=== PATIENT | female | born 1965 | race Caucasian/White ===

== ENCOUNTER → 2017-06-16 07:47 | Outpatient (CLI) | payer OTHER, SELFPAY ==
--- NOTE | 2017-06-16 07:55 | CT_ITS ---
STUDY: CT CHEST WITHOUT CONTRAST REASON FOR EXAM: Female, 52 years old. Follow-up for bilateral lung nodules. RADIATION DOSAGE (If Supplied By Facility): CTDIvol = ( 19.83 ) mGy, DLP = ( 698.68 ) mGycm TECHNIQUE: Transaxial imaging was performed without the administration of intravenous contrast material. Multiplanar coronal and sagittal images were reformatted. Individualized dose optimization techniques were used for this CT. COMPARISON: Comparison is made with prior study dated December 19, 2016. FINDINGS: Stable appearance of the tiny nodules seen in both lungs. There is no demonstrated pleural abnormality. Normal heart and pericardium. There are multiple small lymph nodes within the mediastinum, which are normal in size and morphology most compatible with reactive lymph hyperplasia. Normal hilar regions. Normal unenhanced pulmonary arteries. Normal aorta arch and descending thoracic aorta. Normal osseous structures. There is no demonstrated abnormality of the visualized upper abdomen. CT/Chest without Contrast IMPRESSION: Stable examination. Twelve-month follow-up is recommended. Electronically Signed: Jesus Chu MD at 8:48 EDT Tel [phone], Service support ,
== END ==
PROVIDERS: Family Provider Family Medicine; PCP Family Medicine; Visit Provider Family Medicine
DX: R91.8 Other nonspecific abnormal finding of lung field (principal)
CPT/HCPCS: 71250

== ENCOUNTER → 2017-09-14 16:12 | Outpatient (CLI) | payer OTHER, SELFPAY ==
--- NOTE | 2017-09-14 16:19 | BI_ITS ---
MAMMOGRAPHY - BILATERAL SCREENING REASON FOR EXAM: Female, 52 years old. Routine annual screening examination. PERTINENT HISTORY: Non-contributory. TECHNIQUE: Digital bilateral breast mychal (3D mammographic acquisition) in the CC and MLO projections. 2-D mediolateral oblique (MLO) and craniocaudad (CC) views of both breasts were obtained. CAD: Full Field Digital Mammography with Computer Added Detection was performed. COMPARISON: Comparison is made with prior study dated September 08, 2016 and September 08, 2015. FINDINGS: Breast Composition: There are scattered areas of fibroglandular density. There are no dominant masses or suspicious calcifications. Stable 8.9 mm well-defined nodular density in the upper aspect of the right breast. This most likely represents a small lymph node. No other significant abnormalities are identified. There has been no significant change since the prior study. BI/SCREENING MAMM (CAD), BILAT IMPRESSION: Stable bilateral screening mammogram. Yearly follow-up mammogram recommended. (A) ASSESSMENT CATEGORY: BIRADS Category 2: Benign. A letter regarding these results will be sent to the patient by the facility within 30 days. Approximately 10% of breast cancers are not detected by mammography. A normal mammogram should not delay biopsy of a clinically suspicious abnormality. [id number] Electronically Signed: Jesus Chu MD at 10:19 EDT Tel [phone], Service support ,
== END ==
PROVIDERS: Family Provider Family Medicine; PCP Family Medicine
DX: Z12.31 Encounter for screening mammogram for malignant neoplasm of breast (principal)
CPT/HCPCS: 77063; 77067

== ENCOUNTER → 2017-11-08 14:46 | Outpatient (CLI) | payer OTHER, SELFPAY ==
--- NOTE | 2017-11-08 14:49 | VDLE_ITS ---
Reason For Study: PAIN RIGHT LEFT GSV is normal. GSV is normal. CFV is compressible, spontaneous, phasic, CFV is compressible, spontaneous, phasic, competent and demonstrates normal competent, and demonstrates normal augmentation. augmentation. FV is compressible, spontaneous, phasic, FV is compressible, spontaneous, phasic, competent and demonstrates normal competent and demonstrates normal augmentation. augmentation. POP V is compressible, spontaneous, phasic, POP V is compressible, spontaneous, phasic, competent and demonstrates normal competent and demonstrates normal augmentation. augmentation. T/P Trunk is compressible. T/P Trunk is compressible. PTV is compressible. PTV is compressible. RT PerV is compressible. LT PerV is compressible. Procedure Exam performed in department. Difficult to visualize proximal calf veins bilaterally. Mid-Distal PTV and PeroV are compressible bilaterally. A preliminary report was called and/or faxed to DR CARSON. Interpretation Summary Deep veins of the lower extremities are bilaterally patent and compressible segmentally. There is no evidence of deep vein thrombosis on either side. Valvular competence appears intact within the proximal deep venous systems bilaterally. The greater saphenous veins appear bilaterally patent and compressible segmentally. Ordering Physician: Bhavik Carson Referring Physician: AVNI JI Performed By: Audrey Rico, BRANDON, RVT
== END ==
PROVIDERS: Family Provider Family Medicine; PCP Family Medicine; Visit Provider Podiatrist Foot & Ankle Surgery
DX: I82.409 Acute embolism and thrombosis of unspecified deep veins of unspecified lower extremity (principal); M79.669 Pain in unspecified lower leg; Z86.718 Personal history of other venous thrombosis and embolism
CPT/HCPCS: 93970

== ENCOUNTER → 2018-06-08 07:42 | Outpatient (CLI) | payer OTHER, SELFPAY ==
--- NOTE | 2018-06-08 07:50 | CT_ITS ---
STUDY: CT CHEST WITHOUT CONTRAST REASON FOR EXAM: Female, 53 years old. Lung nodules RADIATION DOSAGE (If Supplied By Facility): CTDIvol = ( 19.67 ) mGy, DLP = ( 717.59 ) mGycm TECHNIQUE: Transaxial imaging was performed without the administration of intravenous contrast material. Individualized dose optimization techniques were used for this CT. COMPARISON: None. FINDINGS: Lungs are clear of acute infiltration. There are multiple tiny bilateral noncalcified subcentimeter nodules the largest measuring approximately 6 mm in size in the right middle lobe.. There is no demonstrated pleural abnormality. Normal heart and pericardium. Normal mediastinum. Normal hilar regions. Normal unenhanced pulmonary arteries. Normal aorta arch and descending thoracic aorta. Dorsal spine demonstrates mild spondylosis There is no demonstrated abnormality of the visualized upper abdomen. No significant change since prior study CT/Chest without Contrast IMPRESSION: Stable appearance to bilateral subcentimeter nodules the largest measuring approximately 6 mm in size. Otherwise no significant abnormality unchanged since previous study Electronically Signed: Feliciano Loving MD at 21:25 EDT , Service support ,
== END ==
PROVIDERS: Family Provider Family Medicine; PCP Family Medicine; Referring Provider Family Medicine; Visit Provider Family Medicine
DX: R91.8 Other nonspecific abnormal finding of lung field (principal); R93.89 Abnormal findings on diagnostic imaging of other specified body structures
CPT/HCPCS: 71250

== ENCOUNTER → 2018-09-25 16:45 | Outpatient (CLI) | payer OTHER, SELFPAY ==
--- NOTE | 2018-09-25 16:47 | BI_ITS ---
MAMMOGRAPHY - BILATERAL SCREENING REASON FOR EXAM: Female, 53 years old. Routine annual screening examination. PERTINENT HISTORY: Non-contributory. TECHNIQUE: Digital bilateral breast jn (3D mammographic acquisition) in the CC and MLO projections. 2-D mediolateral oblique (MLO) and craniocaudad (CC) views of both breasts were obtained. CAD: Full Field Digital Mammography with Computer Added Detection was performed. COMPARISON: Comparison is made with prior examination dated September 14, 2017 and September 08, 2016. FINDINGS: Breast Composition: There are scattered areas of fibroglandular density. There are no dominant masses or suspicious calcifications. There is a stable 1 cm well-defined nodule in the upper lateral aspect of the right breast. This most likely represents a lymph node. This has been stable since multiple prior examinations. No other significant abnormalities are identified. There has been no significant change since the prior study. BI/SCREEN MAMM (CAD) W/JN BILAT IMPRESSION: Stable bilateral screening mammogram. Yearly follow-up mammogram recommended. (A) ASSESSMENT CATEGORY: BIRADS Category 2: Benign. A letter regarding these results will be sent to the patient by the facility within 30 days. Approximately 10% of breast cancers are not detected by mammography. A normal mammogram should not delay biopsy of a clinically suspicious abnormality. [id number] Electronically Signed: Jesus Chu, at 9:23 EDT , Service support ,
== END ==
PROVIDERS: Family Provider Family Medicine; PCP Family Medicine
DX: Z12.31 Encounter for screening mammogram for malignant neoplasm of breast (principal)
CPT/HCPCS: 77063; 77067

== ENCOUNTER → 2019-01-16 13:21 | Outpatient (CLI) | payer OTHER, SELFPAY ==
--- NOTE | 2019-01-16 13:23 | RAD_ITS ---
STUDY: X-RAY CHEST REASON FOR EXAM: Female, 53 years old. Cough TECHNIQUE: PA and lateral views of the chest COMPARISON: None. FINDINGS: The lungs are clear. There are no pleural effusions. There is no pneumothorax. The heart is normal in size. The visualized osseous structures are within normal limits. RAD/Chest PA and Lateral IMPRESSION: No acute thoracic pathology. Electronically Signed: Feliciano Chester, at 17:14 EST Tel , Service support ,
== END ==
PROVIDERS: Family Provider Family Medicine; PCP Family Medicine; Referring Provider Family Medicine; Visit Provider Family Medicine
DX: R05 Cough (principal)
CPT/HCPCS: 71046

== ENCOUNTER → 2019-01-17 15:33 | Outpatient (CLI) | payer OTHER, SELFPAY ==
--- NOTE | 2019-01-17 15:45 | CT_ITS ---
STUDY: CT CHEST WITH CONTRAST REASON FOR EXAM: Female, 53 years old. Shortness of breath RADIATION DOSAGE (If Supplied By Facility): CTDIvol = ( 12.24 ) mGy, DLP = ( 583.73 ) mGycm TECHNIQUE: Transaxial imaging was performed following intravenous administration of IV Isovue 370 100mL. Individualized dose optimization techniques were used for this CT. COMPARISON: CT chest 06/08/2018. FINDINGS: There is hazy infiltrate in the peripheral right upper lobe on series 4 image 37. There is a stable 3 mm right middle lobe nodule on image 63 and 4 mm right middle lobe nodule on image 66. Stable 3 mm posterior right upper lobe nodule on image 31. There is no demonstrated pleural abnormality. Normal heart and pericardium. Normal mediastinum. Normal hilar regions. Normal enhanced pulmonary arteries. Normal aorta arch and descending thoracic aorta. Normal osseous structures. There is no demonstrated abnormality of the visualized upper abdomen. CT/Chest WITH Contrast IMPRESSION: Hazy infiltrate in the peripheral right upper lobe may represent pneumonia in the proper clinical setting. Follow-up to resolution is recommended to exclude underlying nodule. Stable 3 to 4 mm pulmonary nodules. Electronically Signed: Sergo Zuniga, at 16:33 EST Tel , Service support ,
== END ==
PROVIDERS: Family Provider Family Medicine; PCP Family Medicine; Referring Provider Family Medicine; Visit Provider Family Medicine
DX: R06.09 Other forms of dyspnea (principal); R07.9 Chest pain, unspecified; R91.8 Other nonspecific abnormal finding of lung field
CPT/HCPCS: 71260; Q9967

== ENCOUNTER → 2019-09-04 17:15 | Outpatient (CLI) | payer OTHER, SELFPAY | PROVIDERS: PCP Family Medicine; Referring Provider Family Medicine; Visit Provider Family Medicine | DX: Z20.828 Contact with and (suspected) exposure to other viral communicable diseases (principal) | CPT/HCPCS: 87635; G2023; U0003 ==

== ENCOUNTER → 2019-09-09 11:14 | Outpatient (CLI) | payer OTHER, SELFPAY | PROVIDERS: PCP Family Medicine; Referring Provider Family Medicine; Visit Provider Family Medicine | DX: Z20.828 Contact with and (suspected) exposure to other viral communicable diseases (principal); R50.9 Fever, unspecified | CPT/HCPCS: 87635; G2023; U0003 ==

== ENCOUNTER → 2019-10-03 16:21 | Outpatient (CLI) | payer OTHER, SELFPAY ==
[2019-10-04 07:51] LABS: SARS-COV-2 TOTAL ABS Nonreactive (Nonreactive)
[2019-10-05 21:02] LABS: HSV 1 IgG < 0.91 index (0.00-0.90); HSV 2 IgG 0.96 index (0.00-0.90)
[2019-10-10 11:06] LABS: Rapid Plasmin Reagin (RPR) NONREACTIVE (NONREACTIVE)
== END ==
PROVIDERS: PCP Family Medicine; Visit Provider Family Medicine
DX: N39.0 Urinary tract infection, site not specified (principal); R05 Cough; Z20.828 Contact with and (suspected) exposure to other viral communicable diseases; Z20.2 Contact with and (suspected) exposure to infections with a predominantly sexual mode of transmission
CPT/HCPCS: 36415; 86592; 86695; 86696; 86769; 87086; 87088

== ENCOUNTER → 2019-10-07 16:18 | Outpatient (CLI) | payer OTHER, SELFPAY ==
--- NOTE | 2019-10-07 16:21 | BI_ITS ---
MAMMOGRAPHY - BILATERAL SCREENING REASON FOR EXAM: Female, 54 years old. Routine annual screening examination. PERTINENT HISTORY: Non-contributory. TECHNIQUE: Digital bilateral breast jn (3D mammographic acquisition) in the CC and MLO projections. 2-D mediolateral oblique (MLO) and craniocaudad (CC) views of both breasts were obtained. CAD: Full Field Digital Mammography with Computer Added Detection was performed. COMPARISON: Comparison is made with prior study dated 09/25/2018 and 09/14/2017. FINDINGS: Breast Composition: There are scattered areas of fibroglandular density. There are no dominant masses or suspicious calcifications. Stable 1 cm well-defined nodule in the upper lateral aspect of the right breast. This likely represents a small lymph node. No other significant abnormalities are identified. There has been no significant change since the prior study. BI/SCREEN MAMM (CAD) W/JN BILAT IMPRESSION: Stable bilateral screening mammogram. Yearly follow-up mammogram recommended. (A) ASSESSMENT CATEGORY: BIRADS Category 2: Benign. A letter regarding these results will be sent to the patient by the facility within 30 days. Approximately 10% of breast cancers are not detected by mammography. A normal mammogram should not delay biopsy of a clinically suspicious abnormality. [id number] Electronically Signed: Jesus Chu, at 8:41 EDT , Service support ,
== END ==
PROVIDERS: PCP Family Medicine; Referring Provider Family Medicine; Visit Provider Family Medicine
DX: Z12.31 Encounter for screening mammogram for malignant neoplasm of breast (principal)
CPT/HCPCS: 77063; 77067

== ENCOUNTER → 2019-10-09 15:01 | Outpatient (CLI) | payer OTHER, SELFPAY ==
[2019-10-09 17:27] LABS: CRP 6.22 mg/L (0.0-3.0)
[2019-10-09 17:36] LABS: Erythrocyte Sedimentation Rate 11 mm/hr (0-30)
[2019-10-11 20:07] LABS: SJOGREN'S Anti-SS-A test < 0.2 AI (0.0-0.9); SJOGREN'S Anti-SS-B test < 0.2 AI (0.0-0.9)
[2019-10-11 21:44] LABS: Anti-Nuclear Antibody Test Negative (.)
== END ==
PROVIDERS: PCP Family Medicine; Visit Provider Family Medicine
DX: N76.81 Mucositis (ulcerative) of vagina and vulva (principal); M25.50 Pain in unspecified joint; K11.7 Disturbances of salivary secretion
CPT/HCPCS: 36415; 85652; 86038; 86140; 86235

== ENCOUNTER → 2019-10-17 11:51 | Outpatient (CLI) | payer OTHER, SELFPAY ==
[2019-10-19 13:48] LABS: HSV 2 IgG < 0.91 index (0.00-0.90)
== END ==
PROVIDERS: PCP Family Medicine; Visit Provider Family Medicine
DX: N76.6 Ulceration of vulva (principal); N76.5 Ulceration of vagina
CPT/HCPCS: 36415; 86695; 86696; 87255

== ENCOUNTER → 2020-01-21 17:34 | Outpatient (CLI) | payer OTHER, SELFPAY | PROVIDERS: PCP Family Medicine; Referring Provider Family Medicine; Visit Provider Family Medicine | DX: Z20.828 Contact with and (suspected) exposure to other viral communicable diseases (principal) | CPT/HCPCS: 87635; C9803; U0003 ==

== ENCOUNTER → 2020-10-13 15:37 | Outpatient (CLI) | payer OTHER, SELFPAY ==
--- NOTE | 2020-10-13 15:41 | BI_ITS ---
MAMMOGRAPHY - BILATERAL SCREENING REASON FOR EXAM: Female, 55 years old. Routine annual screening examination. PERTINENT HISTORY: Non-contributory. TECHNIQUE: Digital bilateral breast jn (3D mammographic acquisition) in the CC and MLO projections. 2-D mediolateral oblique (MLO) and craniocaudad (CC) views of both breasts were obtained. CAD: Full Field Digital Mammography with Computer Added Detection was performed. COMPARISON: Comparison is made with prior examination dated 10/07/2019 and 09/25/2018. FINDINGS: Breast Composition: There are scattered areas of fibroglandular density. There are no dominant masses or suspicious calcifications. Stable 1 cm well-defined nodule in the upper lateral aspect of the right breast. A central fatty hilum is seen suggestive of a small lymph node. Stable benign appearing right axillary lymph nodes. No other significant abnormalities are identified. There has been no significant change since the prior study. BI/SCRN MAMM (CAD)W/JN BILAT IMPRESSION: Stable bilateral screening mammogram. Yearly follow-up mammogram recommended. (A) ASSESSMENT CATEGORY: BIRADS Category 2: Benign. A letter regarding these results will be sent to the patient by the facility within 30 days. Approximately 10% of breast cancers are not detected by mammography. A normal mammogram should not delay biopsy of a clinically suspicious abnormality. [id number] Electronically Signed: Jesus Chu MD at 8:12 EDT , Service support ,
== END ==
PROVIDERS: PCP Family Medicine; Referring Provider Obstetrics & Gynecology; Visit Provider Obstetrics & Gynecology
DX: Z12.31 Encounter for screening mammogram for malignant neoplasm of breast (principal)
CPT/HCPCS: 77063; 77067

== ENCOUNTER → 2021-01-01 16:15 | Outpatient (CLI) | payer OTHER, SELFPAY | PROVIDERS: PCP Family Medicine; Visit Provider Family Medicine | DX: Z20.828 Contact with and (suspected) exposure to other viral communicable diseases (principal) | CPT/HCPCS: 87635; U0005; U0003 ==

== ENCOUNTER 2021-03-04 09:10 | Outpatient (CLI) | payer OTHER, SELFPAY | END 2021-03-04 23:59 | disposition short-term general hospital (02) | LOC: LABSPEC 03-05 09:11 | PROVIDERS: PCP Family Medicine; Visit Provider Family Medicine | DX: Z11.52 Encounter for screening for COVID-19 (principal) | CPT/HCPCS: 87635; U0003; U0005 ==

== ENCOUNTER → 2021-08-18 | Outpatient (CLI) | payer OTHER, SELFPAY | END | disposition home or self-care (01) | PROVIDERS: PCP Family Medicine | DX: M79.89 Other specified soft tissue disorders (principal); I87.2 Venous insufficiency (chronic) (peripheral); I89.0 Lymphedema, not elsewhere classified; R60.9 Edema, unspecified | CPT/HCPCS: 36415; 83520 ==

== ENCOUNTER → 2021-08-26 | Outpatient (CLI) | payer OTHER, SELFPAY | END | disposition home or self-care (01) | PROVIDERS: PCP Family Medicine | DX: M79.89 Other specified soft tissue disorders (principal); I87.2 Venous insufficiency (chronic) (peripheral); I89.0 Lymphedema, not elsewhere classified; R60.9 Edema, unspecified; L29.9 Pruritus, unspecified | CPT/HCPCS: 36415 ==

== ENCOUNTER → 2021-09-15 | Outpatient (CLI) | payer OTHER, SELFPAY ==
--- NOTE | 2021-09-15 07:48 | VDLE_ITS ---
Reason For Study: swelling RIGHT LEFT CFV is compressible, spontaneous, phasic, CFV is compressible, spontaneous, phasic, competent and demonstrates normal competent, and demonstrates normal augmentation. augmentation. FV is compressible, spontaneous, phasic, FV is compressible, spontaneous, phasic, competent and demonstrates normal competent and demonstrates normal augmentation. augmentation. POP V is compressible, spontaneous, phasic, POP V is compressible, spontaneous, phasic, competent and demonstrates normal competent and demonstrates normal augmentation. augmentation. T/P Trunk is compressible. T/P Trunk is compressible. PTV is compressible. PTV is compressible. RT PerV is compressible. LT PerV is compressible. SFJ is INCOMPETENT and measures .73 cm. SFJ is INCOMPETENT and measures .92 cm. GSV proximal thigh measures .47 x .53 cm. GSV proximal thigh measures .66 x .69 cm. GSV at knee measures .33 x .34 cm. GSV at knee measures .58 x .53 cm. GSV INCOMPETENT throughout for greater than GSV INCOMPETENT throughout for greater than 0.5 seconds. 0.5 seconds. SSV proximal calf is INCOMPETENT for greater SSV proximal calf is INCOMPETENT for greater than 0.5 seconds and measures .21 x .23 cm. than 0.5 seconds and measures .23 x .26 cm. Guide Travel V 10 cm proximal to the medial ASV mid calf is INCOMPETENT for greater than malleolus isincompetent for greater than .5 0.5 seconds and measures .47 x .53 cm. seconds. ASV at knee is INCOMPETENT for greater than Procedure 0.5 seconds and measures .39 x .42 cm. This is a venous duplex using B-mode, color flow and spectral Doppler. Exam performed in department. The exam was diagnostic. VL/Venous Duplex US - Prosper Extrem Interpretation Summary Deep veins of the lower extremities are bilaterally patent and compressible seg mentally. There is no evidence of deep vein thrombosis on either side. Valvular competence appears in tact within the proximal deep venous systems bilaterally. The great saphenous veins appear bila terally patent and compressible segmentally. Sapheno-femoral junctions are bilaterally incompetent . Segmental valvular incompetence is noted within the great saphenous veins bilaterally. Small saphe nous veins are patent and incompetent bilaterally. The accessory saphenous vein at the level of the l eft knee is incompetent. The accessory saphenous vein in the left mid-calf is incompetent. An incompetent salon professional vein is noted in the right calf, located 10 centimeters proximal to the right medial malleolus. Ordering Physician: SALENA PHAM Referring Physician: SALENA PHAM Performed By: Marshall Grubbs RVT
== END | disposition home or self-care (01) ==
PROVIDERS: PCP Family Medicine
DX: M79.89 Other specified soft tissue disorders (principal); I87.2 Venous insufficiency (chronic) (peripheral); I89.0 Lymphedema, not elsewhere classified; R60.9 Edema, unspecified
CPT/HCPCS: 93970

== ENCOUNTER → 2021-10-14 | Outpatient (CLI) | payer OTHER, SELFPAY ==
--- NOTE | 2021-10-14 16:16 | BI_ITS ---
MAMMOGRAPHY - BILATERAL SCREENING REASON FOR EXAM: Female, 56 years old. Routine annual screening examination. PERTINENT HISTORY: Non-contributory. TECHNIQUE: Digital bilateral breast jn (3D mammographic acquisition) in the CC and MLO projections. 2-D mediolateral oblique (MLO) and craniocaudad (CC) views of both breasts were obtained. CAD: Full Field Digital Mammography with Computer Added Detection was performed. COMPARISON: Comparison is made with prior study dated 10/13/2020 and 10/07/2019. FINDINGS: Breast Composition: There are scattered areas of fibroglandular density. There are no dominant masses or suspicious calcifications. The previously seen well-defined nodule in the upper outer aspect of the right breast has decreased in size. It presently measures 4.8 mm. No other significant abnormalities are identified. There has been no significant change since the prior study. BI/SCRN MAMM (CAD)W/JN BILAT IMPRESSION: Stable bilateral screening mammogram. Yearly follow-up mammogram recommended. (A) ASSESSMENT CATEGORY: BIRADS Category 2: Benign. A letter regarding these results will be sent to the patient by the facility within 30 days. Approximately 10% of breast cancers are not detected by mammography. A normal mammogram should not delay biopsy of a clinically suspicious abnormality. [id number] Electronically Signed: Jesus Chu MD at 8:14 EDT ,
== END | disposition home or self-care (01) ==
LOC: OPBI 10-15 07:26
PROVIDERS: PCP Family Medicine; Visit Provider Obstetrics & Gynecology
DX: Z12.31 Encounter for screening mammogram for malignant neoplasm of breast (principal)
CPT/HCPCS: 77063; 77067

== ENCOUNTER → 2022-03-14 | Outpatient (CLI) | payer OTHER, SELFPAY | END | disposition home or self-care (01) | PROVIDERS: PCP Family Medicine | DX: M79.89 Other specified soft tissue disorders (principal); L29.9 Pruritus, unspecified; I87.2 Venous insufficiency (chronic) (peripheral) | CPT/HCPCS: 36415; 83520 ==

== ENCOUNTER 2022-07-08 07:43 | Outpatient (RCR) | payer OTHER, SELFPAY ==
[2022-07-08 08:02] VITALS: BP 144/77; PULSE 85; RESP 20; TEMP 36; BMI 41.8
--- NOTE | 2022-07-08 13:28 | PCM.WC.HP ---
History of Present Illness Date of Service: 07/08/22 Chief Complaint: Edema to lower legs bilaterally, dermatitis History of Wound: Marli is a 57 yo woman who presents to the wound center today for evaluation and treatment of lymphedema. She has been seen and evaluated by vascular surgery multiple times and dermatology as well. She recently underwent venous ablation but did not notice much improvement afterward. She has seen Dr. Troy, Dr. Talley and Dr. Ho. She has significant episodes of pruritus and excoriates her skin of her lower legs. She has never been treated with UNNA boots. She does wear compression stockings daily and tries to elevate her legs when possible and she is working on weight loss. She denies any fever, chills, increased pain. [facility] Medical History (Updated 07/08/22 @ 13:[address] Marli Weiss DO) History of fibula fracture Home Medications atorvastatin 10 mg tablet 5 mg PO QHS 10/03/14 [History Last Taken Unknown] fluoxetine 10 mg capsule 10 mg PO DAILY 10/03/14 [History Last Taken Unknown] rivaroxaban 20 mg tablet (Xarelto) 20 mg PO DAILY 10/03/14 [History Last Taken Unknown] estradiol 2 mg tablet 2 mg PO DAILY 12/19/16 [History Last Taken Unknown] lansoprazole 30 mg capsule,delayed release 30 mg PO DAILY 12/19/16 [History Last Taken Unknown] cyanocobalamin (B12)-cobamamide 5,000 mcg-100 mcg sublingual lozenge (B12) suze sublingual 07/08/22 [History Last Taken Unknown] dextroamphetamine-amphetamine 5 mg tablet (Adderall) 5 mg PO DAILY 07/08/22 [History Last Taken Unknown] levothyroxine 88 mcg capsule 88 mcg PO DAILY 07/08/22 [History Last Taken Unknown] metformin 500 mg tablet 500 mg PO DAILY 07/08/22 [History Last Taken Unknown] omeprazole 40 mg capsule,delayed release 20 mg PO BID 07/08/22 [History Last Taken Unknown] vit D3-folic acid-vit B2-B6-B12 2,000 unit-800 mcg-0.32 mg tablet tab PO 07/08/22 [History Last Taken Unknown] Allergy/AdvReac Type Severity Reaction Status Date / Time No Known Allergies Allergy Verified 07/08/22 08:22 Surgical History History of hysterectomy Social History Smoking Status: Former smoker ROS Constitutional Constitutional: Denies chills, fatigue or fever(s) Eyes Eyes: Denies blurry vision, change in vision or loss of vision ENT HEENT: Denies dysphagia, hearing loss or sore throat Cardiovascular Cardiovascular: Denies chest pain, edema or palpitations Respiratory/Chest Respiratory/Chest: Denies dry cough, dyspnea, dyspnea on exertion, productive cough or wheezing Gastrointestinal Gastrointestinal: Denies diarrhea, nausea or vomiting Genitourinary Genitourinary: Denies dysuria or polyuria Musculoskeletal Musculoskeletal: Denies arthralgias, joint stiffness or muscle weakness Integumentary Integumentary: Reports erythema and wounds Neurologic Neurologic: Denies dizziness, memory loss or weakness Psychiatric Psychiatric: Denies homicidal ideation or suicidal ideation Endocrine Endocrinology: Denies polydipsia, polyphagia or polyuria Hematologic/Lymphatic Hematologic/Lymphatic: Denies easy bleeding or easy bruising Allergic/Immunologic Allergic/Immunologic: Denies throat swelling, tongue swelling or urticaria Vital Signs Vital Signs Vital Signs: 07/08/22 08:02 Temperature 96.8 F L Temperature Source Temporal Pulse Rate 85 Respiratory Rate 20 H Blood Pressure 144/77 H Blood Pressure Mean 99 Blood Pressure Source Monitor Weight Weight: 117.386 kg Body Mass Index (BMI) 41.8 Physical Exam Const alert, oriented x3 and no apparent distress General Appearance: cooperative and comfortable HEENT normocephalic and head/scalp atraumatic Lymph Lymphatic: lymphedema moderate and non-pitting Resp normal respiratory effort Effort and Inspection: able to speak in complete sentences Cardio regular rate and regular rhythm Skin Wounds: wounds noted Wound Narrative: as in clinical panel Psych mental status grossly normal, thought process normal, cooperative and affect normal Debridement Note Debridement Note Post-Debridement Measurements and Additional Note: Post-Debridement Measurements/Treatment - Nurse 1 - General Ulcer Assessment Start: 07/08/22 07:52 Freq: Status: Active Protocol: AARON Activity Type Activity Date Activity User E-sign Co-sign Detail Recorded Client Recorded Date Recorded By Document 07/08/22 08:02 AMY [id number] 07/08/22 08:19 DL 07/08/22 08:02 - Today's Visit Information Type of service Initial Visit Arrival Mode Ambulatory Transfer Assistance None Patient Identification Verified (Name & Yes ) Patient Requires Transmission-Based No Precautions Height and Weight Height 5 ft 6 in Weight 117.386 kg Weight in Pounds 258.8 lbs Body Mass Index (BMI) 41.8 BMI Classification Obese BSA - Lennie 2.23 Vital Signs Temperature (97.8 F-99.1 F) 96.8 F L Temperature Source Temporal Pulse Rate (60-100) 85 Pulse Location Monitor Respiratory Rate (12-18) 20 H Respiratory rate source Observation Blood Pressure (90/60-120/80) 144/77 H Blood Pressure Mean 99 Source Monitor Pain Scale: 0-10 Numeric Is Patient Pain Free? Yes Lower Extremity Assessment/ Foot Assessment/ Toe Nail Assessment Right -Posterior Tibial Palpable Yes -Dorsalis Pedis Palpable Yes -Extremity Color Normal -Hair Growth on Legs No -Hair Growth on Toes No -Temperature of Extremity Warm -Capillary Refill Greater than 3 Seconds -Dependent Rubor No -Blanched when Elevated No -Lipodermatosclerosis No -Other Deformity No -Prior Foot Ulcer No -Charcot Joint No -Prior Amputation No -Thick No -Discolored No -Deformed No -Improper Length & Hygeine No Left -Posterior Tibial Palpable Yes -Dorsalis Pedis Palpable Yes -Extremity Color Normal -Hair Growth on Legs No -Hair Growth on Toes No -Temperature of Extremity Warm -Capillary Refill Greater than 3 Seconds -Dependent Rubor No -Blanched when Elevated No -Lipodermatosclerosis No -Other Deformity No -Prior Foot Ulcer No -Charcot Joint No -Prior Amputation No -Thick No -Discolored No -Deformed No -Improper Length & Hygeine No Neuropathy Assessment Feet - Top Side and Bottom <Entered> (a) Communication Assessment Preferred language Portuguese Able to Read Yes Able to Write Yes Right Hearing Abillity Normal Left Hearing Abillity Normal Visual Assistive Devices Glasses Teaching Assessment Preferences Verbal,Written Readiness To Learn Good Willingness to Engage in Self Management High Activies Readiness to Engage in Self Management High Activities Anxiety Level Calm Cooperation Cooperative Perception Coherent Interest in Health Problem Asks Questions Education Importance Acknowledges Need Does Patient Smoke tobacco or other No substances Smoking Status Former smoker Is Patient Diabetic No Functional Assessment Recent Decline in Ability to Perform Denies Any Declines Culture/Protestant/Investigation Specialist Cultural/Protestant Needs that may affect No Treatment Plan Would you allow our hospital microbial specialist to No meet you for the purpose of spiritual/ emotional support? Investigation Specialist to contact place of denominational No (a) 1 - + 2 - + 3 - _ 4 - _ - Nurse 1 - General Ulcer Measurement Start: 07/08/22 07:52 Freq: Status: Active Protocol: Activity Type Activity Date Activity User E-sign Co-sign Detail Recorded Client Recorded Date Recorded By Document 07/08/22 08:02 DL [id number] 07/08/22 08:19 DL 07/08/22 08:02 Wound Center Nurse 1 Right Calf (cm) 46.5 Right Ankle (cm) 24.8 Left Calf (cm) 47.5 Left Ankle (cm) 26 WC - Nurse 2 - General Ulcer CM Notes Start: 07/08/22 07:52 Freq: Status: Active Protocol: Activity Type Activity Date Activity User E-sign Co-sign Detail Recorded Client Recorded Date Recorded By Document 07/08/22 08:36 MW [id number] 07/08/22 08:47 MW 07/08/22 08:36 Pain Scale: 0-10 Numeric Is Patient Pain Free? Yes - Nurse 3 - General Ulcer D/C NN Start: 07/08/22 07:52 Freq: Status: Active Protocol: Activity Type Activity Date Activity User E-sign Co-sign Detail Recorded Client Recorded Date Recorded By Document 07/08/22 08:54 DL [id number] 07/08/22 08:56 DL 07/08/22 08:54 Wound Care Center Nurse 3 laura -Multi-Layered Wrap Application Multi-Layer Comp - Bilat ($ ) -Other Unna under Treatment Response Procedure Tolerated Well Pain Scale: 0-10 Numeric Is Patient Pain Free? Yes WC - Visit Discharge Discharge Condition Stable Ambulatory Status Ambulatory Transportation Private Auto Assessment/Plan Assessment/Plan (1) Obesity: CODE(S): E66.9 - Obesity, unspecified (2) Lymphedema due to venous disease: CODE(S): I89.0 - Lymphedema, not elsewhere classified; I99.9 - Unspecified disorder of circulatory system (3) Venous stasis dermatitis of both lower extremities: CODE(S): I87.2 - Venous insufficiency (chronic) (peripheral) PLAN: Plan Evaluation performed today in clinic as annotated above. No debridement necessary. At home wound-care instructions: Will apply 3M dressings bilaterally for compression and Zinc gauze underneath to treat dermatitis and try to decrease edema. Keep dressing clean and dry. Change on Monday or Monday. Referred to PCP for kenalog injection for pruritis as well. Off-loading: The patient was instructed to avoid pressure and friction on the affected areas. Reposition every 2 hours at minimum. Avoid prolonged standing and/or dangling of legs. When seated, feet should be elevated at chest level. Frequent ambulation is encouraged. Diet: Patient encouraged to increase protein intake while taking caution to avoid high carbohydrate and/or sugar intake. Labs/cultures/imaging: Follow-up: Return in 1 week for wound care follow up. Return sooner or report to the emergency room should symptoms worsen, or new symptoms arise. Note: [employer] speech recognition anatomic pathology manager software was used to create portions of this document. Sound-alike and misspelled words, as well as other anatomic pathology manager errors may be contained in the documentation.
== END 2022-07-27 23:59 | disposition home or self-care (01) ==
LOC: WC 07:43
PROVIDERS: PCP Family Medicine; Referring Provider Family Medicine; Visit Provider Family Medicine
DX: I87.2 Venous insufficiency (chronic) (peripheral) (principal); E66.9 Obesity, unspecified; L30.9 Dermatitis, unspecified; Z87.891 Personal history of nicotine dependence; I89.0 Lymphedema, not elsewhere classified; G62.9 Polyneuropathy, unspecified
CPT/HCPCS: 29581; 99213; G0463

== ENCOUNTER → 2022-09-09 | Outpatient (CLI) | payer OTHER, SELFPAY ==
[2022-09-09 16:18] LABS: Absolute Lymphocyte Count 1.62 X10^3/uL (0.83-4.51); Absolute Neutrophil Count 4.6 X10^3/uL (2.0-7.7); Basophil# 0.03 X10^3/uL; Basophil% 0.4 % (0-1); Eosinophil# 0.07 X10^3/uL; Hematocrit 43.4 % (37-47); Hemoglobin 13.8 g/dL (12.0-15.0); Lymphocyte # 1.62 X10^3/ul (0.83-4.51); Lymphocyte % 23.2 % (19-41); Mean Corp Hgb Conc 31.8 g/dL (32-36); Mean Corpuscular Hgb 32.2 pg (27.0-32.0); Mean Corpuscular Volume 101.4 fL (81-99); Mean Platelet Vol. 9.9 fl (6.2-12.0); Monocyte# 0.65 X10^3/uL; Monocyte% 9.3 % (0-10); NRBC Flagged by Analyzer 0 % (0-5); Neutrophil % 65.8 % (47-70); Platelet Count 272 K/mm3 (150-450); RBC Distribution Width CV 14.1 % (11.6-14.6); RBC Distribution Width SD 52.8 fl (35.1-43.9); Red Blood Count 4.28 M/mm3 (4.2-5.4)
[2022-09-09 17:54] LABS: ALB/GLOB Ratio 0.7 RATIO (0.9-2.4); AST(SGOT) 14 U/L (15-37); Alanine Aminotransfer ALT/SGPT 23 U/L (13-56); Albumin, Serum 3.1 g/dL (3.2-5.0); Alkaline Phosphatase 100 U/L (45-117); Anion Gap 4 (5-15); BUN 16 mg/dL (7-18); BUN/Creat Ratio 17.6 RATIO (10-20); Calcium,Total 9.4 mg/dL (8.5-10.1); Chloride 111 mmol/L (98-107); Creatinine, Serum 0.91 mg/dL (0.55-1.02); EST Glomerular Filtration Rate 68 mL/min (>60); Est Glom Filt Rate - Afr Amer 82 mL/min (>60); Free T3 1.9 pg/mL (2.18-3.98); Globulin 4.2 g/dL (2.2-4.2); Glucose 92 mg/dL (74-106); Potassium 6.1 mmol/L (3.5-5.1); Protein, Total 7.3 g/dL (6.4-8.2); Sodium Level 143 mmol/L (136-145); T4 Free Direct 1.17 ng/dL (0.76-1.46); Thyroid Stim Hormone (TSH) 0.41 uIU/mL (0.358-3.74)
== END | disposition home or self-care (01) ==
LOC: MTLAB 13:47
PROVIDERS: PCP Family Medicine; Referring Provider Family Medicine; Visit Provider Family Medicine
DX: E03.9 Hypothyroidism, unspecified (principal); E55.9 Vitamin D deficiency, unspecified; E78.5 Hyperlipidemia, unspecified; Z51.81 Encounter for therapeutic drug level monitoring
CPT/HCPCS: 36415; 80053; 84439; 84443; 84481; 85025

== ENCOUNTER → 2022-09-12 | Outpatient (CLI) | payer OTHER, SELFPAY ==
[2022-09-12 15:18] LABS: Anion Gap 4 (5-15); BUN 16 mg/dL (7-18); BUN/Creat Ratio 17.5 RATIO (10-20); Calcium,Total 9.5 mg/dL (8.5-10.1); Chloride 111 mmol/L (98-107); Creatinine, Serum 0.91 mg/dL (0.55-1.02); EST Glomerular Filtration Rate 67 mL/min (>60); Est Glom Filt Rate - Afr Amer 81 mL/min (>60); Glucose 92 mg/dL (74-106); Magnesium 2.2 mg/dL (1.6-2.6); Potassium 4.7 mmol/L (3.5-5.1); Sodium Level 144 mmol/L (136-145)
== END | disposition home or self-care (01) ==
LOC: MTLAB 13:22
PROVIDERS: PCP Family Medicine; Referring Provider Family Medicine; Visit Provider Family Medicine
DX: R11.0 Nausea (principal); E87.5 Hyperkalemia
CPT/HCPCS: 36415; 80048; 83735

== ENCOUNTER → 2022-09-23 | Outpatient (CLI) | payer OTHER, SELFPAY ==
--- NOTE | 2022-09-23 11:50 | NM_ITS ---
CLINICAL: 57-year-old female with history of chronic nausea. SEMI-SOLID PHASE 99m Tc SULFUR COLLOID GASTRIC EMPTYING STUDY COMPARISON: None available FINDINGS: The patient was administered 1.0 mCi of 99m Tc sulfur colloid mixed with oatmeal and consumed per os. Image acquisitions in the anterior and posterior projections were obtained for 60 minutes. There is prompt visualization of the stomach. There is no gastroesophageal reflux identified. Zero kinetics are maintained throughout the duration of the acquisitions. The T ? raw data emptying was calculated to be 12.88 minutes, (Normal: 12-56 minutes). NM/Gastric Emptying Study IMPRESSION: 1. NORMAL 99m Tc sulfur colloid semi-solid phase (oatmeal) gastric emptying imaging examination. A. There is normal and preserved semi-solid phase gastric emptying compared to normal controls. (Rachael et al, J Nucl Med Tech 38: 186, 2010). Electronically Signed: Ramirez Jackson, at 10:19 EDT ,
== END | disposition home or self-care (01) ==
LOC: NM 11:49
PROVIDERS: PCP Family Medicine; Referring Provider Family Medicine; Visit Provider Family Medicine
DX: R11.0 Nausea (principal)
CPT/HCPCS: 78264; A9541

== ENCOUNTER → 2022-09-30 | Outpatient (CLI) | payer OTHER, SELFPAY ==
[2022-10-01 05:07] LABS: Immunoglobulin G 789 mg/dL (586-1602)
== END | disposition home or self-care (01) ==
LOC: MTLAB 09:54
PROVIDERS: PCP Family Medicine; Referring Provider Family Medicine; Visit Provider Family Medicine
DX: K20.90 Esophagitis, unspecified without bleeding (principal); R11.0 Nausea
CPT/HCPCS: 36415; 82784

== ENCOUNTER 2022-10-01 16:25 | Emergency (ER) | payer OTHER, SELFPAY ==
[2022-10-01 16:25] VITALS: BP 153/99; PULSE 90; RESP 16; TEMP 36.8; O2SAT 98; BMI 41.5
--- NOTE | 2022-10-01 16:35 | CT_ITS ---
EXAM: CT HEAD WITHOUT INTRAVENOUS CONTRAST CLINICAL INDICATION: head injury on thinner TECHNIQUE: Multiple axial images were obtained of the head without intravenous contrast. This CT exam was performed using one or more of the following dose reduction techniques: automated exposure control, adjustment of the mA and/or kV according to patient size, and/or use of iterative reconstruction technique. RADIATION DOSE: CTDIvol = 44.99 mGy, DLP = 812.98 mGy-cm COMPARISON: No relevant prior studies available. FINDINGS: BRAIN AND EXTRA-AXIAL SPACES: Unremarkable. No intra- or extra-axial hemorrhage. No evidence of acute infarct. No intracranial mass or mass effect. There is preservation of the nichols/white matter interface. Posterior fossa structures are unremarkable. Ventricles are appropriate for age. No hydrocephalus. Basal cisterns are patent. BONES/JOINTS: Unremarkable. No discrete lytic or blastic abnormalities. SINUSES: Unremarkable as visualized. Clear. MASTOID AIR CELLS: Unremarkable. Clear. ORBITS: Visualized globes, extraocular muscles, optic nerves and retrobulbar fat appear unremarkable. CT/Brain/Head without Contrast IMPRESSION: Negative head/brain CT without intravenous contrast. Electronically Signed: Barry Kyle MD at 17:27 EDT ,
--- NOTE | 2022-10-01 16:35 | CT_ITS ---
EXAM: CT MAXILLOFACIAL WITHOUT INTRAVENOUS CONTRAST CLINICAL INDICATION: nasal contusion TECHNIQUE: Helically acquired images were obtained of the face without intravenous contrast. This CT exam was performed using one or more of the following dose reduction techniques: automated exposure control, adjustment of the mA and/or kV according to patient size, and/or use of iterative reconstruction technique. RADIATION DOSE: CTDIvol = 29.38 mGy, DLP = 576.84 mGy-cm COMPARISON: No relevant prior studies available. FINDINGS: BONES/JOINTS: Slightly displaced nasal bone fracture. No discrete lytic or blastic abnormalities. SOFT TISSUES: Unremarkable. No focal subcutaneous swelling. No discrete fluid collections. ORBITS: Unremarkable. Both globes are unremarkable. Extraocular muscles are normal. Retrobulbar fat appears unremarkable. SINUSES: Unremarkable as visualized. Clear. MASTOID AIR CELLS: Unremarkable as visualized. Clear. DENTAL: No acute findings. No periodontal osseous erosion. CT/Sinus/Facial Bone IMPRESSION: Slightly displaced nasal bone fracture. Electronically Signed: Barry Kyle MD at 17:29 EDT ,
--- NOTE | 2022-10-01 16:36 | ED.VIS.FALL ---
HPI <TINA Jeter - Last Filed: 10/01/22 17:36> HPI - Fall History of Present Illness Chief Complaint: Fall Narrative Narrative: Patient tripped and fell on her way out of the bathroom last night and struck her face and nose on the ground. No LOC. She is on Eliquis for history of clots. She had minor nosebleeds off and on. Today when she told her daughter what happened she recommended she come to the ED since she is on a thinner. Patient denies headache, visual changes, nausea or vomiting. No other injuries. PFSH <TINA Jeter - Last Filed: 10/01/22 17:36> [facility] Medical History Depression History of fibula fracture Hypothyroid Home Medications atorvastatin 10 mg tablet 5 mg PO QHS 10/03/14 [History Last Taken Unknown] fluoxetine 10 mg capsule 10 mg PO DAILY 10/03/14 [History Last Taken Unknown] cyanocobalamin (B12)-cobamamide 5,000 mcg-100 mcg sublingual lozenge (B12) suze sublingual 07/08/22 [History Last Taken Unknown] dextroamphetamine-amphetamine 5 mg tablet (Adderall) 5 mg PO DAILY 07/08/22 [History Last Taken Unknown] levothyroxine 88 mcg capsule 88 mcg PO DAILY 07/08/22 [History Last Taken Unknown] metformin 500 mg tablet 500 mg PO DAILY 07/08/22 [History Last Taken Unknown] omeprazole 40 mg capsule,delayed release 20 mg PO BID 07/08/22 [History Last Taken Unknown] estradiol 2 mg tablet 2 mg PO DAILY #30 tabs 09/23/22 [Rx Last Taken Unknown] azithromycin 250 mg tablet See Rx Instructions PO .COMPLEX #6 tabs 11/16/22 [Rx Last Taken Unknown] Allergy/AdvReac Type Severity Reaction Status Date / Time eliquis Allergy Mild Rash Uncoded 11/16/22 14:59 xarelto Allergy Mild Rash Uncoded 11/16/22 14:59 Surgical History History of elbow surgery History of hysterectomy Social History Smoking Status: Former smoker ROS <TINA Jeter - Last Filed: 10/01/22 17:36> ROS ED ROS Narrative Eyes: Negative for visual change. GI: Negative for nausea, vomiting. Neuro: Negative for headache, motor/sensory dysfunction. Skin: Negative for laceration. Musc: Negative for joint pain, swelling, trauma. EXAM <TINA Jeter - Last Filed: 10/01/22 17:36> Physical Exam Narrative Exam Narrative: CONST: Patient sitting in no acute distress. EYES: Normal inspection. PERRLA, EOMI. ENT: Nasal bridge slightly swollen and tender with no deformity or crepitus, no epistaxis or nasal septal hematoma. Slight bruising under left eye, no altamirano sign, no hemotympanum, no CSF otorrhea or rhinorrhea. NECK: Normal inspection. No midline spinal tenderness or step-offs. RESP: No respiratory distress, CTAB. CVS: Regular rate and rhythm, no murmur, no gallop. SKIN: Color normal, no rash, warm, dry, intact. EXTREMITIES: Normal appearance, no pedal edema. NEURO: Oriented x4. PSYCH: Normal affect. Const Vital Signs: 10/01/22 16:25 10/01/22 16:31 Temperature 98.2 F Temperature Source Temporal Pulse Rate 90 Respiratory Rate 16 Respiratory Effort Normal Non-Labored Respiratory Pattern Normal Blood Pressure 153/99 H Blood Pressure Mean 117 Pulse Ox 98 Oxygen Delivery Method Room Air <Dr. Tete Raines DO - Last Filed: 11/27/22 08:26> Physical Exam Const Vital Signs: 10/01/22 16:25 10/01/22 16:31 Temperature 98.2 F Temperature Source Temporal Pulse Rate 90 Respiratory Rate 16 Respiratory Effort Normal Non-Labored Respiratory Pattern Normal Blood Pressure 153/99 H Blood Pressure Mean 117 Pulse Ox 98 Oxygen Delivery Method Room Air MDM <TINA Jeter - Last Filed: 10/01/22 17:36> MDM MDM Narrative Medical decision making narrative: Patient had a mechanical fall with closed head injury last night. There was no loss of consciousness. She is on Eliquis. She appears well and nontoxic with GCS 15. Vital signs stable. She has swelling and tenderness of the bridge of the nose with no deformity. No nasal septal hematoma. There is slight bruising under the left eye. No other signs of basilar skull fracture and she is neurologically intact. CT the brain and facial bones were ordered. She has no midline spinal tenderness so no need for cervical imaging. CT brain shows no acute findings. CT of the facial bones shows slightly displaced nasal fracture. Patient is comfortable taking Tylenol for pain and was given an ENT referral. All questions were answered and she was discharged in stable condition. Differential: Closed head injury, facial bone fracture, intracranial hemorrhage I have personally performed a face to face assessment of the patient and have reviewed the DESTINEE Note. I performed a substantive portion of the visit including all aspects of the following. My adorno findings include: History is [patient presents with a fall that occurred last evening. Patient states that she got up to use the restroom and she is not sure if she tripped or what happened but fell on her face. Denies loss of consciousness. She had bleeding from her nose. She is up-to-date on tetanus. She denies any neck pain or paresthesias. Denies any other significant injuries although she did bump her right knee but she has been up and walking. Patient is on Eliquis for history of factor V Leiden and history of DVTs.] Exam is [HEENT-PERRLA, EOMI. Cranial nerves II through XII grossly intact. TMs clear. Mucous membranes moist. No adenopathy. Patient has superficial well approximated and healing laceration over the bridge of the nose. She has tenderness over the bridge of the nose. No septal hematoma noted. Patient has small area of ecchymosis left inferior orbit with some mild tenderness over the inferior orbital wall. No entrapment of extraocular muscles noted. Cardiovascular-regular rate and rhythm without murmur or ectopy Lungs-clear to auscultation, chest wall stable without crepitus or subcu emphysema Abdomen-normoactive bowel sounds, soft, nontender, no rebound or rigidity, no peritoneal signs. Extremities-intact ?4, normal range of motion, normal pulses, atraumatic] Medical Decison Making [patient had a head CT that was unremarkable. Patient had CT facial bones that showed a mildly displaced nasal bone fracture. Patient will be referred to ENT for follow-up. She is up-to-date on tetanus. Discharged home stable condition.] Other additions or changes: [None] Radiography Diagnostic Testing: Clinical Impression(s) from Imaging Studies Brain CT 10/01/22 16:35 IMPRESSION: Negative head/brain CT without intravenous contrast. Electronically Signed: Barry Kyle MD at 17:27 EDT , ADDENDUM: 10/01/22 1736 IMPRESSION: undefined Facial/Sinus 10/01/22 16:35 IMPRESSION: Slightly displaced nasal bone fracture. Electronically Signed: Barry Kyle MD at 17:29 EDT , <Dr. Tete Raines, DO - Last Filed: 11/27/22 08:26> [facility] MDM Narrative Medical decision making narrative: Patient had a mechanical fall with closed head injury last night. There was no loss of consciousness. She is on Eliquis. She appears well and nontoxic with GCS 15. Vital signs stable. She has swelling and tenderness of the bridge of the nose with no deformity. No nasal septal hematoma. There is slight bruising under the left eye. No other signs of basilar skull fracture and she is neurologically intact. CT the brain and facial bones were ordered. She has no midline spinal tenderness so no need for cervical imaging. I have personally performed a face to face assessment of the patient and have reviewed the DESTINEE Note. I performed a substantive portion of the visit including all aspects of the following. My adorno findings include: History is [patient presents with a fall that occurred last evening. Patient states that she got up to use the restroom and she is not sure if she tripped or what happened but fell on her face. Denies loss of consciousness. She had bleeding from her nose. She is up-to-date on tetanus. She denies any neck pain or paresthesias. Denies any other significant injuries although she did bump her right knee but she has been up and walking. Patient is on Eliquis for history of factor V Leiden and history of DVTs.] Exam is [HEENT-PERRLA, EOMI. Cranial nerves II through XII grossly intact. TMs clear. Mucous membranes moist. No adenopathy. Patient has superficial well approximated and healing laceration over the bridge of the nose. She has tenderness over the bridge of the nose. No septal hematoma noted. Patient has small area of ecchymosis left inferior orbit with some mild tenderness over the inferior orbital wall. No entrapment of extraocular muscles noted. Cardiovascular-regular rate and rhythm without murmur or ectopy Lungs-clear to auscultation, chest wall stable without crepitus or subcu emphysema Abdomen-normoactive bowel sounds, soft, nontender, no rebound or rigidity, no peritoneal signs. Extremities-intact ?4, normal range of motion, normal pulses, atraumatic] Medical Decison Making [patient had a head CT that was unremarkable. Patient had CT facial bones that showed a mildly displaced nasal bone fracture. Patient will be referred to ENT for follow-up. She is up-to-date on tetanus. Discharged home stable condition.] Other additions or changes: [None] Radiography Diagnostic Testing: Clinical Impression(s) from Imaging Studies Brain CT 10/01/22 16:35 IMPRESSION: Negative head/brain CT without intravenous contrast. Electronically Signed: Barry Kyle MD at 17:27 EDT , ADDENDUM: 10/01/22 1736 IMPRESSION: undefined Facial/Sinus 10/01/22 16:35 IMPRESSION: Slightly displaced nasal bone fracture. Electronically Signed: Barry Kyle MD at 17:29 EDT , Discharge Plan Triage Chief Complaint: Fall ED Midlevel Provider: Marli Simpson ED Provider: Tete Raines Dx/Rx/DC Orders Clinical Impression: Closed displaced fracture of nasal bone, Head injury Instructions: ED Facial Fracture Prescriptions: No Action estradiol 2 mg tablet 2 mg PO DAILY Qty: 30 12RF azithromycin 250 mg tablet See Rx Instructions PO .COMPLEX Qty: 6 0RF Rx Instructions: take 500 mg today (day 1), then 250 mg for 4 days (days 2-5) PO atorvastatin 10 MG tablet 5 mg PO QHS fluoxetine 10 MG capsule 10 mg PO DAILY metformin 500 mg Tablet 500 mg PO DAILY omeprazole 40 mg Capsule,Delayed Release(Dr/Ec) 20 mg PO BID dextroamphetamine-amphetamine [Adderall] 5 mg Tablet 5 mg PO DAILY levothyroxine 88 mcg Capsule 88 mcg PO DAILY Rx Instructions: 75mg, Sat and Sun B12 5,000-100 mcg Lozenge SUBLINGUAL Primary Care Provider: Marli Weiss Referrals: Ricky Ray MD [Med Staff - Courtesy Staff] - Marli Weiss DO [Primary Care Provider] - Activity Restrictions/Additional Instructions: There is a slightly displaced nasal bone fracture so I recommend you follow up with ENT. Take tylenol as needed for pain. Disposition Disposition: Home, Self Care Discharge Date/Time: 10/01/22 17:44
== END 2022-10-01 17:44 | disposition home or self-care (01) ==
PROVIDERS: Emergency Provider Emergency Medicine; PCP Family Medicine; Visit Provider Emergency Medicine
DX: S02.2XXA Fracture of nasal bones, initial encounter for closed fracture (principal); D68.51 Activated protein C resistance; S05.12XA Contusion of eyeball and orbital tissues, left eye, initial encounter; W01.198A Fall on same level from slipping, tripping and stumbling with subsequent striking against other object, initial encounter; Y93.89 Activity, other specified; E03.9 Hypothyroidism, unspecified; Z79.01 Long term (current) use of anticoagulants; Z79.899 Other long term (current) drug therapy; Z87.891 Personal history of nicotine dependence; Z86.718 Personal history of other venous thrombosis and embolism
CPT/HCPCS: 70450; 70486; 99282

== ENCOUNTER → 2022-10-12 | Outpatient (CLI) | payer OTHER, SELFPAY ==
--- NOTE | 2022-10-12 14:35 | CT_ITS ---
EXAM: CT ABDOMEN AND PELVIS WITH INTRAVENOUS CONTRAST CLINICAL INDICATION: NAUSEA/BLOATING/PAIN TECHNIQUE: Helically acquired images were obtained of the abdomen and pelvis with intravenous contrast. This CT exam was performed using one or more of the following dose reduction techniques: automated exposure control, adjustment of the mA and/or kV according to patient size, and/or use of iterative reconstruction technique. CONTRAST: Oral and amp;amp; IV Readi-CAT and amp;amp; 100mL Isovue-300 COMPARISON: No relevant prior studies available. FINDINGS: LOWER THORAX: Unremarkable. Lung bases are clear. No cardiomegaly. No significant pericardial effusion. ABDOMEN: LIVER: Unremarkable. Homogeneous. No focal mass. GALLBLADDER AND BILE DUCTS: Unremarkable. No calcified gallstones. No gallbladder distention or wall edema. No intra- or extrahepatic biliary ductal dilation. PANCREAS: Unremarkable. No focal cystic or solid mass. SPLEEN: Unremarkable. Normal size without focal cystic or solid mass. ADRENALS: Unremarkable. No nodules. KIDNEYS AND URETERS: Unremarkable. Normal renal size and position. No hydronephrosis. STOMACH AND BOWEL: Unremarkable. No stomach or bowel distention. No focal inflammatory change. PELVIS: APPENDIX: No evidence of acute appendicitis. BLADDER: Unremarkable. REPRODUCTIVE: Patient is status post hysterectomy. ABDOMEN and PELVIS: INTRAPERITONEAL SPACE: Unremarkable. No ascites or other fluid collection. No free air. BONES/JOINTS: Unremarkable. No suspicious lytic or blastic abnormality. SOFT TISSUES: Unremarkable. No discrete abdominal or pelvic wall hernia. VASCULATURE: Unremarkable. Abdominal aorta is non-dilated. LYMPH NODES: Unremarkable. No enlarged lymph nodes. CT/Abdomen/Pelvis WITH Contrast IMPRESSION: No acute findings in the abdomen or pelvis. Electronically Signed: Emir Benjamin MD at 23:08 EDT ,
== END | disposition home or self-care (01) ==
LOC: CT 14:35
PROVIDERS: PCP Family Medicine; Referring Provider Family Medicine; Visit Provider Family Medicine
DX: R11.0 Nausea (principal); R10.9 Unspecified abdominal pain; R14.0 Abdominal distension (gaseous)
CPT/HCPCS: 74177; Q9967

== ENCOUNTER → 2022-10-25 | Outpatient (CLI) | payer OTHER, SELFPAY ==
--- NOTE | 2022-10-25 16:26 | BI_ITS ---
MAMMOGRAPHY - BILATERAL SCREENING REASON FOR EXAM: Female, 57 years old. Routine annual screening examination. PERTINENT HISTORY: Non-contributory. TECHNIQUE: Digital bilateral breast jn (3D mammographic acquisition) in the CC and MLO projections. 2-D mediolateral oblique (MLO) and craniocaudad (CC) views of both breasts were obtained. CAD: Full Field Digital Mammography with Computer Added Detection was performed. COMPARISON: Comparison is made with prior study October 14, 2021 and October 13, 2020. FINDINGS: Breast Composition: There are scattered areas of fibroglandular density. Slight increase in size of the well-defined nodule in the upper lateral aspect of the right breast. It presently measures 7.1 mm x 10 mm. Correlation with ultrasound is recommended. No other significant abnormalities are identified. BI/SCRN MAMM (CAD)W/JN BILAT IMPRESSION: Slight increase in size of the well-defined nodule in the upper lateral aspect of the right breast as described. Correlation with ultrasound is recommended. ASSESSMENT CATEGORY: BIRADS Category 0: Incomplete. Need additional imaging evaluation. A letter regarding these results will be sent to the patient by the facility within 30 days. Approximately 10% of breast cancers are not detected by mammography. A normal mammogram should not delay biopsy of a clinically suspicious abnormality. [id number] Electronically Signed: Jesus Chu MD at 10:56 EDT ,
== END | disposition home or self-care (01) ==
LOC: OPBI 16:25
PROVIDERS: PCP Family Medicine; Referring Provider Advanced Practice Midwife; Visit Provider Advanced Practice Midwife
DX: Z12.31 Encounter for screening mammogram for malignant neoplasm of breast (principal)
CPT/HCPCS: 77063; 77067

== ENCOUNTER → 2022-10-27 | Outpatient (CLI) | payer OTHER, SELFPAY ==
--- NOTE | 2022-10-27 14:04 | US_ITS ---
STUDY: ULTRASOUND BREAST - RIGHT REASON FOR EXAM: Female, 57 years old. Abnormal screening mammogram. TECHNIQUE: Axial and longitudinal images of the RIGHT breast were performed with a high resolution ultrasound transducer. # OF IMAGES: 47 COMPARISON: Comparison is made with prior mammogram dated October 25, 2022. FINDINGS: RIGHT Breast: The mammographic abnormality corresponds to a 6 mm x 7 mm x 7 mm hypoechoic nodule at the 10:00 position of the breast at 9 cm from nipple. This is not a typical cyst. Biopsy is recommended. US/Breast Limited Unilateral IMPRESSION: 6 mm x 7 mm x 7 mm hypoechoic nodule 10:00 position breast at 9 cm from the nipple. Tissue diagnosis is recommended. ASSESSMENT CATEGORY: BIRADS Category 4: Suspicious - Biopsy Should Be Considered. A letter regarding these results will be sent to the patient by the facility within 30 days. Electronically Signed: Jesus Chu MD at 15:36 EDT ,
== END | disposition home or self-care (01) ==
LOC: OPUS 14:03
PROVIDERS: PCP Family Medicine; Referring Provider Advanced Practice Midwife; Visit Provider Advanced Practice Midwife
DX: R92.8 Other abnormal and inconclusive findings on diagnostic imaging of breast (principal)
CPT/HCPCS: 76642

== ENCOUNTER → 2022-11-04 | Outpatient (CLI) | payer OTHER, SELFPAY ==
--- NOTE | 2022-11-04 | BRBX_PTH ---
PATIENT: MARLI LYNN LOC: [facility] U#:[id number] AGE/SX: 57/F ROOM: RE11/04/[address]: Dr. Roseanna Gonsales MD : 1965 BED: DIS: 11/04/2022 SPEC #: [id number] RECD: 11/04/22 13:49 STATUS: JACQUI SRAVANI #: [id number] MIKE: 11/04/22 00:[address]: Roseanna Gonsales DEPT: SURGICAL PATHOLOGY RECD BY: Jessica Taylor ENTERED: 11/08/22 07:04 SP TYPE: BREAST BX OTHR DR: Dr. Marli Weiss DO Tissues: Right breast, NOS Procedures: Surgery Specimen Level IV HEADER OPERATION: Biopsy of right breast nodule PRE-OP DIAGNOSIS: Right breast nodule TISSUE SUBMITTED: Right breast nodule tissue 10 o'clock, 9 cm from nipple MICROSCOPIC DIAGNOSIS Right breast nodule at 10 o'clock, biopsy: Benign lymph node tissue with reactive change. See comment. AM:luis 11/08/2022 COMMENT Immunohistochemistry ([id number]) supports the above diagnosis. MICROSCOPIC DESCRIPTION Slides are reviewed. GROSS DESCRIPTION Received in fixative is one container labeled with the patient's name and designated right breast tissue. The specimen consists of multiple elongated fragments of rodriguez-yellow fibroadipose tissue that in aggregate measure 2.0 x 1.5 x 0.1 cm. The entire specimen is submitted in one cassette. / SJ:luis 11/07/2022 TC:5 CPT: 97487
--- NOTE | 2022-11-04 | IMM_PTH ---
PATIENT: MARLI LYNN LOC: [facility] U#:[id number] AGE/SX: 57/F ROOM: RE11/04/[address]: Dr. Roseanna Gonsales MD : 1965 BED: DIS: 11/04/2022 SPEC #: [id number] RECD: 11/08/22 13:27 STATUS: JACQUI REQ #: [id number] MIKE: 11/04/22 00:[address]: Roseanna Gonsales DEPT: IMMUNOHISTOCHEMISTRY RECD BY: Ruthann Nichole ENTERED: 11/08/22 13:28 SP TYPE: IMMUNO OTHR DR: Dr. Marli Weiss DO Tissues: Right breast, NOS Procedures: BCL-2 (add) CD138 (add) CD15 (add) CD20 (add) CD3 (add) CD30 (add) CD45 (add) CD5 (add) CD79A (add) KI-67 (add) Pankeratin (initial) PHYSICIAN & [address] [id number] SPECIMEN INFORMATION: Tissue Source: Right breast nodule at 10 o'clock Clinical Info: Right breast nodule Specimen Number: [id number] CPT code: 49016, 95689 x10 METHODOLOGY: Deparaffinized sections of prefer/formalin-fixed tissue or PAP/DQ stained slides are incubated with monoclonal/polyclonal antibodies/oligonucleotide probes. Localization is made via biotin free immunoperoxidase method. Appropriate controls are performed and reacted as expected. Results on target cell population are indicated in the following table: RESULTS: ANTIBODY / CLONE RESULT AE1-3 (AE1/AE3/PCK26) negative CD3 (PS1) positive CD5 (SP10) positive CD20 (L26) positive CD45 (RP2/18) positive CD79a (11E3) positive CD138 (B-A38) negative CD15 (MMA) negative CD30 (Ko-H2) negative BCL-2 (bcl-2/100/D5) negative Ki-67 (30-9) positive, 10% These tests were developed and their performance characteristics determined by [facility]. They may not have been cleared or approved by the U.S. Food and Drug Administration. The FDA has determined that such clearance or approval is not necessary. The above immunohistochemical/dualISH markers are ordered and reviewed by the Pathologist. INTERPRETATION: Right breast nodule at 10 o'clock, biopsy: Benign lymph node tissue. AM:luis 11/09/2022
== END | disposition home or self-care (01) ==
LOC: LABSPEC 11-07 13:40
PROVIDERS: PCP Family Medicine; Visit Provider Surgery
DX: N63.10 Unspecified lump in the right breast, unspecified quadrant (principal)
CPT/HCPCS: 88305; 88341; 88342

== ENCOUNTER → 2023-02-10 | Outpatient (CLI) | payer OTHER, SELFPAY | END | disposition home or self-care (01) | LOC: MTLAB 07:37 | PROVIDERS: PCP Family Medicine; Referring Provider Family Medicine; Visit Provider Family Medicine | DX: I82.409 Acute embolism and thrombosis of unspecified deep veins of unspecified lower extremity (principal) | CPT/HCPCS: 36415; 81241 ==

== ENCOUNTER 2023-02-21 12:27 | Emergency (ER) | payer OTHER, SELFPAY ==
[2023-02-21 12:29] VITALS: BP 149/101; PULSE 86; RESP 18; TEMP 35.8; O2SAT 95; BMI 42.8
--- NOTE | 2023-02-21 12:34 | VDLE_ITS ---
Reason For Study: Right leg pain RIGHT LEFT GSV is normal. CFV is compressible, spontaneous, phasic, CFV is compressible, spontaneous, phasic, competent, and demonstrates normal competent and demonstrates normal augmentation. augmentation. FV is compressible, spontaneous, phasic, competent and demonstrates normal augmentation. POP V is compressible, spontaneous, phasic, competent and demonstrates normal augmentation. T/P Trunk is compressible. PTV is compressible. Acute deep vein thrombosis is noted in the Per V. It is dilated and NONCOMPRESSIBLE. Procedure This is a venous duplex using B-mode, color flow and spectral Doppler. Exam performed in department. A preliminary report was called and/or faxed to ED. VL/Venous Duplex US, Unilateral Interpretation Summary Acute deep vein thrombosis is noted in the right peroneal vein. The right great saphenous vein appears patent and compressible segmentally. Ordering Physician: Frank Tamayo Referring Physician: Marli Weiss Performed By: Luz Santamaria RVT
--- NOTE | 2023-02-21 14:40 | EX.ED.DYSGE1 ---
HPI <IVA Gaona - Last Filed: 02/21/23 14:52> History of Present Illness Chief Complaint: Lower Extremity Injury Narrative Narrative: Patient is a 57-year-old female with history of DVTs, pulmonary embolus who is currently not on any anticoagulation medicine. Patient has history of hyperlipidemia, GERD as well as anxiety depression. Patient does still take estradiol. Presenting to the emerged department with 2 to 3 days of right lower leg pain. She has had history of this. She is concerned for a blood clot. She denies any chest pain, she denies any difficulty breathing. She states she does have difficult time with anticoagulation medicine secondary to rash and itching. [facility] <IVA Gaona - Last Filed: 02/21/23 14:52> [facility] Medical History Depression History of fibula fracture Hypothyroid Home Medications atorvastatin 10 mg tablet 5 mg PO QHS 10/03/14 [History Last Taken Unknown] fluoxetine 10 mg capsule 10 mg PO DAILY 10/03/14 [History Last Taken Unknown] cyanocobalamin (B12)-cobamamide 5,000 mcg-100 mcg sublingual lozenge (B12) suze sublingual 07/08/22 [History Last Taken Unknown] dextroamphetamine-amphetamine 5 mg tablet (Adderall) 5 mg PO DAILY 07/08/22 [History Last Taken Unknown] levothyroxine 88 mcg capsule 88 mcg PO DAILY 07/08/22 [History Last Taken Unknown] metformin 500 mg tablet 500 mg PO DAILY 07/08/22 [History Last Taken Unknown] omeprazole 40 mg capsule,delayed release 20 mg PO BID 07/08/22 [History Last Taken Unknown] estradiol 2 mg tablet 2 mg PO DAILY #30 tabs 09/23/22 [Rx Last Taken Unknown] azithromycin 250 mg tablet See Rx Instructions PO .COMPLEX #6 tabs 11/16/22 [Rx Last Taken Unknown] apixaban 5 mg (74 tabs) tablets in a dose pack (Eliquis DVT-PE Treat 30D Start) 5 mg PO BID #74 tabs 02/21/23 [Rx Last Taken Unknown] Allergy/AdvReac Type Severity Reaction Status Date / Time apixaban [From Eliquis] Allergy Rash Verified 02/21/23 12:28 rivaroxaban [From Xarelto] Allergy Rash Verified 02/21/23 12:28 Surgical History History of elbow surgery History of hysterectomy Social History Smoking Status: Former smoker ROS <IVA Gaona - Last Filed: 02/21/23 14:52> ROS ED ROS Narrative Constitutional: Negative for fever, chills, weight loss, weakness Eyes: Negative for vision loss, vision change, double vision ENT: Negative for any sore throat, ear pain, congestion Cardiovascular: Negative for any chest pain, tightness, palpitations Respiratory: Negative for any cough, sputum production, hemoptysis, dyspnea, dyspnea on exertion, orthopnea Gastrointestinal: Negative for any abdominal pain, nausea, vomiting, diarrhea, constipation, blood in stool, blood in vomit : Negative for any urinary frequency, dysuria, retention, blood in urine Muscle skeletal: Negative for any myalgias, arthralgias, neck pain, back pain. Positive for right leg pain Neurological: Negative for any headache, syncope, paresthesias, dizziness Skin: Negative for any rashes, lumps, itching, abrasions, lacerations Psychiatric: Negative for any depression, anxiety, stress, suicidal ideation, homicidal ideation Hematologic: Negative for any easy bruising, excessive bruising, easy bleeding Allergies: Negative for any eczema, hives, rash EXAM <IVA Gaona - Last Filed: 02/21/23 14:52> Physical Exam Narrative Exam Narrative: Vital signs reviewed. H Extremities: No peripheral edema, no signs of gross trauma or deformity. Active full range of motion of all extremities. Patient does have some area of erythema to the posterior right lower extremity. Patient has +2 pedal pulse. Neuro: Cranial nerves II through XII intact, no focal neurological deficits. Skin: Clean dry and intact with no rash, purpura, petechiae, vesicles or pustules. Backs/flank: No CVA tenderness, no midline spinal tenderness, no deformity. Psych: Normal mood and affect. No SI, HI or acute psychosis. Const Vital Signs: 02/21/23 12:29 Temperature 96.5 F L Temperature Source Temporal Pulse Rate 86 Respiratory Rate 18 Blood Pressure 149/101 H Blood Pressure Mean 117 Pulse Ox 95 Oxygen Delivery Method Room Air <Dr. Armando Woods MD - Last Filed: 02/21/23 15:02> Physical Exam Const Vital Signs: 02/21/23 12:29 Temperature 96.5 F L Temperature Source Temporal Pulse Rate 86 Respiratory Rate 18 Blood Pressure 149/101 H Blood Pressure Mean 117 Pulse Ox 95 Oxygen Delivery Method Room Air [facility] <Malik DonahueIVA - Last Filed: 02/21/23 14:52> [facility] Treatment and Re-Evaluation :: Patient appears generally well, patient appears nontoxic, vital signs are stable. Presenting to the emergency department with complaints of right lower leg pain concern for DVT. Patient did receive a venous duplex which was positive for a DVT to the right popliteal vein. Patient has been on multiple agents for DVT, PE such as Eliquis, Xarelto, Coumadin, states that after she is on these for some time she have a rash. She does see a harness fitter. At this time, patient be started on Eliquis starter pack. She will need to follow-up with her PCP as well as her harness fitter. She instructed return for any worsening chest pain, shortness of breath. All questions were answered, she instructed return for any worsening symptoms. <Dr. Armando Woods MD - Last Filed: 02/21/23 15:02> [facility] Narrative Medical decision making narrative: I have personally performed a face to face assessment of the patient and have reviewed the DESTINEE Note. I performed a substantive portion of the visit including all aspects of the following. My adorno findings include: History is 57-year-old female history of DVT and PEs due to factor V Leiden. Has a reaction to most of the blood thinners where she develops a rash. She has seen dermatology for this. They recently took her off her blood thinner to give a trial. She has now developed another DVT behind her right knee. She has had pain over the last day or so. No chest pain or shortness of breath. Exam is [well appearing middle-aged female. Vital signs stable afebrile. No distress. H EENT exam unremarkable. Lungs clear. Heart regular rhythm no murmur. Abdomen soft nontender. Moving all 4 extremities. She does have trace edema both lower extremities. No calf tenderness. Normal range of motion. She is awake and alert. Medical Decision Making [noninvasive study right leg shows a DVT in the right peroneal vein. She will be restarted on Eliquis or she may choose because she has Pradaxa at home. And to follow-up with her primary care physician.] Other additions or changes: [None] Discharge Plan Triage Chief Complaint: Lower Extremity Injury ED Midlevel Provider: Malik Donahue ED Provider: Armando Woods Dx/Rx/DC Orders Clinical Impression: DVT (deep venous thrombosis) Instructions: DVT Complications, DVT Post Op Prevention, ED Deep Vein Thrombosis (DVT) Prescriptions: New Eliquis DVT-PE Treat 30D Start 5 mg (74 tabs) tablets,dose pack 5 mg PO BID Qty: 74 0RF Rx Instructions: We will take 2 tablets twice a day for 7 days, then 1 tab twice a day thereafter No Action estradiol 2 mg tablet 2 mg PO DAILY Qty: 30 12RF azithromycin 250 mg tablet See Rx Instructions PO .COMPLEX Qty: 6 0RF Rx Instructions: take 500 mg today (day 1), then 250 mg for 4 days (days 2-5) PO atorvastatin 10 MG tablet 5 mg PO QHS fluoxetine 10 MG capsule 10 mg PO DAILY metformin 500 mg Tablet 500 mg PO DAILY omeprazole 40 mg Capsule,Delayed Release(Dr/Ec) 20 mg PO BID dextroamphetamine-amphetamine [Adderall] 5 mg Tablet 5 mg PO DAILY levothyroxine 88 mcg Capsule 88 mcg PO DAILY Rx Instructions: 75mg, Sat and Sun B12 5,000-100 mcg Lozenge SUBLINGUAL Primary Care Provider: Marli Weiss Referrals: Marli Weiss DO [Primary Care Provider] - Activity Restrictions/Additional Instructions: You need to contact your primary care physician as well as your team manager/harness fitter. You need to have serial ultrasounds to ensure that your DVT is shrinking. Please return for any chest pain or shortness of breath. You have a right popliteal DVT. Disposition Disposition: Home, Self Care
== END 2023-02-21 15:09 | disposition home or self-care (01) ==
LOC: ED 15:00
PROVIDERS: Emergency Provider Emergency Medicine; PCP Family Medicine; Visit Provider Emergency Medicine
DX: I82.451 Acute embolism and thrombosis of right peroneal vein (principal); E78.5 Hyperlipidemia, unspecified; Z87.891 Personal history of nicotine dependence; F32.A Depression, unspecified; E03.9 Hypothyroidism, unspecified; Z79.899 Other long term (current) drug therapy; K21.9 Gastro-esophageal reflux disease without esophagitis; Z90.710 Acquired absence of both cervix and uterus
CPT/HCPCS: 93971; 99282

== ENCOUNTER → 2023-04-05 | Outpatient (CLI) | payer OTHER, SELFPAY ==
--- OUTSIDE RECORDS SUMMARY | 2023-04-05 07:48 | XMS RPT_ITS | CCD ---
Author Name Unknown Address [id number] [place] [address] Organization [facility] Care Team Providers Care Dope Mixer Name Role Phone NESTOR CARSON Unavailable Unavailable SUDHAKAR, PETER Unavailable Unavailable REQUEST, NONE LISTED Unavailable Unavailable LAMONTEANDER, PETER Unavailable Unavailable HIGHLANDER, PETER Unavailable Unavailable HIGHLANDER, PETER Unavailable Unavailable REQUEST, NONE LISTED Unavailable Unavailable SHANI GUTIERREZ V Unavailable Unavailable HIGHLANDER, NESTOR Unavailable Unavailable AGNICKOLAS MALIK Unavailable Unavailable HIGHLANDER, PETER Unavailable Unavailable HIGHLANDER, PETER Unavailable Unavailable HIGHLANDER, PETER Unavailable Unavailable Malys DO, Marli Primary Care Provider [phone] No, Physician Primary Care Provider Unavailabl e Henrique Pham DO Unavailable Malys DO, Marli A Primary Care Provider [phone] Malys DO, Marli A Primary Care Provider Ruth Ortega MD Unavailable Henrique Pham DO Unavailable Malys DO, Marli A Primary Care Provider KOLLURI, JOSE Admitting Unavailable KOLLURI, JOSE Attending Unavailable MALYS, MARLI A Primary Care Unavailable MALYS, MARLI A Primary Care Unavailable TATY, JOSE Attending Unavailable HENRIQUE PHAM Admitting Unavailable HENRIQUE PHAM Referring Unavailable JOHN MASSEY Attending Unavailabl e HENRIQUE PHAM Referring Unavailable MALYS, MARLI Primary Care Unavailable JOSE GARCIA Referring Unavailable HENRIQUE PHAM Attending Unavailable MALYS, MARLI Primary Care Unavailable MALYS, MARLI Primary Care Unavailable MALYS, MARLI Primary Care Unavailable MALYS, MARLI Primary Care Unavailable CRAMERTERRA Admitting Unavailable CRAMER, TERRA JAIN Attending Unavailable MALYS, MARLI A Primary Care Unavailable KOLLURI, JOSE Attending Unavailable MALYS, MARLI A Primary Care Unavailable KOLLURI, JOSE Attending Unavailable KOLLURI, JOSE Referring Unavailable MALYS, MARLI A Primary Care Unavailable KOLLURI, JOSE Admitting Unavailable KOLLURI, JOSE Attending Unavailable MALYS, MARLI A Primary Care Unavailable KOLLURI, JOSE Attending Unavailable KOLLURI, JOSE Referring Unavailable MALYS, MARLI A Primary Care Unavailable Malys DO, Marli A Primary Care Provider [phone] Ruth Ortega MD Unavailable MALYS, MARLI A Primary Care Unavailable MALYS, MARLI A Primary Care Unavailable ATHY, DERRICK R Referring Unavailable MALYS, MARLI A Primary Care Unavailable MALYS, MARLI A Primary Care Unavailable Allergies Allergy Classification Reported Allergen(s) Allergy Type Date of Onset Reaction(s) Facility (8 sources) Other; Translations: [OTHER] Propensity to adverse reactions 2 Other (See Comments) [facility] Medications Current Medications Medication Drug Class(es) Dates Sig (Normalized) Sig (Original) atorvastatin 10 mg oral tablet (17 sources) HMG-CoA Reductase Inhibitor Start: 12-04-2018 take 1 tablet by mouth once daily atorvastatin (LIPITOR) 10 MG tablet Take 1 (one) tablet (10 mg total) by mouth daily . 0 12/04/2018 Active Completed/Discontinued Medications Medication Drug Class(es) Dates Sig (Normalized) Sig (Original) acetaminophen 500 mg oral tablet (10 sources) Start: 10-01-2012 take 2 tablets by mouth every six hours as needed acetaminophen 500 mg tablet Take 2 tablets by mouth every 6 hours as needed. 0 10/01/2012 Active Problems Active Problems Problem Classification Problem Date Documented Date Episodic/Chronic Disorders of lipid metabolism (4 sources) Hypercholesterolemia ; Translations: [Pure hypercholesterolemia , unspecified] 10-26-2012 Chronic Esophageal disorders (12 sources) Gastro-esophageal reflux disease without esophagitis; Translations: [Gastroesophageal reflux disease] Onset: 02-12-2014 Resolved: 08-13-2021 08-13-2021 Chronic Mood disorders (11 sources) Depressive disorder; Translations: [Depressive disorder] Onset: 08-13-2021 Resolved: 08-13-2021 08-13-2021 Chronic Other aftercare (1 source) intermediate (current) use of anticoagulants; Translations: [OFFICE MACHINES 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 USE ANTICOAGULANTS] Onset: 10-20-2017 Episodic Other aftercare (1 source) Long-term current use of anticoagulant; Translations: [intermediate manager (current) use of anticoagulants] 10-01-2022 Episodic Other connective tissue disease (5 sources) Plantar fascial fibromatosis; Translations: [PLANTAR FASCIAL FIBROMATOSIS] Onset: 10-05-2017 Episodic Other connective tissue disease (10 sources) Swelling of lower limb; Translations: [Other specified soft tissue disorders] Onset: 08-16-2021 Episodic Other diseases of veins and lymphatics (16 sources) Lymphedema; Translations: [Lymphedema, not elsewhere classified] Onset: 08-16-2021 Chronic Other diseases of veins and lymphatics (4 sources) Lymphedema, not elsewhere classified; Translations: [Lymphedema, not elsewhere classified] Onset: 08-16-2021 Chronic Other diseases of veins and lymphatics (14 sources) Peripheral venous insufficiency; Translations: [Venous insufficiency (chronic) (peripheral)] Onset: 10-19-2021 Episodic Other diseases of veins and lymphatics (11 sources) Stasis dermatitis; Translations: [Venous insufficiency (chronic) (peripheral)] Onset: 08-16-2021 Episodic Other diseases of veins and lymphatics (6 sources) Venous insufficiency (chronic) (peripheral); Translations: [Venous insufficiency (chronic) (peripheral)] Onset: 08-17-2021 Episodic Other inflammatory condition of skin (12 sources) Itching of skin; Translations: [Pruritus, unspecified] Onset: 01-14-2022 Episodic Other inflammatory condition of skin (1 source) Pruritus of skin; Translations: [Pruritus, unspecified] Episodic Other injuries and conditions due to external causes (1 source) Closed injury of head; Translations: [Unspecified injury of head, initial encounter] 10-01-2022 Episodic Other nutritional; endocrine; and metabolic disorders (4 sources) Body mass index 40+ - severely obese; Translations: [Morbid (severe) obesity due to excess calories] Onset: 10-19-2021 10-19-2021 Chronic Other nutritional; endocrine; and metabolic disorders (4 sources) Morbid obesity; Translations: [Morbid (severe) obesity due to excess calories] 05-01-2017 Chronic Other upper respiratory infections (2 sources) Chronic sinusitis; Translations: [Chronic sinusitis, unspecified] Onset: 05-16-2022 Chronic Residual codes; unclassified (4 sources) Obstructive sleep apnea syndrome; Translations: [Obstructive sleep apnea (adult) (pediatric)] 11-20-2013 Chronic Residual codes; unclassified (1 source) Lipedema; Translations: [Edema, unspecified] Episodic Screening or history of mental health and substance abuse (1 source) Personal history of nicotine dependence; Translations: [PERSONAL HISTORY OF NICOTINE DEPEND] Onset: 10-20-2017 Episodic Unclassified (1 source) Sleep apnea, unspecified; Translations: [SLEEP APNEA UNSPECIFIED] Onset: 10-20-2017 Varicose veins of lower extremity (16 sources) Varicose veins of lower extremity; Translations: [Varicose veins of bilateral lower extremities with other complications] Onset: 10-19-2021 Episodic Viral infection (2 sources) Viral disease; Translations: [Viral infection, unspecified] Episodic Viral infection (1 source) COVID-19; Translations: [COVID-19] Onset: 05-16-2022 Past or Other Problems Problem Classification Problem Date Documented Da te Episodic/Chronic Chronic obstructive pulmonary disease and bronchiectasis (1 source) Bronchitis, not specified as acute or chronic; Translations: [Sinobronchitis] Onset: 05-16-2022 Episodic Complication of device; implant or graft (5 sources) Pain due to internal orthopedic prosthetic devices, implants and grafts, initial encounter; Translations: [Pain] Onset: 03-28-2017 03-28-2017 Episodic Complications of surgical procedures or medical care (3 sources) Drug therapy finding; Translations: [Unspecified adverse effect of drug or medicament, initial encounter] Onset: 10-19-2021 Episodic Conditions associated with dizziness or vertigo (4 sources) Vertigo of central origin; Translations: [Vertigo of central origin] Onset: 12-21-2011 12-21-2011 Episodic E Codes: Adverse effects of medical drugs (3 sources) Proton pump inhibitor adverse reaction; Translations: [Adverse effect of other antacids and bjiy-tjlvisw-vomy etion drugs, initial encounter] Onset: 10-19-2021 Episodic Other connective tissue disease (4 sources) Other specified soft tissue disorders; Translations: [Other specified soft tissue disorders] Onset: 08-16-2021 Episodic Other inflammatory condition of skin (4 sources) Pruritus, unspecified; Translations: [Pruritus, unspecified] Onset: 10-19-2021 Episodic Phlebitis; thrombophlebitis and thromboembolism (5 sources) Personal history of other venous thrombosis and embolism; Translations: [H/O: Deep vein thrombosis] Onset: 10-29-2012 02-22-2021 Episodic Results Test Name Value Interpretation Reference Range Facil ity Vital Signs Date Time Vital Sign Value Performing Clinician Faci lity 05-15-2022 10:43-0400 Body temperature 97.5 [degF] Derrick Athy PA-C Work Phone: [facility] 05-15-2022 10:43-0400 Body weight 118.93 kg Derrick Athy PA-C Work Phone: [facility] 05-15-2022 10:43-0400 Diastolic blood pressure 86 mm[Hg] Derrick Athy PA-C Work Phone: [facility] 05-15-2022 10:43-0400 Heart rate 99 /min Derrick Athy PA-C Work Phone: [facility] 05-15-2022 10:43-0400 Respiratory rate 20 /min Derrick Athy PA-C Work Phone: [facility] 05-15-2022 10:43-0400 SaO2% (BldA) [Mass fraction] 96 % Derrick Athy PA-C Work Phone: [facility] 05-15-2022 10:43-0400 Systolic blood pressure 128 mm[Hg] Derrick Athy PA-C Work Phone: [facility] 04-01-2022 11:43-0500 Body temperature 97.39 [degF] Terra Cramer SENIOR VALIDATION ENGINEER Work Phone: [facility] 04-01-2022 11:43-0500 Diastolic blood pressure 88 mm[Hg] Terra Cramer SENIOR VALIDATION ENGINEER Work Phone: [facility] 04-01-2022 11:43-0500 Heart rate 92 /min Terra Cramer SENIOR VALIDATION ENGINEER Work Phone: [facility] 04-01-2022 11:43-0500 Respiratory rate 18 /min Terra Cramer SENIOR VALIDATION ENGINEER Work Phone: [facility] 04-01-2022 11:43-0500 Systolic blood pressure 138 mm[Hg] Terra Cramer SENIOR VALIDATION ENGINEER Work Phone: [facility] 01-14-2022 09:29-0500 Diastolic blood pressure 86 mm[Hg] Jose Ho MD Work Phone: [facility] 01-14-2022 09:29-0500 Heart rate 85 /min Jose Ho MD Work Phone: [facility] 01-14-2022 09:29-0500 Systolic blood pressure 149 mm[Hg] Jose Ho MD Work Phone: [facility] 01-14-2022 09:28-0500 Body height 167.6 cm Jose Ho MD Work Phone: [facility] 01-14-2022 09:28-0500 Body mass index (BMI) [Ratio] 42.93 kg/m2 Jose Ho MD Work Phone: [facility] 01-14-2022 09:28-0500 Body weight 120.66 kg Jose Ho MD Work Phone: [facility] 12-05-2021 10:45-0400 Body temperature 98.49 [degF] Feliciano Lambert PERSONNEL COUNSELOR.SENIOR VALIDATION ENGINEER Work Phone: [facility] 12-05-2021 10:45-0400 Body weight 122.47 kg Feliciano Lambert PERSONNEL COUNSELOR.SENIOR VALIDATION ENGINEER Work Phone: [facility] 12-05-2021 10:45-0400 Diastolic blood pressure 82 mm[Hg] Feliciano Lambert PERSONNEL COUNSELOR.SENIOR VALIDATION ENGINEER Work Phone: [facility] 12-05-2021 10:45-0400 Heart rate 100 /min Feliciano Lambert PERSONNEL COUNSELOR.SENIOR VALIDATION ENGINEER Work Phone: [facility] 12-05-2021 10:45-0400 Respiratory rate 18 /min Feliciano Lambert PERSONNEL COUNSELOR.SENIOR VALIDATION ENGINEER Work Phone: [facility] 12-05-2021 10:45-0400 SaO2% (BldA) [Mass fraction] 96 % [facility] PERSONNEL COUNSELOR.SENIOR VALIDATION ENGINEER Work Phone: [facility] 12-05-2021 10:45-0400 Systolic blood pressure 132 mm[Hg] Feliciano Lambert PERSONNEL COUNSELOR.SENIOR VALIDATION ENGINEER Work Phone: [facility] 10-19-2021 13:34-0400 Body height 167.6 cm John Massey MD Work Phone: [facility] 10-19-2021 13:34-0400 Body mass index (BMI) [Ratio] 45.52 kg/m2 John Massey MD Work Phone: [facility] 10-19-2021 13:34-0400 Body weight 127.91 kg John Massey MD Work Phone: [facility] 10-19-2021 13:34-0400 Heart rate 102 /min John Massey MD Work Phone: [facility] 10-19-2021 13:34-0400 Respiratory rate 16 /min John Massey MD Work Phone: [facility] 10-19-2021 13:34-0400 SaO2% (BldA) [Mass fraction] 97 % John Massey MD Work Phone: [facility] 10-19-2021 10:15-0400 Diastolic blood pressure 81 mm[Hg] Jose Ho MD Work Phone: [facility] 10-19-2021 10:15-0400 Heart rate 80 /min Jose Ho MD Work Phone: [facility] 10-19-2021 10:15-0400 Systolic blood pressure 143 mm[Hg] Jose Ho MD Work Phone: [facility] 10-19-2021 10:12-0400 Body height 167.6 cm Jose Ho MD Work Phone: [facility] 10-19-2021 10:12-0400 Body mass index (BMI) [Ratio] 43.74 kg/m2 Jose Ho MD Work Phone: [facility] 10-19-2021 10:12-0400 Body weight 122.92 kg Jose Ho MD Work Phone: [facility] 08-17-2021 08:13-0400 Body weight 127.91 kg Henrique Pham DO Work Phone: [facility] 08-17-2021 08:13-0400 Diastolic blood pressure 100 mm[Hg] Henrique Pham DO Work Phone: [facility] 08-17-2021 08:13-0400 Heart rate 73 /min Henrique Pham DO Work Phone: [facility] 08-17-2021 08:13-0400 SaO2% (BldA) [Mass fraction] 96 % Henrique Pham DO Work Phone: [facility] 08-17-2021 08:13-0400 Systolic blood pressure 130 mm[Hg] Henrique Pham DO Work Phone: [facility] Encounters Encounter Date Encounter Type Care Provider Facility Start: 10-01-2022 End: 10-01-2022 ambulatory MARLI A MOJGANYS Facility:[facility] Start: 10-01-2022 End: 10-01-2022 Patient encounter procedure Derrick Pitts PA-C Work Phone: [facility] Procedures Date Procedure Procedure Detail Performing Clinician Start: 01-06-2022 EXTERNAL LAB SCAN Jose Ho MD Work Phone: Start: 08-26-2021 CHROMOGRANIN A (CGA) , MANUAL ENTER Historical Provider Start: 09-04-2014 Mammography Feliciano florence PERSONNEL COUNSELOR.SENIOR VALIDATION ENGINEER Work Phone: Start: 08-01-2014 Colonoscopy Feliciano florence PERSONNEL COUNSELOR.SENIOR VALIDATION ENGINEER Work Phone: Plan of Treatment Date Care Activity Detail Author Start: 08-01-2024 Colonoscopy COLONOSCOPY [facility] Start: 08-01-2024 COLORECTAL CANCER SCREENING COLORECTAL CANCER SCREENING [facility] Start: 04-29-2024 Tetanus vaccination [facility] Start: 04-29-2024 Urine microalbumin profile DTAP,TDAP,TD (2 - Td or Tdap) [facility] Start: 10-28-2022 Influenza vaccination [facility] Start: 05-27-2022 End: 06-29-2022 Ultrasound duplex venous leg left Ultrasound duplex venous leg left Vascular Ultrasound Routine Varicose veins of lower extremities with complications, bilateral Chronic venous insufficiency Expected: 05/27/2022, Expires: 06/29/2022 [facility] Work Phone: Immunizations Immunization Date Immunization Notes Care Provider Fa cility 05-20-2021 zoster vaccine recombinant John Massey MD Work Phone: [facility] 05-20-2021 zoster vaccine, unspecified formulation John Massey MD Work Phone: [facility] 02-12-2021 COVID-19 vaccine, mRNA, Moderna, 50 mcg/0.25 mL booster John Massey MD Work Phone: [facility] 06-11-2020 COVID-19 vaccine, mRNA, Moderna, 100 mcg/0.5 mL John Massey MD Work Phone: [facility] 05-14-2020 COVID-19 vaccine, mRNA, Moderna, 100 mcg/0.5 mL John Massey MD Work Phone: [facility] 04-29-2014 tetanus toxoid, reduced diphtheria toxoid, and acellular pertussis vaccine, adsorbed John Massey MD Work Phone: [facility] 06-26-2013 measles, mumps and rubella virus vaccine John Massey MD Work Phone: [facility] 12-26-2012 influenza virus vaccine, unspecified formulation Andreia Sewell RN [facility] Payers Date Payer Category Payer Private Health Insurance [id number] 2011 Private Health Insurance [id number] 1964 Unknown [id number] 2.16. [id number] 1964 Unknown [id number] 2.16. [id number] 1964 Unknown [id number] 2.16. [id number] 1964 Unknown [id number] 2.16. [id number] 1964 Unknown [id number] 2.16. [id number] 1964 Unknown [id number] 2.16. [id number] 1964 Unknown [id number] 2.16. [id number] 1964 Unknown [id number] 2.16. [id number] 1964 Unknown [id number] 2.16. [id number] 1964 Unknown [id number] 2.16. [id number] 1964 Unknown [id number] 2.16. [id number] 1964 Unknown [id number] 2.16. [id number] 1964 Unknown [id number] 2.16. [id number] 1959 Private Health Insurance [id number] Social History Date Type Detail Facility Start: 08-17-2021 End: 12-05-2021 Tobacco smoking status NHIS Ex-smoker [facility] End: 08-27-2004 History of tobacco use Cigarette Smoker [facility] Start: 1965 Sex Assigned At Not on file [facility] Tobacco smoking status [facility] Tobacco smoking consumption unknown [facility] End: 08-27-2004 History of tobacco use Current smoker [facility] Start: 10-18-2021 End: 12-05-2021 Tobacco use and exposure Smokeless tobacco non-user [facility] Start: 10-19-2021 End: 04-01-2022 Alcohol intake Current drinker of alcohol (finding) [facility] Start: 10-19-2021 End: 05-15-2022 Alcohol intake [facility] Start: 10-09-2021 End: 03-23-2022 Exposure to SARS-CoV-2 (event) Not sure [facility] Start: 12-05-2021 End: 05-15-2022 Alcohol intake Current non-drinker of alcohol (finding) [facility] Start: 04-29-2014 Alcohol Comment cut out daily wine at night 07/2013. Hx of over use. [facility] Start: 05-15-2022 Tobacco use panel [facility] Clinical Notes 09-14-2012 to 10-01-2022 Derrick Pitts PA-C - 10/01/2022 3:07 PM Ilda Pitts PA-C - 05/15/2022 12:04 PM Malou Cramer CNP - 04/01/2022 12:21 PM Jony Buck RN - 04/01/2022 11:38 AM ESTPatient Instructions Note Date & Type Note Facility 10-01-2022 Note HNO ID: [id number] Author: Derrick Pitts PA-C Service: ? Author Type: Physician Alteration Tailor Apprentice Type: Progress Notes Filed: 10/01/2022 3:09 PM Note Text: Presents to express care triage with a chief complaint of head injury. She had fallen landing on her face around 330 this morning. She denies loss of consciousness. She has bruising and swelling of her nose and under her eyes. She is currently on Eliquis. Recommended that she be seen in the emergency department. She will go to [facility] ED. Denies any weakness numbness, severe headache. [facility] 10-01-2022 History of Present illness Narrative Presents to express care triage with a chief complaint of head injury. She had fallen landing on her face around 330 this morning. She denies loss of consciousness. She has bruising and swelling of her nose and under her eyes. She is currently on Eliquis. Recommended that she be seen in the emergency department. She will go to [facility] ED. Denies any weakness numbness, severe headache. documented in this encounter [facility] 05-16-2022 Note HNO ID: [id number] Author: RT Cecilia(Jhon) Service: Nuclear Medicine Author Type: Technologist Type: Progress Notes Filed: 05/16/2022 4:56 PM Note Text: Radiology Service Progress Note PATIENT NAME: Marli Pantoja DATE OF SERVICE: May 16, 2022 TIME: 4:49 PM PATIENT IDENTITY VERIFICATION COMPLETED USING TWO (2) IDENTIFIERS: Name and Date of confirmed by patient verbally. FALL SCREENING: Has the patient had 2 falls in the last year or 1 fall with injury or currently using an Ambulatory Assistive Device (Walker, Cane, Wheelchair, Crutches, etc.)? No PATIENT GENDER DATA: Female. status: : No status: NO. PATIENT RELEVANT IMPLANT DATA REVIEWED: Not Applicable RADIOLOGY DEPARTMENT: General X-ray: Exam(s) Completed: Chest X-Ray PERIPHERAL IV DATA: Not applicable SIGNED BY: RT Cecilia(R) May 16, 2022 4:49 PM [facility] 05-15-2022 Note HNO ID: [id number] Author: Derrick Pitts PA-C Service: ? Author Type: Physician Alteration Tailor Apprentice Type: Progress Notes Filed: 05/15/2022 12:07 PM Note Text: This note was created using [employer]. Subjective Marli Pantoja is a 57 year old female. HPI Patient presents with a chief complaint of cough and wheezing over the past month. She tested positive for COVID on a home test on April 18. She thought she was getting better but then the past 2 or 3 days started wheezing and worsening. No fever. Denies history of asthma. She is not a smoker. She has had chronic sinus congestion with this as well. She has had some mild shortness of breath. No chest pain. Review of Systems Constitutional: Positive for fatigue. Negative for fever. HENT: Positive for congestion, rhinorrhea, sinus pressure and sinus pain. Negative for ear pain and sore throat. Respiratory: Positive for cough, shortness of breath and wheezing. Cardiovascular: Negative. Gastrointestinal: Negative. Genitourinary: Negative. Musculoskeletal: Negative. All other systems reviewed and are negative. PAST MEDICAL HISTORY Diagnosis Date Acid reflux Benign paroxysmal vertigo Depression DVT of lower extremity (deep venous thrombosis) (HCC) 2010 left leg 07/2012 right leg Heart burn High cholesterol Morbid obesity (HCC) Obstructive sleep apnea 2014 Pulmonary embolism (HCC) DVT left leg with PE in 2009 while on OCP Current Outpatient Medications Medication Sig Dispense Refill Omeprazole 20 mg TbEC Take 1 tablet by mouth twice daily. levothyroxine (SYNTHROID) 88 mcg tablet TAKE 1 TABLET BY MOUTH EVERY DAY IN THE MORNING ON EMPTY STOMACH amphetamine-dextroamphetamine XR (ADDERALL XR) 10 mg 24 hr capsule Take 1 capsule by mouth. metFORMIN (GLUCOPHAGE) 500 mg tablet Take 1 tablet by mouth twice daily with meals. estradiol (ESTRACE) 2 mg tablet Take 2 mg by mouth once daily. FLUoxetine (PROZAC) 20 mg capsule TAKE 1 CAPSULE DAILY 90 capsule 3 rivaroxaban (XARELTO) 20 mg tablet Take 1 tablet by mouth daily with dinner. 30 tablet 5 atorvastatin (LIPITOR) 10 mg tablet Take 0.5 tablets by mouth once daily. Indications: 1/2 tab daily 5mg 45 tablet 3 CPAP Initiate CPAP @ 13 cm of water with humidification. Mask (per patient preference) optional chin strap (if indicated) , filters, tubing, humidifier and lifetime supplies. Dx SUKHDEEP 327.23 (Patient taking differently: five times a week. Initiate CPAP @ 13 cm of water with humidification. Mask (per patient preference) optional chin strap (if indicated) , filters, tubing, humidifier and lifetime supplies. Dx SUKHDEEP 327.23) 1 Device 0 predniSONE (DELTASONE) 20 mg tablet Take 2 tablets by mouth once daily for 5 days. 10 tablet 0 benzonatate (TESSALON PERLES) 100 mg capsule Take 2 capsules by mouth three times daily as needed. 30 capsule 0 albuterol HFA (PROAIR HFA) 90 mcg/actuation inhaler Inhale 2 Puffs as instructed every 6 hours as needed. 1 Each 0 doxycycline (VIBRA-TABS) 100 mg tablet Take 1 tablet by mouth twice daily for 7 days. 14 tablet 0 benzonatate (TESSALON PERLES) 100 mg capsule Take 1 capsule by mouth three times daily as needed for cough. 12 capsule 0 famotidine (PEPCID) 20 mg tablet Take 20 mg by mouth twice daily. (Patient not taking: Reported on 12/05/2021) albuterol HFA (PROVENTIL HFA, VENTOLIN HFA) 90 mcg/actuation inhaler Inhale 2 Puffs as instructed. (Patient not taking: Reported on 12/05/2021) acetaminophen 500 mg tablet Take 2 tablets by mouth every 6 hours as needed. No current facility-administered medications for this visit. PAST SURGICAL HISTORY Procedure Laterality Date LAPS SUPRACRV HYSTERECT 250 GM/< RMVL TUBE/OVAR 12/04/2015 Dr. James Rivera PAST SURGICAL HISTORY OF Left 10/03/2014 repair of broken fibula. Dr. Carson UNLISTED ANES PX(S) ~2006 elbow surgery right and right forearm UNLISTED ANES PX(S) June 2009 tubal ligation FAMILY HISTORY Adopted: Yes Problem Relation Age of Onset other (unknown) Other adopted Diabetes Other maternal side other (unknown) Father Heart Mother s/p ablation Cancer Mother ovarian or cervical Asthma Mother COPD Mother Social History Tobacco Use Smoking status: Former Packs/day: 1.50 Years: 22.00 Pack years: 33.00 Types: Cigarettes Quit date: 08/27/2004 Years since quittin.7 Smokeless tobacco: Never Substance Use Topics Alcohol use: No Alcohol/week: 0.0 standard drinks Comment: cut out daily wine at night 07/2013. Hx of over use. Drug use: No Objective BP 128/86 Pulse 99 Temp 36.4 ?C (97.5 ?F) Resp 20 Wt 118.9 kg (262 lb 3.2 oz) LMP 04/29/2013 SpO2 96% BMI 42.32 kg/m? Physical Exam Vitals reviewed. Constitutional: Appearance: Normal appearance. HENT: Head: Normocephalic and atraumatic. Right Ear: Tympanic membrane, ear canal and external ear normal. Left Ear: Tympanic membrane, ear canal and external ear normal. Nose (more content not included)... [facility] 05-15-2022 History of Present illness Narrative This note was created using Apperian. Subjective Marli Pantoja is a 57 year old female. HPI Patient presents with a chief complaint of cough and wheezing over the past month. She tested positive for COVID on a home test on April 18. She thought she was getting better but then the past 2 or 3 days started wheezing and worsening. No fever. Denies history of asthma. She is not a smoker. She has had chronic sinus congestion with this as well. She has had some mild shortness of breath. No chest pain. Review of Systems Constitutional: Positive for fatigue. Negative for fever. HENT: Positive for congestion, rhinorrhea, sinus pressure and sinus pain. Negative for ear pain and sore throat. Respiratory: Positive for cough, shortness of breath and wheezing. Cardiovascular: Negative. Gastrointestinal: Negative. Genitourinary: Negative. Musculoskeletal: Negative. All other systems reviewed and are negative. PAST MEDICAL HISTORY Diagnosis Date Acid reflux Benign paroxysmal vertigo Depression DVT of lower extremity (deep venous thrombosis) ([facility]) 2010 left leg 07/2012 right leg Heart burn High cholesterol Morbid obesity (HCC) Obstructive sleep apnea 2013 Pulmonary embolism ([facility]) DVT left leg with PE in 2009 while on OCP Current Outpatient Medications Medication Sig Dispense Refill Omeprazole 20 mg TbEC Take 1 tablet by mouth twice daily. levothyroxine (SYNTHROID) 88 mcg tablet TAKE 1 TABLET BY MOUTH EVERY DAY IN THE MORNING ON EMPTY STOMACH amphetamine-dextroamphetamine XR (ADDERALL XR) 10 mg 24 hr capsule Take 1 capsule by mouth. metFORMIN (GLUCOPHAGE) 500 mg tablet Take 1 tablet by mouth twice daily with meals. estradiol (ESTRACE) 2 mg tablet Take 2 mg by mouth once daily. FLUoxetine (PROZAC) 20 mg capsule TAKE 1 CAPSULE DAILY 90 capsule 3 rivaroxaban (XARELTO) 20 mg tablet Take 1 tablet by mouth daily with dinner. 30 tablet 5 atorvastatin (LIPITOR) 10 mg tablet Take 0.5 tablets by mouth once daily. Indications: 1/2 tab daily 5mg 45 tablet 3 CPAP Initiate CPAP @ 13 cm of water with humidification. Mask (per patient preference) optional chin strap (if indicated) , filters, tubing, humidifier and lifetime supplies. Dx SUKHDEEP 327.23 (Patient taking differently: five times a week. Initiate CPAP @ 13 cm of water with humidification. Mask (per patient preference) optional chin strap (if indicated) , filters, tubing, humidifier and lifetime supplies. Dx SUKHDEEP 327.23) 1 Device 0 predniSONE (DELTASONE) 20 mg tablet Take 2 tablets by mouth once daily for 5 days. 10 tablet 0 benzonatate (TESSALON PERLES) 100 mg capsule Take 2 capsules by mouth three times daily as needed. 30 capsule 0 albuterol HFA (PROAIR HFA) 90 mcg/actuation inhaler Inhale 2 Puffs as instructed every 6 hours as needed. 1 Each 0 doxycycline (VIBRA-TABS) 100 mg tablet Take 1 tablet by mouth twice daily for 7 days. 14 tablet 0 benzonatate (TESSALON PERLES) 100 mg capsule Take 1 capsule by mouth three times daily as needed for cough. 12 capsule 0 famotidine (PEPCID) 20 mg tablet Take 20 mg by mouth twice daily. (Patient not taking: Reported on 12/05/2021) albuterol HFA (PROVENTIL HFA, VENTOLIN HFA) 90 mcg/actuation inhaler Inhale 2 Puffs as instructed. (Patient not taking: Reported on 12/05/2021) acetaminophen 500 mg tablet Take 2 tablets by mouth every 6 hours as needed. No current facility-administered medications for this visit. PAST SURGICAL HISTORY Procedure Laterality Date LAPS SUPRACRV HYSTERECT 250 GM/< RMVL TUBE/OVAR 12/04/2015 Dr. James Rivera PAST SURGICAL HISTORY OF Left 10/03/[address] repair of broken fibula. Dr. Carson UNLISTED ANES PX(S) ~2006 elbow surgery right and right forearm UNLISTED ANES PX(S) June 2009 tubal ligation FAMILY HISTORY Adopted: Yes Problem Relation Age of Onset other (unknown) Other adopted Diabetes Other maternal side other (unknown) Father Heart Mother s/p ablation Cancer Mother ovarian or cervical Asthma Mother COPD Mother Social History Tobacco Use Smoking status: Former Packs/day: 1.50 Years: 22.00 Pack years: 33.00 Types: Cigarettes Quit date: 08/27/2004 Years since quittin.7 Smokeless tobacco: Never Substance Use Topics Alcohol use: No Alcohol/week: 0.0 standard drinks Comment: cut out daily wine at night 07/2013. Hx of over use. Drug use: No Objective BP 128/86 Pulse 99 Temp 36.4 C (97.5 F) Resp 20 Wt 118.9 kg (262 lb 3.2 oz) LMP 04/29/2013 SpO2 96% BMI 42.32 kg/m Physical Exam Vitals reviewed. Constitutional: Appearance: Normal appearance. HENT: Head: Normocephalic and atraumatic. Right Ear: Tympanic membrane, ear canal and external ear normal. Left Ear: Tympanic membrane, ear canal and external ear normal. Nose: Congestion present. Right Sinus: Maxillary sinus tenderness present. Left Sinus: Maxillary sinus tenderness present. Mouth/Throat: Mouth: Mucous membranes are moist. Pharynx: Oropharynx is clear. Cardiovascular: Rate and Rhythm: Normal rate and regular rhythm. Heart sounds: Normal heart sounds. Pulmonary: Effort: Pulmonary effort is normal. No respiratory distress. Breath sounds: Wheezing present. No rhonchi. Musculoskeletal: Cervical back: Neck supple. Lymphadenopathy: Cervical: No cervical adenopathy. Skin: General: Skin is warm and dry. Findings: No rash. Neurological: General: No focal deficit present. Mental Status: She is alert. Assessment and Plan ASSESSMENT/PLAN: 1. Sinobronchitis - ICD9: 473.9, 490, ICD10: J32.9, J40 (primary diagnosis) - Will begin treatment with Doxycycline, tessalon, albuterol and prednisone. Will check xray tomorrow, call on results. Continue doxycycline either way. - Supportive care with plenty of fluids, rest, and analgesia prn. - Follow up in 3-5 days if symptoms persist or worsen. - XR CHEST 2V FRONTAL/LAT 2. COVID-19 - ICD9: 079.89, ICD10: U07.1 - XR CHEST 2V FRONTAL/LAT Derrick Pitts PA-C documented in this encounter [facility] 04-01-2022 History of Present illness Narrative Images from the original note were not included. VASCULAR MEDICINE CLINIC NOTE Patient Name: Marli Pantoja MR #: [id number] : 1965 Physicians: Marli Weiss DO (Family); No ref. provider found (Referring) _ Dear Marli Weiss DO, It was a pleasure seeing Marli Pantoja who is a 56 y.o. female, being seen today on 04/01/2022 in the VASCULAR MEDICINE CLINIC, for follow up after recent procedure. The patient is s/p Left GSV RadioFrequency without adjunctive foam sclerotherapy, done on 03/28/22. Adjunctive sclerotherapy was NOT performed due to history of severe skin reactions. Pain is rated as 0/ 10. VCSS Score today is 4 on the Left COMPRESSION THERAPY USE - Full Compliance Satisfaction with the procedure - Yes Venous duplex today showed successful ablation and sclerosis of the treated veins. I shared these results with Mrs Marli Pantoja today. 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 She took her last dose of prednisone yesterday so doesn't really know if the procedure helped with her intense itching. Will evaluate at her 6-8 week follow up. Post-procedure complications noted today: none The return to clinic visit is 6-8 weeks. It was a pleasure participating in the care of this patient. The note was dictated using [employer] dictation system. The voice recognition software is inherently subject to errors including those of syntax and sound-alike substitutions which may escape proofreading. In such instances, original meaning may be extrapolated by contextual derivation. Terra Cramer, DNP, PERSONNEL COUNSELOR, ACNP- ---- Physical Examination: Vital Signs: BP 138/88 Pulse 92 Temp 97.4 F (36.3 C) Resp 18 Extremities & Vascular Evaluation - - Edema - Right None; Left None - Chronic stasis changes - Right Lower Extremity Present; Left Lower Extremity Present - Lipodermatosclerosis - Right Lower Extremity absent; Left Lower Extremity Absent - Bruising - None in the thigh & Calf - CEAP SCORE - Right - 3; Left - 3 Past History: Past Medical History: Diagnosis Date Clotting disorder ([facility]) Feb 2009 DVT-Double PE Depression DVT (deep venous thrombosis) ([facility]) GERD (gastroesophageal reflux disease) Prior to 2004? Hyperlipidemia Hyperthyroidism Leg swelling Lymphedema Pulmonary embolism ([facility]) Venous insufficiency of both lower extremities Past Surgical History: Procedure Laterality Date ELBOW SURGERY 2006 FIBULA FRACTURE SURGERY 2014 hardware removed PLANTAR FASCIA RELEASE Right heel TOTAL ABDOMINAL HYSTERECTOMY WISDOM TOOTH EXTRACTION 2 removed Family History Adopted: Yes Problem Relation Age of Onset Thyroid disease Mother Hypertension Mother Atrial fibrillation Mother Social History Socioeconomic History Marital status: Tobacco Use Smoking status: Former Types: Cigarettes Quit date: 08/27/2004 Years since quittin.6 Smokeless tobacco: Never Vaping Use Vaping Use: Never used Substance and Sexual Activity Alcohol use: Yes Alcohol/week: 4.0 standard drinks Types: 4 Glasses of wine per week Drug use: Never Allergy Information: I have reviewed the patient's allergies. Other Home Medications: Active Home Medications Medication Sig Take Last Dose On Take Morning of Surgery Comment(s) acetaminophen (TYLENOL) 500 MG tablet Take 2 (two) tablets (1,000 mg total) by mouth every 6 (six) hours as needed . atorvastatin (LIPITOR) 10 MG tablet Take 1 (one) tablet (10 mg total) by mouth daily . augmented betamethasone dipropionate (DIPROLENE-AF) 0.05 % cream as needed . dextroamphetamine-amphetamine (ADDERALL XR) 10 MG 24 hr capsule Take 1 (one) capsule (10 mg total) by mouth every morning . diosmin complex no.1 630 mg Tab Take by mouth . estradioL (ESTRACE) 2 MG tablet Take 1 (one) tablet (2 mg total) by mouth daily . FLUoxetine (PROZAC) 20 MG capsule Take 2 (two) capsules (40 mg total) by mouth daily . halcinonide 0.1 % Crea Apply topically as needed . levothyroxine (SYNTHROID, LEVOTHROID) 75 MCG tablet Take 1 (one) tablet (75 mcg total) by mouth See Admin Instructions 4 days a week . levothyroxine (SYNTHROID, LEVOTHROID) 88 MCG tablet Take 1 (one) tablet (88 mcg total) by mouth once daily . metFORMIN (GLUCOPHAGE) 500 MG tablet Take 1 (one) tablet (500 mg total) by mouth 2 (two) times a day with meals . omeprazole (PRILOSEC) 40 MG capsule Take 1 (one) capsule (40 mg total) by mouth daily . rivaroxaban (XARELTO) 20 mg Tab Take 1 (one) tablet (20 mg total) by mouth daily . Images from the original note were not included. VCSS SCORE LEFT - PAIN - None; Occasional no meds, Daily with occasional meds; Daily with daily meds - 0 VARICOSE VEINS - None; Few scattered; Multiple confined to thigh/ calf; Extensive - 1 EDEMA - None; Evening, Afternoon, morning - 1 SKIN PIGMENTATION - None; focal; malleolus; extensive - 0 INFLAMMATION - None; MIld; Moderate; Severe - 0 INDURATION - None; Focal; Medial ankle; Extensive - 0 NUMBER OF ACTIVE ULCERS - 0; 1; 2; >2 - 0 ACTIVE ULCER DURATION - None; <3 Mo; 3-12 months; >1 YEAR - 0 ACTIVE ULCER DIAMETER None; <2; 2-6; >6 - 0 COMPRESSION THERAPY USE. None; intermittent; most days; Full compliance - 2 Total Score - 4 documented in this encounter [facility] 03-28-2022 Evaluation + Plan note Associated Problem(s): Varicose veins of lower extremities with complications, bilateral [facility] 03-28-2022 Miscellaneous Notes Associated Problem(s): Varicose veins of lower extremities with complications, bilateral documented in this encounter [facility] 03-28-2022 History of Present illness Narrative Images from the original note were not included. LEFT GREAT SAPHENOUS VEIN ENDOVENOUS RADIOFREQUENCY ABLATION (VENEFIT) PROCEDURE NOTE Name: Marli Pantoja : 1965 Date of Procedure: 03/28/2022 PERFORMED BY: Jose Ho MD Alteration Tailor Apprentice: None ANESTHESIA: 0.1% lidocaine in an ultrasound guided subfascial perivenous tumescent technique. Indication: Varicose veins of lower extremities with complications, bilateral Past Medical History: Pleasant 56-year-old female with history of varicose veins with complications and history of diffuse rash left lower extremity greater than the right lower extremity. Mast cell activation syndrome was considered but [facility] allergy immunology experts felt that this was secondary to underlying venous insufficiency. As such the endovenous therapies are being done carefully. Only radiofrequency ablation is being performed. She also has history of DVT and pulmonary embolism and is on long-term rivaroxaban 20 mg. This is being managed by Dr. Pham. The Xarelto therapy was not interrupted for the procedure today. Today she stated that the symptoms are now predominantly in the left lower extremity and that cetirizine 10 mg twice a day is not helping. She started Medrol Dosepak yesterday. I have advised her that if she notes significant improvement with just the radiofrequency ablation, I would recommend polidocanol sclerotherapy since it would suggest that the venous hypertension is resulting in the pruritic response due to stasis eczema or stasis dermatitis. She verbalized understanding. R/B/A discussed and procedures were done after informed consent, successfully as below. VCSS Score: 11 Procedure: The patient was taken to the office operating suite where the saphenous mapping was performed. The left leg was then prepped and draped in the usual sterile fashion. The left GSV was accessed percutaneously under local anesthesia (1% Lidocaine) under ultrasound guidance. Access site was at mid calf. This was achieved by using a micropuncture kit and access was gained with a 21gauge needle and a 0.018 guidewire was passed through the needle. The needle was removed leaving the guidewire in place. A scalpel was used to slightly enlarge the skin opening. A 7 Peruvian x 7 cm sheath was introduced over the wire into the vein. The dilator and the wire were removed and the sheath was left in place. The ClosureFast catheter was inserted into the introducer sheath. A longitudinal view of the saphenofemoral junction with ultrasound was obtained and the catheter was slowly advanced to the saphenofemoral junction. Using 900 cc total of tumescent solution (10% Solution of Ringer Lactate mixed with 1% Lidocaine) was infiltrated all along the vein beginning from the access site up to the saphenofemoral junction using a 20 gauge spinal needle. The final tip position of the catheter was confirmed and the tip was approximately 2.68 cm from the saphenofemoral junction. At this point the saphenofemoral junction was infiltrated with tumescent. The patient was then placed in Trendelenburg's position. At this point the radiofrequency energy delivery was started, the ClosureFast catheter remained stationary, and a 7 cm vein segment was heated at once. Two cycles of 20 second energy delivery were applied for the first 7 cm segment. After completion of the first segment the catheter was positioned to the next segment guided by the shaft markers, and treatment was started again. Accurate pullback was facilitated by positioning the sheath to align with one of the 7 cm markers on the catheter shaft. This was continued until the end of the procedure. Throughout the procedure, manual compression was held over the area of the heating element to allow contact of the catheter. A total length of 56 cm of the GSV was ablated for a total time of 180 seconds. With ultrasound, vein occlusion was confirmed. There was no flow within the lumen and echogenic filling, vein non-compressibility, and thickening of the vein wall was confirmed. The introducer sheath was removed. The patient's leg was then cleaned and homeostasis was achieved with compression. Cotton batting was applied over the entire treated area and Coban wrap was applied. Procedural pain: Post Procedural pain: Insensate Tolerated Well: Yes Complication (Device/ Procedural): None The patient tolerated the procedure well and was ambulating in the office before being discharged home. Jose Ho MD, RVT, FSVM. Images from the original note were not included. VCSS SCORE LEFT - PAIN - None; Occasional no meds, Daily with occasional meds; Daily with daily meds - 0 VARICOSE VEINS - None; Few scattered; Multiple confined to thigh/ calf; Extensive - 2 EDEMA - None; Evening, Afternoon, morning - 1 SKIN PIGMENTATION - None; focal; malleolus; extensive - 3 INFLAMMATION - None; MIld; Moderate; Severe - 1 INDURATION - None; Focal; Medial ankle; Extensive - 2 NUMBER OF ACTIVE ULCERS - 0; 1; 2; >2 - 0 ACTIVE ULCER DURATION - None; <3 Mo; 3-12 months; >1 YEAR - 0 ACTIVE ULCER DIAMETER None; <2; 2-6; >6 - 0 COMPRESSION THERAPY USE. None; intermittent; most days; Full compliance - 2 Total Score - 11 documented in this encounter [facility] 03-28-2022 Instructions Alma Delia Tadeo RN - 03/28/2022 12:23 PM EST Radiofrequency Venous Ablation Post Procedures Instructions Dressing and compression instructions: Cast padding and coban from toes to groin. This is to stay on until Thursday 03/30. If the dressing becomes loose and is no longer providing good compression remove it and put on your compression stockings. You can resume your usual activities. Avoid strenuous exercise (like weightlifting and squatting) for a few days after the procedure. It is encouraged that you walk 1 hour a day, which may be divided up into intervals. Keep your legs elevated whenever possible. Avoid standing still or sitting with your legs down whenever possible. If you have any problems with your bandages, contact your nurse for direction. You may experience some temporary soreness following the procedure, which can be treated by using ppir-nsh-axzpche (non-aspirin) pain relievers like Tylenol, Advil, or Aleve. An ice pack directly over the wound will reduce swelling, bruising, and pain over the first few days. Wear your compression stockings 24-hours a day for the first week after your wraps are removed. You may return to your usual diet immediately. If develop any redness, raised tender area that is tender to touch, swelling, fever or drainage please call the nurse at [phone] Monday - Monday 8:00am to 4:00pm. documented in this encounter [facility] 01-14-2022 Instructions Malik Alvarado RN - 01/14/2022 9:55 AM EST If you have any questions or concerns please call Dr Ho's Social Media Analyst: Malik MAZARIEGOS at [phone]. Sarna for the itching documented in this encounter [facility] 01-14-2022 History of Present illness Narrative Images from the original note were not included. VASCULAR MEDICINE CLINIC NOTE Patient Name: Marli Pantoja MR #: [id number] : 1965 Physicians: Marli Weiss DO (Family); No ref. provider found (Referring) _ Dear Marli Weiss DO, It was a pleasure seeing Marli Pantoja who is a 56 y.o. female, being seen today on 01/14/2022 in the VASCULAR MEDICINE CLINIC. 56-year-old female kindly referred to me by Dr. Pham for bilateral lower extremity venous insufficiency. He also diagnosed her with lipohypertrophy. There is work-up for mast cell activation syndrome and she is going to see deputy bailiff today for further work-up. She states that the itching is unbearable and sometimes the skin is raw. She states that the compression therapy makes this worse. She does not have any history of DVT or pulmonary embolism or family history of the same or varicose veins. She had a venous insufficiency study at [facility] and this demonstrated bilateral great saphenous vein incompetence. As such she is referred to us for possible interventions. As noted due to the intense itching she is unable to wear compression socks despite numerous attempts. She does have varicosities bilaterally. She returns for follow-up. She underwent a venous insufficiency study before her visit today and surprisingly there was no evidence of reflux in the right lower extremity at all. The left lower extremity however demonstrated extensive reflux from the groin to the ankle. She states that she saw the deputy bailiff at the [facility] and she was told that this is not mast cell activation syndrome. I reviewed the note by Dr. John Massey in the allergy and immunology department and he felt that the itching was secondary to lipohypertrophy and venous insufficiency and recommended cetirizine 10 mg twice a day, and treatment of the underlying problems. _ Assessment and Plan: Varicose veins with complications: Bilateral lower extremity edema: Stasis dermatitis: We had a lengthy and honest discussion. With lack of any reflux in the right lower extremities difficult to explain the itching and scratching on the right side. Moreover even on the left side at the scratch abebe on the lateral aspects of the calfs and the reflux is in the great saphenous vein in the medial tributaries where the scratch abebe are noticeably fewer. I told her that not quite sure that venous insufficiency is resulting in the itching and scratching. 1 could theorized that she has venous insufficiency in the left lower extremity and the resultant stasis dermatitis leading to pruritus in the left lower extremity and then auto sensitization to the right lower extremity. However this is just irritation. If she is looking for any treatment option I would recommend thermal ablation of the great saphenous vein. I would not recommend foam sclerotherapy due to the allergic reactions she has had. I am not comfortable doing this. If the symptoms improve markedly after the great saphenous vein ablation on the left lower extremity, then we could consider staged foam sclerotherapy at a later time. She did not know that Dr. Massey recommended cetirizine 10 mg twice daily. I have advised her to start this and also use Sarna cream. This is clearly lifestyle limiting. Since the patient failed conservative management which where recommended at the previous visit including, compression therapy, leg elevation and exercise/weightloss, I recommend the following - Left GSV Radiofrequency (cpt -09754) We discussed the risks, benefits and alternatives at great length. There is no need for Valium or conscious sedation. However I would start a Medrol Dosepak the day before the procedure. She is going to discuss with her and get back to us. The return to clinic visit is 3 months. It was a pleasure participating in the care of this patient. The note was dictated using [employer] dictation system. The voice recognition software is inherently subject to errors including those of syntax and sound-alike substitutions which may escape proofreading. In such instances, original meaning may be extrapolated by contextual derivation. Jose Ho MD, RVT, FS. ---- Physical Examination: Vital Signs: BP (!) 149/86 (BP Location: Left arm, Patient Position: Sitting, BP Cuff Size: X-large Adult) Pulse 85 Ht 5' 6 Wt 120.7 kg (266 lb) BMI 42.93 kg/m Constitutional: Patient is oriented to person, place, and time. Body habitus - obese Head: Normocephalic. Cardiovascular: Normal rate. Exam reveals no gallop and no friction rub. No murmur heard Pulses - Carotid - Right - Bruit Absent 0/6 Left - Bruit Absent 0/6 Femoral - Right - 2/2; Left - 2/2 Popliteal- Right - 2/2; Left - 2/2 DP- Right - 2/2; Left - 2/2 PT- Right - 2/2; Left - 2/2 Extremities & Vascular Evaluation - - Edema - Right Trace; Left Trace - Stemmer's Sign - Right Toe negative; Left Toe negative - Dorsal Hump - Right Foot negative; Left Foot negative - Chronic stasis changes - Right Lower Extremity Present; Left Lower Extremity Present - Lipodermatosclerosis - Right Lower Extremity absent; Left Lower Extremity Absent - Varicose Veins - Right Lower Extremity Noted on the thigh and calf; Left Lower Extremity Noted on the thigh and calf - CEAP SCORE - Right - 3; Left - 3 Pulmonary/Chest: Effort normal. No respiratory distress. He has no wheezes. He has no rales. Abdominal: Soft. Aorta - non-palpable Musculoskeletal: No evidence of join effusions Neurological: Alert and oriented to person, place, and time. Skin: Skin is warm and dry. Psychiatric: He has a normal mood and affect. Past History: Past Medical History: Diagnosis Date Clotting disorder ([facility]) Feb 2009 DVT-Double PE Depression DVT (deep venous thrombosis) ([facility]) GERD (gastroesophageal reflux disease) Prior to 2004? Hyperlipidemia Hyperthyroidism Leg swelling Lymphedema Pulmonary embolism ([facility]) Venous insufficiency of both lower extremities Past Surgical History: Procedure Laterality Date ELBOW SURGERY 2007 FIBULA FRACTURE SURGERY 2015 hardware removed PLANTAR FASCIA RELEASE Right heel TOTAL ABDOMINAL HYSTERECTOMY WISDOM TOOTH EXTRACTION 2 removed Family History Adopted: Yes Problem Relation Age of Onset Thyroid disease Mother Hypertension Mother Atrial fibrillation Mother Social History Socioeconomic History Marital status: Tobacco Use Smoking status: Former Types: Cigarettes Quit date: 08/27/2004 Years since quittin.3 Smokeless tobacco: Never Vaping Use Vaping Use: Never used Substance and Sexual Activity Alcohol use: Yes Alcohol/week: 4.0 standard drinks Types: 4 Glasses of wine per week Drug use: Never Allergy Information: I have reviewed the patient's allergies. Other Home Medications: Current Outpatient Medications Medication Sig Dispense Refill acetaminophen (TYLENOL) 500 MG tablet Take 2 (two) tablets (1,000 mg total) by mouth every 6 (six) hours as needed . atorvastatin (LIPITOR) 10 MG tablet Take 1 (one) tablet (10 mg total) by mouth daily . augmented betamethasone dipropionate (DIPROLENE-AF) 0.05 % cream as needed . dextroamphetamine-amphetamine (ADDERALL XR) 10 MG 24 hr capsule Take 1 (one) capsule (10 mg total) by mouth every morning . diosmin complex no.1 630 mg Tab Take by mouth . estradioL (ESTRACE) 2 MG tablet Take 1 (one) tablet (2 mg total) by mouth daily . FLUoxetine (PROZAC) 20 MG capsule Take 2 (two) capsules (40 mg total) by mouth daily . halcinonide 0.1 % Crea Apply topically as needed . levothyroxine (SYNTHROID, LEVOTHROID) 75 MCG tablet Take 1 (one) tablet (75 mcg total) by mouth See Admin Instructions 4 days a week . levothyroxine (SYNTHROID, LEVOTHROID) 88 MCG tablet Take 1 (one) tablet (88 mcg total) by mouth once daily . metFORMIN (GLUCOPHAGE) 500 MG tablet Take 1 (one) tablet (500 mg total) by mouth 2 (two) times a day with meals . omeprazole (PRILOSEC) 40 MG capsule Take 1 (one) capsule (40 mg total) by mouth daily . rivaroxaban (XARELTO) 20 mg Tab Take 1 (one) tablet (20 mg total) by mouth daily . No current facility-administered medications for this visit. Business Services Officer: No Review of Systems Constitutional: Negative for diaphoresis, malaise/fatigue, weight gain and weight loss. HENT: Negative for hearing loss, nosebleeds and tinnitus. Eyes: Negative for blurred vision and visual disturbance. Cardiovascular: Positive for leg swelling. Negative for chest pain, claudication, cyanosis, dyspnea on exertion, irregular heartbeat, near-syncope, orthopnea, palpitations, paroxysmal nocturnal dyspnea and syncope. Respiratory: Negative for hemoptysis, shortness of breath and snoring. Endocrine: Negative for cold intolerance and heat intolerance. Hematologic/Lymphatic: Does not bruise/bleed easily. Skin: Negative for flushing, poor wound healing and rash. Musculoskeletal: Negative for back pain, muscle weakness and myalgias. Gastrointestinal: Negative for abdominal pain, change in bowel habit, melena, nausea and vomiting. Genitourinary: Negative for decreased libido and hematuria. Neurological: Positive for numbness. Negative for loss of balance. Psychiatric/Behavioral: Negative for memory loss. The patient is not nervous/anxious. documented in this encounter [facility] 01-14-2022 History of Present illness Narrative Images from the original note were not included. VASCULAR MEDICINE CLINIC NOTE Patient Name: Marli Pantoja MR #: [id number] : 1965 Physicians: Marli Weiss DO (Family); No ref. provider found (Referring) _ Dear Marli Weiss DO, It was a pleasure seeing Marli Pantoja who is a 56 y.o. female, being seen today on 01/14/2022 in the VASCULAR MEDICINE CLINIC. 56-year-old female kindly referred to me by Dr. Pham for bilateral lower extremity venous insufficiency. He also diagnosed her with lipohypertrophy. There is work-up for mast cell activation syndrome and she is going to see deputy bailiff today for further work-up. She states that the itching is unbearable and sometimes the skin is raw. She states that the compression therapy makes this worse. She had history of pulmonary embolism in 2009 which initially was attributed to control pills but after the warfarin therapy was stopped after 6 months she ended up having another DVT about 3 years later. She later on found her mother and noted that she had extensive family history of DVTs as well. Family history of varicose veins is not known. She had a venous insufficiency study at [facility] and this demonstrated bilateral great saphenous vein incompetence. As such she is referred to us for possible interventions. As noted due to the intense itching she is unable to wear compression socks despite numerous attempts. She does have varicosities bilaterally. She returns for follow-up. She underwent a venous insufficiency study before her visit today and surprisingly there was no evidence of reflux in the right lower extremity at all. The left lower extremity however demonstrated extensive reflux from the groin to the ankle. She states that she saw the deputy bailiff at the [facility] and she was told that this is not mast cell activation syndrome. I reviewed the note by Dr. John Massey in the allergy and immunology department and he felt that the itching was secondary to lipohypertrophy and venous insufficiency and recommended cetirizine 10 mg twice a day, and treatment of the underlying problems. _ Assessment and Plan: Varicose veins with complications: Bilateral lower extremity edema: Stasis dermatitis: We had a lengthy and honest discussion. With lack of any reflux in the right lower extremities difficult to explain the itching and scratching on the right side. Moreover even on the left side at the scratch abebe on the lateral aspects of the calfs and the reflux is in the great saphenous vein in the medial tributaries where the scratch abebe are noticeably fewer. I told her that not quite sure that venous insufficiency is resulting in the itching and scratching. 1 could theorized that she has venous insufficiency in the left lower extremity and the resultant stasis dermatitis leading to pruritus in the left lower extremity and then auto sensitization to the right lower extremity. However this is just irritation. If she is looking for any treatment option I would recommend thermal ablation of the great saphenous vein. I would not recommend foam sclerotherapy due to the allergic reactions she has had. I am not comfortable doing this. If the symptoms improve markedly after the great saphenous vein ablation on the left lower extremity, then we could consider staged foam sclerotherapy at a later time. She did not know that Dr. Massey recommended cetirizine 10 mg twice daily. I have advised her to start this and also use Sarna cream. This is clearly lifestyle limiting. Since the patient failed conservative management which where recommended at the previous visit including, compression therapy, leg elevation and exercise/weightloss, I recommend the following - Left GSV Radiofrequency (cpt -62022) We discussed the risks, benefits and alternatives at great length. There is no need for Valium or conscious sedation. However I would start a Medrol Dosepak the day before the procedure. She is going to discuss with her and get back to us. The return to clinic visit is 3 months. It was a pleasure participating in the care of this patient. The note was dictated using [employer] dictation system. The voice recognition software is inherently subject to errors including those of syntax and sound-alike substitutions which may escape proofreading. In such instances, original meaning may be extrapolated by contextual derivation. Jose Ho MD, RVT, [facility]. ---- Physical Examination: Vital Signs: BP (!) 149/86 (BP Location: Left arm, Patient Position: Sitting, BP Cuff Size: X-large Adult) Pulse 85 Ht 5' 6 Wt 120.7 kg (266 lb) BMI 42.93 kg/m Constitutional: Patient is oriented to person, place, and time. Body habitus - obese Head: Normocephalic. Cardiovascular: Normal rate. Exam reveals no gallop and no friction rub. No murmur heard Pulses - Carotid - Right - Bruit Absent 0/6 Left - Bruit Absent 0/6 Femoral - Right - 2/2; Left - 2/2 Popliteal- Right - 2/2; Left - 2/2 DP- Right - 2/2; Left - 2/2 PT- Right - 2/2; Left - 2/2 Extremities & Vascular Evaluation - - Edema - Right Trace; Left Trace - Stemmer's Sign - Right Toe negative; Left Toe negative - Dorsal Hump - Right Foot negative; Left Foot negative - Chronic stasis changes - Right Lower Extremity Present; Left Lower Extremity Present - Lipodermatosclerosis - Right Lower Extremity absent; Left Lower Extremity Absent - Varicose Veins - Right Lower Extremity Noted on the thigh and calf; Left Lower Extremity Noted on the thigh and calf - CEAP SCORE - Right - 3; Left - 3 Pulmonary/Chest: Effort normal. No respiratory distress. He has no wheezes. He has no rales. Abdominal: Soft. Aorta - non-palpable Musculoskeletal: No evidence of join effusions Neurological: Alert and oriented to person, place, and time. Skin: Skin is warm and dry. Psychiatric: He has a normal mood and affect. Past History: Past Medical History: Diagnosis Date Clotting disorder ([facility]) Feb 2009 DVT-Double PE Depression DVT (deep venous thrombosis) ([facility]) GERD (gastroesophageal reflux disease) Prior to 2004? Hyperlipidemia Hyperthyroidism Leg swelling Lymphedema Pulmonary embolism ([facility]) Venous insufficiency of both lower extremities Past Surgical History: Procedure Laterality Date ELBOW SURGERY 2006 FIBULA FRACTURE SURGERY 2014 hardware removed PLANTAR FASCIA RELEASE Right heel TOTAL ABDOMINAL HYSTERECTOMY WISDOM TOOTH EXTRACTION 2 removed Family History Adopted: Yes Problem Relation Age of Onset Thyroid disease Mother Hypertension Mother Atrial fibrillation Mother Social History Socioeconomic History Marital status: Tobacco Use Smoking status: Former Types: Cigarettes Quit date: 08/27/2004 Years since quittin.3 Smokeless tobacco: Never Vaping Use Vaping Use: Never used Substance and Sexual Activity Alcohol use: Yes Alcohol/week: 4.0 standard drinks Types: 4 Glasses of wine per week Drug use: Never Allergy Information: I have reviewed the patient's allergies. Other Home Medications: Current Outpatient Medications Medication Sig Dispense Refill acetaminophen (TYLENOL) 500 MG tablet Take 2 (two) tablets (1,000 mg total) by mouth every 6 (six) hours as needed . atorvastatin (LIPITOR) 10 MG tablet Take 1 (one) tablet (10 mg total) by mouth daily . augmented betamethasone dipropionate (DIPROLENE-AF) 0.05 % cream as needed . dextroamphetamine-amphetamine (ADDERALL XR) 10 MG 24 hr capsule Take 1 (one) capsule (10 mg total) by mouth every morning . diosmin complex no.1 630 mg Tab Take by mouth . estradioL (ESTRACE) 2 MG tablet Take 1 (one) tablet (2 mg total) by mouth daily . FLUoxetine (PROZAC) 20 MG capsule Take 2 (two) capsules (40 mg total) by mouth daily . halcinonide 0.1 % Crea Apply topically as needed . levothyroxine (SYNTHROID, LEVOTHROID) 75 MCG tablet Take 1 (one) tablet (75 mcg total) by mouth See Admin Instructions 4 days a week . levothyroxine (SYNTHROID, LEVOTHROID) 88 MCG tablet Take 1 (one) tablet (88 mcg total) by mouth once daily . metFORMIN (GLUCOPHAGE) 500 MG tablet Take 1 (one) tablet (500 mg total) by mouth 2 (two) times a day with meals . omeprazole (PRILOSEC) 40 MG capsule Take 1 (one) capsule (40 mg total) by mouth daily . rivaroxaban (XARELTO) 20 mg Tab Take 1 (one) tablet (20 mg total) by mouth daily . No current facility-administered medications for this visit. Business Services Officer: No Review of Systems Constitutional: Negative for diaphoresis, malaise/fatigue, weight gain and weight loss. HENT: Negative for hearing loss, nosebleeds and tinnitus. Eyes: Negative for blurred vision and visual disturbance. Cardiovascular: Positive for leg swelling. Negative for chest pain, claudication, cyanosis, dyspnea on exertion, irregular heartbeat, near-syncope, orthopnea, palpitations, paroxysmal nocturnal dyspnea and syncope. Respiratory: Negative for hemoptysis, shortness of breath and snoring. Endocrine: Negative for cold intolerance and heat intolerance. Hematologic/Lymphatic: Does not bruise/bleed easily. Skin: Negative for flushing, poor wound healing and rash. Musculoskeletal: Negative for back pain, muscle weakness and myalgias. Gastrointestinal: Negative for abdominal pain, change in bowel habit, melena, nausea and vomiting. Genitourinary: Negative for decreased libido and hematuria. Neurological: Positive for numbness. Negative for loss of balance. Psychiatric/Behavioral: Negative for memory loss. The patient is not nervous/anxious. documented in this encounter [facility] 12-05-2021 Influenza virus A and B RNA and SARS-CoV-2 (COVID-19) N gene panel GIORGI+probe (Resp) COVID 19 RESULT: SARS-CoV-2 (Agent of COVID-19) Not Detected by RT-PCR or equivalent method. kristy [id number] (RACHEL)_EUA This test was developed and its performance characteristics determined by [facility]'s [facility]. This test has been authorized by FDA under an Emergency Use Authorization (EUA). This test has been validated in accordance with the FDA's Guidance Document Policy for Diagnostics Testing in Laboratories Certified to Perform High Complexity Testing under CLIA prior to Emergency use Authorization for Coronavirus Disease 2019 during the Public Health Emergency issued on April 27, 2019. Test performed by [facility], [facility], [address] [place] [address]. INFLUENZA A PCR: Negative for Influenza A by RT-PCR INFLUENZA B PCR: Negative for Influenza B by RT-PCR [facility] documented as of this encounter (statuses as of 12/05/2021) [facility]-2013 History of Past illness Narrative* Problem Noted Date Resolved Date Acute venous embolism and th rombosis of unspecified deep vessels of lower extremity 09/14/2012 10/29/2012 Peripheral vertigo, unspecified 12/21/2011 05/01/2017 documented as of this encounter (statuses as of 05/15/2022) [facility] History of Past illness Narrative* Problem Noted Date Resolved Date Acute venous embolism and th rombosis of unspecified deep vessels of lower extremity 09/14/2012 10/29/2012 Peripheral vertigo, unspecified 12/21/2011 05/01/2017 documented as of this encounter (statuses as of 06/07/2022) [facility] History of Past illness Narrative* Problem Noted Date Diagnosed Date Resolved Date Acute venous embolism and th rombosis of unspecified deep vessels of lower extremity 09/14/2012 10/29/2012 Peripheral vertigo, unspecified 12/21/2011 05/01/2017 documented as of this encounter (statuses as of 10/01/2022) [facility] note* Diagnosis Leg swelling- Primary Swelling of limb Chronic venous insufficiency Unspecified venous (peripheral) insufficiency Lymphedema Other lymphedema Venous stasis dermatitis of both lower extremities Lipoedema Edema Pruritus of skin Unspecified pruritic disorder [facility] Diagnosis Leg swelling- Primary Swelling of limb Chronic venous insufficiency Unspecified venous (peripheral) insufficiency Lymphedema Other noninfectious lymphedema Venous stasis dermatitis of both lower extremities [facility] Diagnosis Pruritus of skin- Primary Unspecified pruritic disorder [facility] Diagnosis Pruritus of skin- Primary Unspecified pruritic disorder [facility] Diagnosis Varicose veins of lower extremities with complications, bilateral- Primary Leg swelling Swelling of limb Chronic venous insufficiency Unspecified venous (peripheral) insufficiency Lymphedema Other noninfectious lymphedema Venous stasis dermatitis of both lower extremities [facility] Diagnosis Adverse effect of proton pump inhibitor- Primary Venous stasis dermatitis of both lower extremities Side effect of medication Pruritic disorder Unspecified pruritic disorder [facility]* Diagnosis Viral illness- Primary Unspecified viral infection, in conditions classified elsewhere and of unspecified site documented in this encounter [facility] note* Diagnosis Chronic venous insufficiency- Primary Unspecified venous (peripheral) insufficiency Varicose veins of lower extremities with complications, bilateral Pruritus Unspecified pruritic disorder [facility] Diagnosis Chronic venous insufficiency- Primary Unspecified venous (peripheral) insufficiency Varicose veins of lower extremities with complications, bilateral Pruritus Unspecified pruritic disorder [facility] Diagnosis Chronic venous insufficiency- Primary Unspecified venous (peripheral) insufficiency Varicose veins of lower extremities with complications, bilateral [facility] Diagnosis Varicose veins of lower extremities with complications, bilateral- Primary Chronic venous insufficiency Unspecified venous (peripheral) insufficiency Pruritus Unspecified pruritic disorder documented in this encounter [facility]* Diagnosis Sinobronchitis- Primary Unspecified sinusitis (chronic) COVID-19 documented in this encounter [facility] note* Diagnosis Closed head injury, initial encounter- Primary Current use of nursing home anticoagulation Long-term (current) use of anticoagulants documented in this encounter [facility] for referral (narrative)* Consultation (Routine) - Authorized Specialty Diagnoses / Procedures Referred By Selena wagner Referred To Contact Diagnoses Leg swelling Chronic venous insufficiency Lymphedema Venous stasis dermatitis of both lower extremities Henrique Pham DO [address] [place] [address] Jose Ho MD [address] [address] Referral ID Status Reason Start Date Expiration Date V isits Requested Visits Authorized [id number] Authorized 08/18/2021 08/18/2022 1 1 [facility] for referral (narrative)* Consultation (Routine) - New Request Specialty Diagnoses / Procedures Referred By Selena wagner Referred To Contact Allergy & Immunology Diagnoses Pruritus of skin Henrique Pham DO [address] [place] [address] Referral ID Status Reason Start Date Expiration Date V isits Requested Visits Authorized [id number] New Request 09/20/2021 10/15/[address] 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 Advance Directives and Living Will 01/14/2022 Reason for Referral Specialty Diagnoses / Procedures Referred By Contac t Referred To Contact Diagnoses Leg swelling Chronic venous insufficiency Lymphedema Venous stasis dermatitis of both lower extremities Lipoedema Procedures VASC DUPLEX VENOUS WITH REFLUX BILATERAL LOWER Henrique Pham, DO [address] [place] [address] Referral ID Status Reason Start Date Expiration Date V isits Requested Visits Authorized [id number] New Request 08/17/2021 09/11/2022 1 1 Specialty Diagnoses / Procedures Referred By Contac t Referred To Contact Diagnoses Leg swelling Chronic venous insufficiency Lymphedema Venous stasis dermatitis of both lower extremities Henrique Pham, DO [address] [place] [address] [place] [address] [place] [address] Referral ID Status Reason Start Date Expiration Date V isits Requested Visits Authorized [id number] New Request 08/17/2021 09/11/2022 1 1 Specialty Diagnoses / Procedures Referred By Contac t Referred To Contact Cardiology Diagnoses Varicose veins of lower extremities with complications, bilateral Procedures Ultrasound venous insufficiency exam Jose Ho MD [address] [place] [address] Referral ID Status Reason Start Date Expiration Date V isits Requested Visits Authorized [id number] Authorized 10/20/2021 10/20/2022 1 1 Specialty Diagnoses / Procedures Referred By Contac t Referred To Contact Cardiology Diagnoses Chronic venous insufficiency Varicose veins of lower extremities with complications, bilateral Procedures [place]trasound [place] [address] [place] [address] Referral ID Status Reason Start Date Expiration Date V isits Requested Visits Authorized [id number] Authorized 03/28/2022 03/28/2023 1 1 Specialty Diagnoses / Procedures Referred By Contac t Referred To Contact Cardiology Diagnoses Varicose veins of lower extremities with complications, bilateral Chronic venous insufficiency Procedures Ultrasound duplex venous leg left Terra Cramer, SENIOR VALIDATION ENGINEER [address] [place] [address] Referral ID Status Reason Start Date Expiration Date V isits Requested Visits Authorized [id number] Pending Review 05/27/2022 05/27/2023 1 1 Health Concerns Infection Onset Date Last Indicated Resolved Time COVID-19 Rule-Out 12/05/2021 12/05/2021 Additional Source Comments INFORMATION SOURCE (unrecogn ized section and content) DATE CREATED AUTHOR AUTHOR'S ORGANIZ ATION [facility] DATE CREATED AUTHOR AUTHOR'S ORGANIZ ATION [facility]/19/2022 [facility] DATE CREATED AUTHOR AUTHOR'S ORGANIZ ATION 03/23/2022 [facility] DATE CREATED AUTHOR AUTHOR'S ORGANIZ ATION 04/27/2022 [facility] [facility] DATE CREATED AUTHOR AUTHOR'S ORGANIZ ATION 10/01/2022 [facility] Reason for Visit (unrecogniz ed section and content) Specialty Diagnoses / Procedures Referred By Contac t Referred To Contact Cardiovascular Medicine Diagnoses Venous stasis dermatitis, unspecified laterality Lymphedema Jose Garcia MD [address] [place] [address] Henrique Pham DO [address] [place] [address] Referral ID Status Reason Start Date Expiration Date V isits Requested Visits Authorized [id number] New Request 06/19/2021 07/14/2022 1 1 Reason Onset Date Comments Results 09/17/2021 Reason Comments Consult Referral/ Leg Swelli ng, Chronic Specialty Diagnoses / Procedures Referred By Contac t Referred To Contact Cardiology Diagnoses Leg swelling Chronic venous insufficiency Lymphedema Venous stasis dermatitis of both lower extremities Henrique Pham DO [address] [place] [address] Jose Ho MD [address] [place] [address] Referral ID Status Reason Start Date Expiration Date V isits Requested Visits Authorized [id number] Pending Review 08/18/2021 08/18/2022 1 1 Reason Comments New Patient New Immunology visit , 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 Specialty Diagnoses / Procedures Referred By Contac t Referred To Contact Allergy & Immunology Diagnoses Pruritus of skin Henrique Pham, DO [address] [place] [address] Referral ID Status Reason Start Date Expiration Date V isits Requested Visits Authorized [id number] New Request 09/20/2021 10/15/2022 1 1 Reason Comments Med Change Request Reason Comments Chest Congestion cough and sore throa t x 5 days Reason Comments Establish Care Reason Comments Procedure Specialty Diagnoses / Procedures Referred By Contac t Referred To Contact Wound Care Diagnoses Varicose veins of bilateral lower extremities with other complications Procedures ENDOVENOUS ABLATION Jose Ho MD [address] [place] [address] [facility] Wound Care [facility] [place] [address] Referral ID Status Reason Start Date Expiration Date Visits Re quested Visits Authorized [id number] Closed 01/23/2022 07/22/2022 1 1 Reason Comments vein follow up Reason Comments Cough Chest congestion, wh eezing x1 month Reason Comments Refill Request Care Teams (unrecognized sec tion and content) Dope Mixer Relationship Specialty Start Date End Date No, Physician [facility] PCP - General 08/17/21 Henrique Pham, DO [address] [place] [address] Consulting Physician Vascular Medicine 08/17/21 Dope Mixer Relationship Specialty Start Date End Date Marli Weiss DO [address] [place] [place] [address] PCP - General Family Medicine 06/21/21 Dope Mixer Relationship Specialty Start Date End Date Marli Weiss DO [address] [place] [place] [address] PCP - General Family Medicine 06/21/21 Dope Mixer Relationship Specialty Start Date End Date Marli Weiss DO [address] [place] [place] [address] [place] [address] PCP - General Family Medicine 10/19/21 Henrique Pham DO [address] [place], [place] [id number] Consulting Physician Vascular Medicine 08/17/21 Dope Mixer Relationship Specialty Start Date End Date Marli Weiss DO [address] [place] [place] [address] PCP - General Family Medicine 06/21/21 Dope Mixer Relationship Specialty Start Date End Date Marli Weiss DO [address] [place] [address] PCP - General Family Medicine 06/21/21 Dope Mixer Relationship Specialty Start Date End Date Marli Weiss DO [address] [place] [address] PCP - General Family Medicine 04/19/16 Ruth Ortega MD [address] [place] [address] Primary Staff Physician Cardiology 05/15/18 Dope Mixer Relationship Specialty Start Date End Date Marli Weiss DO [address] [place] [place] [address] [place] [address] PCP - General Family Medicine 10/19/21 Henrique Pham DO [address] [place] [address] Consulting Physician Vascular Medicine 08/17/21 Dope Mixer Relationship Specialty Start Date End Date Tara Weisstejinder Cabrera DO [address] [place] [address] [place] [address] PCP - General Family Medicine 10/19/21 Henrique Pham DO [address] [place] [address] Consulting Physician Vascular Medicine 08/17/21 Dope Mixer Relationship Specialty Start Date End Date MojganmichealMarli DO [address] [place] [address] [place] [address] PCP - General Family Medicine 10/19/21 Henrique Pham DO [address] [place] [address] Consulting Physician Vascular Medicine 08/17/21 Dope Mixer Relationship Specialty Start Date End Date Marli Weiss DO [address] [address] PCP - General Family Medicine 04/19/16 Ruth Ortega MD [address] [place] [address] Primary Staff Physician Cardiology 05/15/18 Dope Mixer Relationship Specialty Start Date End Date MojganMarli burton DO [address] [place] [address] PCP - General Family Medicine 04/19/16 Ruth Ortega MD [address] [place] [address] Primary Staff Physician Cardiology 05/15/18 Dope Mixer Relationship Specialty Start Date End Date Abhishek Marli Cabrera [address] [facility] [place] [address] PCP - General Family Medicine 04/19/16 Ruth Ortega MD [address] [place] [address] Primary Staff Physician Cardiology 05/15/18 Source Comments (unrecognize d section and content) In the event this informatio n is protected by the Federal Confidentiality of Alcohol and Drug Abuse Patient Records regulations: The Federal rules restrict any use of the information to criminally investigate or prosecute any alcohol or drug abuse patient.[facility] the event this information is protected by the Federal Confidentiality of Alcohol and Drug Abuse Patient Records regulations: The Federal rules restrict any use of the information to criminally investigate or prosecute any alcohol or drug abuse patient.[facility] the event this information is protected by the Federal Confidentiality of Alcohol and Drug Abuse Patient Records regulations: The Federal rules restrict any use of the information to criminally investigate or prosecute any alcohol or drug abuse patient.[facility] the event this information is protected by the Federal Confidentiality of Alcohol and Drug Abuse Patient Records regulations: The Federal rules restrict any use of the information to criminally investigate or prosecute any alcohol or drug abuse patient.[facility] FOR RECORDS PERTAINING TO PATIENTS WHO ARE OR HAVE BEEN ENROLLED IN A CHEMICAL DEPENDENCY/SUBSTANCEABUSE PROGRAM, SOME INFORMATION MAY BE OMITTED. This clinical summary was aggregated from multiple sources. Caution should be exercised in using it in the provision of clinical care. This summary normalizes information from multiple sources, and as a consequence, information in this document may materially change the coding, format and clinical context of patient data. In addition, data may be omitted in some cases. CLINICAL DECISIONS SHOULD BE BASED ON THE PRIMARY CLINICAL RECORDS. [facility] [facility]. provides no warranty or guarantee of the accuracy or completeness of information in this document.
[2023-04-05 10:02] LABS: Absolute Lymphocyte Count 1.81 X10^3/uL (0.83-4.51); Absolute Neutrophil Count 3.2 X10^3/uL (2.0-7.7); Basophil# 0.03 X10^3/uL; Basophil% 0.4 % (0-1); Eosinophil# 1.11 X10^3/uL; Eosinophils% 16.3 % (0-5); Hematocrit 43.6 % (37-47); Hemoglobin 13.9 g/dL (12.0-15.0); Lymphocyte # 1.81 X10^3/ul (0.83-4.51); Lymphocyte % 26.5 % (19-41); Mean Corp Hgb Conc 31.9 g/dL (32-36); Mean Corpuscular Hgb 31.2 pg (27.0-32.0); Mean Platelet Vol. 11.1 fl (6.2-12.0); Monocyte# 0.64 X10^3/uL; Monocyte% 9.4 % (0-10); NRBC Flagged by Analyzer 0 % (0-5); Neutrophil # 3.23 X10^3/uL (2.7-7.7); Neutrophil % 47.3 % (47-70); Platelet Count 286 K/mm3 (150-450); RBC Distribution Width CV 12.7 % (11.6-14.6); RBC Distribution Width SD 45.7 fl (35.1-43.9); Red Blood Count 4.45 M/mm3 (4.2-5.4); White Blood Count 6.8 K/mm3 (4.4-11.0)
[2023-04-05 10:27] LABS: Vitamin B12 1105 pg/mL (211-911); Vitamin D,25 Hydroxy 46.1 ng/mL
[2023-04-05 11:46] LABS: ALB/GLOB Ratio 0.9 RATIO (0.9-2.4); AST(SGOT) 25 U/L (15-37); Alanine Aminotransfer ALT/SGPT 35 U/L (13-56); Albumin, Serum 3.4 g/dL (3.2-5.0); Alkaline Phosphatase 92 U/L (45-117); Anion Gap 4 (5-15); BUN 13 mg/dL (7-18); BUN/Creat Ratio 13.8 RATIO (10-20); Calcium,Total 9.6 mg/dL (8.5-10.1); Chloride 110 mmol/L (98-107); Cholesterol 176 mg/dL (200); Creatinine, Serum 0.94 mg/dL (0.55-1.02); EST Glomerular Filtration Rate 65 mL/min (>60); Est Glom Filt Rate - Afr Amer 79 mL/min (>60); Free T3 2.5 pg/mL (2.18-3.98); Globulin 3.8 g/dL (2.2-4.2); Glucose 104 mg/dL (74-106); High Density Lipoprotein 55 mg/dL; Potassium 4.8 mmol/L (3.5-5.1); Protein, Total 7.2 g/dL (6.4-8.2); Sodium Level 140 mmol/L (136-145); T4 Free Direct 1.26 ng/dL (0.76-1.46); Thyroid Stim Hormone (TSH) 0.55 uIU/mL (0.358-3.74); Triglycerides 110 mg/dL; Very Low Density Lipoprotein 22 mg/dL (5-40)
== END | disposition home or self-care (01) ==
PROVIDERS: PCP Family Medicine; Referring Provider Family Medicine; Visit Provider Family Medicine
DX: E03.9 Hypothyroidism, unspecified (principal); E78.5 Hyperlipidemia, unspecified; E55.9 Vitamin D deficiency, unspecified; E53.8 Deficiency of other specified B group vitamins; Z51.81 Encounter for therapeutic drug level monitoring
CPT/HCPCS: 36415; 80053; 80061; 82306; 82607; 84439; 84443; 84481; 85025

== ENCOUNTER → 2023-05-10 | Outpatient (CLI) | payer OTHER, SELFPAY ==
--- NOTE | 2023-05-10 07:54 | US_ITS ---
STUDY: ULTRASOUND BREAST - RIGHT REASON FOR EXAM: Female, 58 years old. Six-month follow-up following biopsy. TECHNIQUE: Axial and longitudinal images of the RIGHT breast were performed with a high resolution ultrasound transducer. # OF IMAGES: 16 COMPARISON: Comparison is made with prior study October 27, 2022. FINDINGS: RIGHT Breast: Stable 6 mm x 5 mm x 5 mm well-defined hypoechoic nodule with a fatty hilum at the 10:00 position of the breast at 9 cm from nipple. This most likely represents a small lymph node. US/Breast Limited Unilateral IMPRESSION: Stable examination. ASSESSMENT CATEGORY: BIRADS Category 2: Benign. A letter regarding these results will be sent to the patient by the facility within 30 days. Electronically Signed: Jesus Chu MD at 15:44 EDT ,
--- OUTSIDE RECORDS SUMMARY | 2023-05-10 08:10 | XMS RPT_ITS | CCD ---
Author Name Unknown Address [id number] [place] [address] Organization [facility] Care Team Providers Care Laundry Supervisor Name Role Phone NESTOR CARSON Unavailable Unavailable LAMONTEANDER, PETER Unavailable Unavailable REQUEST, NONE LISTED Unavailable Unavailable LAMONTEANDER, PETER Unavailable Unavailable HIGHLANDER, PETER Unavailable Unavailable HIGHLANDER, PETER Unavailable Unavailable REQUEST, NONE LISTED Unavailable Unavailable SHANI GUTIERREZ V Unavailable Unavailable HIGHLANDER, NESTOR Unavailable Unavailable AGNICKOLAS MALIK Unavailable Unavailable HIGHLANDER, PETER Unavailable Unavailable HIGHLANDER, PETER Unavailable Unavailable HIGHLANDER, PETER Unavailable Unavailable Malys DO, Marli Primary Care Provider No, Physician Primary Care Provider Unavailabl e Henrique Pham DO Unavailable Malys DO, Marli A Primary Care Provider Malys DO, Marli A Primary Care Provider Ruth Ortega MD Unavailable [phone] Henrique Pham DO Unavailable Malys DO, Marli A Primary Care Provider [phone] KOLLURI, JOSE Admitting Unavailable KOLLURI, JOSE Attending Unavailable MALYS, MARLI A Primary Care Unavailable MALYS, MARLI A Primary Care Unavailable TATY, JOSE Attending Unavailable HENRIQUE PHAM Admitting Unavailable HENRIQUE PHAM Referring Unavailable JOHN MASSEY Attending Unavailabl e HENRIQUE PHAM Referring Unavailable MALYS, MRALI Primary Care Unavailable JOSE GARCIA Referring Unavailable [...] Primary Care Provider Ruth Ortega MD Unavailable [phone] MALYS, MARLI A Primary Care Unavailable MALYS, MARLI A Primary Care Unavailable ATHY, DERRICK R Referring Unavailable MALYS, MARLI A Primary Care Unavailable MALYS, MARLI A Primary Care Unavailable Allergies Allergy Classification Reported Allergen(s) Allergy Type Date of Onset Reaction(s) Facility (8 sources) Other; Translations: [OTHER] Propensity to adverse reactions 2 Other (See Comments) [facility] Medications Current Medications Medication Drug Class(es) Dates [...] 08-13-2021 08-13-2021 Chronic Other aftercare (1 source) nursing home (current) use of anticoagulants; Translations: [BRANCH OFFICER CURRNT USE ANTICOAGULANTS] Onset: 10-20-2017 Episodic Other aftercare (1 source) Long-term current use of anticoagulant; Translations: [nursing home (current) use of anticoagulants] 10-01-2022 Episodic Other [...] Translations: [Adverse effect of other antacids and cixn-gkezlrd-gfex etion drugs, initial encounter] Onset: 10-19-2021 Episodic [...] 97.5 [degF] Derrick Athy PA-C Work Phone: [facility] 05-15-2022 10:43-0400 Body weight 118.93 kg Derrick Athy PA-C Work Phone: [facility] 05-15-2022 10:43-0400 Diastolic blood pressure 86 mm[Hg] Derrick Athy PA-C Work Phone: [facility] 05-15-2022 10:43-0400 Heart rate 99 /min Derrick Athy PA-C Work Phone: [facility] 05-15-2022 10:43-0400 Respiratory rate 20 /min Derrick Athy PA-C Work Phone: [facility] 05-15-2022 10:43-0400 SaO2% (BldA) [Mass fraction] 96 % Derrick Athy PA-C Work Phone: [facility] 05-15-2022 10:43-0400 Systolic blood pressure 128 mm[Hg] Derrick Athy PA-C Work Phone: [facility] 04-01-2022 11:43-0500 Body temperature 97.39 [degF] Terra Cramer MOBILE PRODUCT MANAGER Work Phone: [facility] 04-01-2022 11:43-0500 Diastolic blood pressure 88 mm[Hg] Terra Cramer MOBILE PRODUCT MANAGER Work Phone: [facility] 04-01-2022 11:43-0500 Heart rate 92 /min Terra Cramer MOBILE PRODUCT MANAGER Work Phone: [facility] 04-01-2022 11:43-0500 Respiratory rate 18 /min Terra Cramer MOBILE PRODUCT MANAGER Work Phone: [facility] 04-01-2022 11:43-0500 Systolic blood pressure 138 mm[Hg] Terra Cramer MOBILE PRODUCT MANAGER Work Phone: [facility] 01-14-2022 09:29-0500 Diastolic blood pressure 86 mm[Hg] Jose Ho MD Work Phone: [facility] 01-14-2022 09:29-0500 Heart rate 85 /min Jose Ho MD Work Phone: [facility] 01-14-2022 09:29-0500 Systolic blood pressure 149 mm[Hg] Jose Ho MD Work Phone: [facility] 01-14-2022 09:28-0500 Body height 167.6 cm Jose Ho MD Work Phone: [facility] 01-14-2022 09:28-0500 Body mass index (BMI) [Ratio] 42.93 kg/m2 Jose Ho MD Work Phone: [facility] 01-14-2022 09:28-0500 Body weight 120.66 kg Jose Ho MD Work Phone: [facility] 12-05-2021 10:45-0400 Body temperature 98.49 [degF] Feliciano Lambert TOOL REPAIRER.MOBILE PRODUCT MANAGER Work Phone: [facility] 12-05-2021 10:45-0400 Body weight 122.47 kg Feliciano Lambert TOOL REPAIRER.MOBILE PRODUCT MANAGER Work Phone: [facility] 12-05-2021 10:45-0400 Diastolic blood pressure 82 mm[Hg] Feliciano Lambert TOOL REPAIRER.MOBILE PRODUCT MANAGER Work Phone: [facility] 12-05-2021 10:45-0400 Heart rate 100 /min Feliciano Lambert TOOL REPAIRER.MOBILE PRODUCT MANAGER Work Phone: [facility] 12-05-2021 10:45-0400 Respiratory rate 18 /min Feliciano Lambert TOOL REPAIRER.MOBILE PRODUCT MANAGER Work Phone: [facility] 12-05-2021 10:45-0400 SaO2% (BldA) [Mass fraction] 96 % [facility]o [facility] TOOL REPAIRER.MOBILE PRODUCT MANAGER Work Phone: [facility] 12-05-2021 10:45-0400 Systolic blood pressure 132 mm[Hg] Feliciano Lambert TOOL REPAIRER.MOBILE PRODUCT MANAGER Work Phone: [facility] 10-19-2021 13:34-0400 Body height 167.6 cm John Massey MD Work Phone: [facility] 10-19-2021 13:34-0400 Body mass index (BMI) [Ratio] 45.52 kg/m2 John Massey MD Work Phone: [facility] 10-19-2021 13:34-0400 Body weight 127.91 kg John Massey MD Work Phone: [facility] 10-19-2021 13:34-0400 Heart rate 102 /min John Massey MD Work Phone: [facility] 10-19-2021 13:34-0400 Respiratory rate 16 /min John Massey MD Work Phone: [facility] 10-19-2021 13:34-0400 SaO2% (BldA) [Mass fraction] 97 % John Massey MD Work Phone: [facility] 10-19-2021 10:15-0400 Diastolic blood pressure 81 mm[Hg] Jose Ho MD Work Phone: [facility] 10-19-2021 10:15-0400 Heart rate 80 /min Jose Ho MD Work Phone: [facility] 10-19-2021 10:15-0400 Systolic blood pressure 143 mm[Hg] Jose Ho MD Work Phone: [facility] 10-19-2021 10:12-0400 Body height 167.6 cm Jose Ho MD Work Phone: [facility] 10-19-2021 10:12-0400 Body mass index (BMI) [Ratio] 43.74 kg/m2 Jose Ho MD Work Phone: [facility] 10-19-2021 10:12-0400 Body weight 122.92 kg Jose Ho MD Work Phone: [facility] 08-17-2021 08:13-0400 Body weight 127.91 kg Henrique Pham DO Work Phone: [facility] 08-17-2021 08:13-0400 Diastolic blood pressure 100 mm[Hg] Henrique Pham DO Work Phone: [facility] 08-17-2021 08:13-0400 Heart rate 73 /min Henrique Pham DO Work Phone: [facility] 08-17-2021 08:13-0400 SaO2% (BldA) [Mass fraction] 96 % Henrique Pham DO Work Phone: [facility] 08-17-2021 08:13-0400 Systolic blood pressure 130 mm[Hg] Henrique Pham DO Work Phone: [facility] Encounters Encounter Date Encounter Type Care Provider Facility Start: 10-01-2022 End: 10-01-2022 ambulatory MARLI A MOJGANYS Facility:[facility] Start: 10-01-2022 End: 10-01-2022 Patient encounter procedure Derrick Pitts PA-C Work Phone: [facility] Procedures Date Procedure Procedure Detail Performing Clinician Start: 01-06-2022 EXTERNAL LAB SCAN Jose Ho MD Work Phone: Start: 08-26-2021 CHROMOGRANIN A (CGA) , MANUAL ENTER Historical Provider Start: 09-04-2014 Mammography Feliciano florence TOOL REPAIRER.MOBILE PRODUCT MANAGER Work Phone: Start: 08-01-2014 Colonoscopy Feliciano florence TOOL REPAIRER.MOBILE PRODUCT MANAGER Work Phone: Plan of Treatment Date Care Activity Detail Author Start: 08-01-2024 Colonoscopy COLONOSCOPY [facility] Start: 08-01-2024 COLORECTAL CANCER SCREENING COLORECTAL CANCER SCREENING [facility] Start: 04-29-2024 Tetanus vaccination [facility] Start: 04-29-2024 Urine microalbumin profile DTAP,TDAP,TD (2 - Td or Tdap) [facility] Start: 10-28-2022 Influenza vaccination [facility] Start: 05-27-2022 End: 06-29-2022 Ultrasound duplex venous leg left Ultrasound duplex venous leg left Vascular Ultrasound Routine Varicose veins of lower extremities with complications, bilateral Chronic venous insufficiency Expected: 05/27/2022, Expires: 06/29/2022 [facility] Work Phone: Immunizations Immunization Date Immunization Notes Care Provider Fa cility 05-20-2021 zoster vaccine recombinant John Massey MD Work Phone: [facility] 05-20-2021 zoster vaccine, unspecified formulation John Massey MD Work Phone: [facility] 02-12-2021 COVID-19 vaccine, mRNA, Moderna, 50 mcg/0.25 mL booster John Massey MD Work Phone: [facility] 06-11-2020 COVID-19 vaccine, mRNA, Moderna, 100 mcg/0.5 mL John Massey MD Work Phone: [facility] 05-14-2020 COVID-19 vaccine, mRNA, Moderna, 100 mcg/0.5 mL John Massey MD Work Phone: [facility] 04-29-2014 tetanus toxoid, reduced diphtheria toxoid, and acellular pertussis vaccine, adsorbed John Massey MD Work Phone: [facility] 06-26-2013 measles, mumps and rubella virus vaccine John Massey MD Work Phone: [facility] 12-26-2012 influenza virus vaccine, unspecified formulation Andreia Sewell RN [facility] Payers Date Payer Category Payer Private Health Insurance [id number] 2011 Private Health Insurance [id number] 1965 Unknown [id number] 2.16. [id number] 1965 Unknown [id number] 2.16. [id number] 1965 Unknown [id number] 2.16. [id number] 1965 Unknown [id number] 2.16. [id number] 1964 Unknown [id number] 2.16. [id number] 1964 Unknown [id number] 2.16. [id number] 1964 Unknown [id number] 2.16. [id number] 1964 Unknown [id number] 2.16. [id number] 1964 Unknown [id number] 2.16. [id number] 1964 Unknown [id number] 2.16. [id number] 1964 Unknown [id number] 2.16. [id number] 1965 Unknown [id number] 2.16. [id number] 1965 Unknown [id number] 2.16. [id number] 1960 Private Health Insurance [id number] Social History Date Type Detail Facility Start: 08-17-2021 End: 12-05-2021 Tobacco smoking status NHIS Ex-smoker [facility] End: 08-27-2004 History of tobacco use Cigarette Smoker [facility] Start: 1965 Sex Assigned At Not on file O [facility] Tobacco smoking status [facility] Tobacco smoking consumption unknown [facility] End: 08-27-2004 History of tobacco use Current smoker [facility] Start: 10-18-2021 End: 12-05-2021 Tobacco use and exposure Smokeless tobacco non-user [facility] Start: 10-19-2021 End: 04-01-2022 Alcohol intake Current drinker of alcohol (finding) [facility] Start: 10-19-2021 End: 05-15-2022 Alcohol intake [facility] Start: 10-09-2021 End: 03-23-2022 Exposure to SARS-CoV-2 (event) Not sure [facility] Start: 12-05-2021 End: 05-15-2022 Alcohol intake Current non-drinker of alcohol (finding) [facility] Start: 04-29-2014 Alcohol Comment cut out daily wine at night 07/2013. Hx of over use. [facility] Start: 05-15-2022 Tobacco use panel [facility] Clinical Notes 09-14-2012 to 10-01-2022 Derrick Pitts PA-C - 10/01/2022 3:07 PM Ilda Pitts PA-C - 05/15/2022 12:04 PM Malou Cramer CNP - 04/01/2022 12:21 PM Jony Buck RN - 04/01/2022 11:38 AM ESTPatient Instructions Note Date & Type Note Facility 10-01-2022 Note HNO ID: [id number] Author: Derrick Pitts PA-C Service: ? Author Type: Physician Ed Case Manager Type: Progress Notes Filed: 10/01/2022 3:09 PM [...] the emergency department. She will go to [facility] ED. Denies any weakness numbness, severe headache. [facility] 10-01-2022 History of Present illness Narrative Presents [...] the emergency department. She will go to [facility] ED. Denies any weakness numbness, severe headache. documented in this encounter [facility] 05-16-2022 Note HNO ID: [id number] Author: RT Cecilia(Jhon) Service: Nuclear Medicine Author [...] RT Cecilia(R) May 16, 2022 4:49 PM [facility] 05-15-2022 Note HNO ID: [id number] Author: Derrick Pitts PA-C Service: ? Author Type: Physician Ed Case Manager Type: Progress Notes Filed: 05/15/2022 12:07 PM Note Text: This note was created using Training [employer]visor[employer]. Subjective Marli Pantoja is a 57 year [...] ear normal. Nose (more content not included)... [facility] 05-15-2022 History of Present illness Narrative This note was created using [employer]. Subjective Marli Pantoja is a 57 year [...] DVT of lower extremity (deep venous thrombosis) ([facility]) 2010 left leg 07/2012 right leg Heart burn High cholesterol Morbid obesity (HCC) Obstructive sleep apnea 2013 Pulmonary embolism ([facility]) DVT left leg with PE in 2009 [...] Derrick Pitts PA-C documented in this encounter [facility] 04-01-2022 History of Present illness Narrative Images from the original note were not included. VASCULAR MEDICINE CLINIC NOTE Patient Name: Marli Pantoja MR #: [id number] : 1965 Physicians: Marli Weiss DO (Family); [...] with complications, bilateral History of DVT on residential AC: She is doing well following her [...] this patient. The note was dictated using [employer] dictation system. The voice recognition software is inherently subject to errors including those of syntax and sound-alike substitutions which may escape proofreading. In such instances, original meaning may be extrapolated by contextual derivation. Terra Cramer, DNP, TOOL REPAIRER, ACNP- ---- Physical Examination: Vital Signs: BP [...] Past Medical History: Diagnosis Date Clotting disorder ([facility]) Feb 2009 DVT-Double PE Depression DVT (deep venous thrombosis) ([facility]) GERD (gastroesophageal reflux disease) Prior to 2004? Hyperlipidemia Hyperthyroidism Leg swelling Lymphedema Pulmonary embolism ([facility]) Venous insufficiency of both lower extremities Past [...] Score - 4 documented in this encounter [facility] 03-28-2022 Evaluation + Plan note Associated Problem(s): Varicose veins of lower extremities with complications, bilateral [facility] 03-28-2022 Miscellaneous Notes Associated Problem(s): Varicose veins of lower extremities with complications, bilateral documented in this encounter [facility] 03-28-2022 History of Present illness Narrative Images from the original note were not included. LEFT GREAT SAPHENOUS VEIN ENDOVENOUS RADIOFREQUENCY ABLATION (VENEFIT) PROCEDURE NOTE Name: Marli Pantoja : 1965 Date of Procedure: 03/28/2022 PERFORMED BY: Jose Ho MD Ed Case Manager: None ANESTHESIA: 0.1% lidocaine in an ultrasound guided subfascial perivenous tumescent technique. Indication: Varicose veins of lower extremities with complications, bilateral Past Medical History: Pleasant 56-year-old female with history of varicose veins with complications and history of diffuse rash left lower extremity greater than the right lower extremity. Mast cell activation syndrome was considered but [facility] allergy immunology experts felt that this [...] slightly enlarge the skin opening. A 7 Maori x 7 cm sheath was introduced over [...] Score - 11 documented in this encounter [facility] 03-28-2022 Instructions Alma Delia Tadeo RN - [...] procedure, which can be treated by using drfq-rxi-ksxjcez (non-aspirin) pain relievers like Tylenol, Advil, or [...] or drainage please call the nurse at [phone] Monday - Monday 8:00am to 4:00pm. documented in this encounter [facility] 01-14-2022 Instructions Malik Alvarado RN - 01/14/2022 9:55 AM EST If you have any questions or concerns please call Dr Ho's Ground Service Equipment Mechanic: Malik MAZARIEGOS at [phone]. Sarna for the itching documented in this encounter [facility] 01-14-2022 History of Present illness Narrative Images from the original note were not included. VASCULAR MEDICINE CLINIC NOTE Patient Name: Marli Pantoja MR #: [id number] : 1965 Physicians: Marli Weiss DO (Family); [...] syndrome and she is going to see production gear cutter today for further work-up. She states that the itching is unbearable and sometimes the skin is raw. She states that the compression therapy makes this worse. She does not have any history of DVT or pulmonary embolism or family history of the same or varicose veins. She had a venous insufficiency study at [facility] and this demonstrated bilateral great saphenous vein [...] ankle. She states that she saw the production gear cutter at the [facility] and she was told that this [...] the following - Left GSV Radiofrequency (cpt -92255) We discussed the risks, benefits and alternatives [...] this patient. The note was dictated using [employer] dictation system. The voice recognition software is [...] Past Medical History: Diagnosis Date Clotting disorder ([facility]) Feb 2009 DVT-Double PE Depression DVT (deep venous thrombosis) ([facility]) GERD (gastroesophageal reflux disease) Prior to 2004? Hyperlipidemia Hyperthyroidism Leg swelling Lymphedema Pulmonary embolism ([facility]) Venous insufficiency of both lower extremities Past [...] No current facility-administered medications for this visit. City Route Driver: No Review of Systems Constitutional: Negative for [...] is not nervous/anxious. documented in this encounter [facility] 01-14-2022 History of Present illness Narrative Images from the original note were not included. VASCULAR MEDICINE CLINIC NOTE Patient Name: Marli Pantoja MR #: [id number] : 1965 Physicians: Marli Weiss DO (Family); [...] syndrome and she is going to see production gear cutter today for further work-up. She states that [...] She had a venous insufficiency study at [facility] and this demonstrated bilateral great saphenous vein [...] ankle. She states that she saw the production gear cutter at the [facility] and she was told that this [...] the following - Left GSV Radiofrequency (cpt -58025) We discussed the risks, benefits and alternatives [...] this patient. The note was dictated using [employer] dictation system. The voice recognition software is inherently subject to errors including those of syntax and sound-alike substitutions which may escape proofreading. In such instances, original meaning may be extrapolated by contextual derivation. Jose Ho MD, RVT, [facility]. ---- Physical Examination: Vital Signs: BP (!) [...] Past Medical History: Diagnosis Date Clotting disorder ([facility]) Feb 2009 DVT-Double PE Depression DVT (deep venous thrombosis) ([facility]) GERD (gastroesophageal reflux disease) Prior to 2004? Hyperlipidemia Hyperthyroidism Leg swelling Lymphedema Pulmonary embolism ([facility]) Venous insufficiency of both lower extremities Past [...] No current facility-administered medications for this visit. City Route Driver: No Review of Systems Constitutional: Negative for [...] is not nervous/anxious. documented in this encounter [facility] 12-05-2021 Influenza virus A and B RNA and SARS-CoV-2 (COVID-19) N gene panel GIORGI+probe (Resp) COVID 19 RESULT: SARS-CoV-2 (Agent of COVID-19) Not Detected by RT-PCR or equivalent method. kristy [id number] (RACHEL)_EUA This test was developed and its performance characteristics determined by [facility]'s [facility] [place]. This test has been authorized by FDA under an Emergency Use Authorization (EUA). This test has been validated in accordance with the FDA's Guidance Document Policy for Diagnostics Testing in Laboratories Certified to Perform High Complexity Testing under CLIA prior to Emergency use Authorization for Coronavirus Disease 2019 during the Public Health Emergency issued on April 27, 2019. Test performed by [facility], [facility] [place], [address] [place] [address]. INFLUENZA A PCR: Negative for Influenza A by RT-PCR INFLUENZA B PCR: Negative for Influenza B by RT-PCR [facility] documented as of this encounter (statuses as of 12/05/2021) [facility]07-19-2013 History of Past illness Narrative* Problem Noted Date Resolved Date Acute venous embolism and th rombosis of unspecified deep vessels of lower extremity 09/14/2012 10/29/2012 Peripheral vertigo, unspecified 12/21/2011 05/01/2017 documented as of this encounter (statuses as of 05/15/2022) [facility] History of Past illness Narrative* Problem Noted Date Resolved Date Acute venous embolism and th rombosis of unspecified deep vessels of lower extremity 09/14/2012 10/29/2012 Peripheral vertigo, unspecified 12/21/2011 05/01/2017 documented as of this encounter (statuses as of 06/07/2022) [facility] History of Past illness Narrative* Problem Noted Date Diagnosed Date Resolved Date Acute venous embolism and th rombosis of unspecified deep vessels of lower extremity 09/14/2012 10/29/2012 Peripheral vertigo, unspecified 12/21/2011 05/01/2017 documented as of this encounter (statuses as of 10/01/2022) [facility] note* Diagnosis Leg swelling- Primary Swelling of limb Chronic venous insufficiency Unspecified venous (peripheral) insufficiency Lymphedema Other lymphedema Venous stasis dermatitis of both lower extremities Lipoedema Edema Pruritus of skin Unspecified pruritic disorder [facility] Diagnosis Leg swelling- Primary Swelling of limb Chronic venous insufficiency Unspecified venous (peripheral) insufficiency Lymphedema Other noninfectious lymphedema Venous stasis dermatitis of both lower extremities [facility] Pruritus of skin- Primary Unspecified pruritic disorder [facility] Diagnosis Pruritus of skin- Primary Unspecified pruritic disorder [facility]* Diagnosis Varicose veins of lower extremities with complications, bilateral- Primary Leg swelling Swelling of limb Chronic venous insufficiency Unspecified venous (peripheral) insufficiency Lymphedema Other noninfectious lymphedema Venous stasis dermatitis of both lower extremities [facility] Diagnosis Adverse effect of proton pump inhibitor- Primary Venous stasis dermatitis of both lower extremities Side effect of medication Pruritic disorder Unspecified pruritic disorder [facility] Diagnosis Viral illness- Primary Unspecified viral infection, in conditions classified elsewhere and of unspecified site documented in this encounter [facility]* Diagnosis Chronic venous insufficiency- Primary Unspecified venous (peripheral) insufficiency Varicose veins of lower extremities with complications, bilateral Pruritus Unspecified pruritic disorder [facility] Diagnosis Chronic venous insufficiency- Primary Unspecified venous (peripheral) insufficiency Varicose veins of lower extremities with complications, bilateral Pruritus Unspecified pruritic disorder [facility] Diagnosis Chronic venous insufficiency- Primary Unspecified venous (peripheral) insufficiency Varicose veins of lower extremities with complications, bilateral [facility] Diagnosis Varicose veins of lower extremities with complications, bilateral- Primary Chronic venous insufficiency Unspecified venous (peripheral) insufficiency Pruritus Unspecified pruritic disorder documented in this encounter [facility] note* Diagnosis Sinobronchitis- Primary Unspecified sinusitis (chronic) COVID-19 documented in this encounter [facility] note* Diagnosis Closed head injury, initial encounter- Primary Current use of residential anticoagulation Long-term (current) use of anticoagulants documented in this encounter [facility] for referral (narrative)* Consultation (Routine) - Authorized Specialty Diagnoses / Procedures Referred By Selena wagner Referred To Contact Diagnoses Leg swelling Chronic venous insufficiency Lymphedema Venous stasis dermatitis of both lower extremities Henrique Pham DO [address] [place] [address] Jose Ho MD [address] [address] Referral ID Status Reason Start Date Expiration Date V isits Requested Visits Authorized [id number] Authorized 08/18/2021 08/18/2022 1 1 [facility] for referral (narrative)* Consultation (Routine) - New Request Specialty Diagnoses / Procedures Referred By Selena wagner Referred To Contact Allergy & Immunology Diagnoses Pruritus of skin Henrique Pham DO [address] [place] [address] Referral ID Status Reason Start Date Expiration Date V isits Requested Visits Authorized [id number] New Request 09/20/2021 10/15/2022 1 1 [facility] Summary Purpose Family History No Family History Records FoundNo Family History Records FoundNo Family History Records FoundNo Family History Records FoundNo Family History Records FoundNo Family History Records Found Advance Directives No Advanced Directives Records FoundDocuments on File Type Date Recorded Patient Plant Clerk Expl anation Advance Directive(s) 05/02/2017 12:40 PM Advance Directive(s) 08/01/2014 7:00 AM Documents on File Type Date Recorded Patient Plant Clerk Expl anation Advance Directives and Living Will 01/14/2022 Reason for Referral Specialty Diagnoses / Procedures Referred By Contac t Referred To Contact Diagnoses Leg swelling Chronic venous insufficiency Lymphedema Venous stasis dermatitis of both lower extremities Lipoedema Procedures VASC DUPLEX VENOUS WITH REFLUX BILATERAL LOWER Henrique Pham, DO [address] [place] [address] Referral ID Status Reason Start Date Expiration Date V isits Requested Visits Authorized [id number] New Request 08/17/2021 09/11/2022 1 1 Specialty Diagnoses / Procedures Referred By Contac t Referred To Contact Diagnoses Leg swelling Chronic venous insufficiency Lymphedema Venous stasis dermatitis of both lower extremities Henrique Pham, DO [address] [place] [address] [place] [address] [place] [address] Referral ID Status Reason Start Date Expiration Date V isits Requested Visits Authorized [id number] New Request 08/17/2021 09/11/2022 1 1 Specialty Diagnoses / Procedures Referred By Contac t Referred To Contact Cardiology Diagnoses Varicose veins of lower extremities with complications, bilateral Procedures Ultrasound venous insufficiency exam Jose Ho MD [address] [place] [address] Referral ID Status Reason Start Date Expiration Date V isits Requested Visits Authorized [id number] Authorized 10/20/2021 10/20/2022 1 1 Specialty Diagnoses / Procedures Referred By Contac t Referred To Contact Cardiology Diagnoses Chronic venous insufficiency Varicose veins of lower extremities with complications, bilateral Procedures Ultrasound [place] [address] [place] [address] Referral ID Status Reason Start Date Expiration Date V isits Requested Visits Authorized [id number] Authorized 03/28/2022 03/28/2023 1 1 Specialty Diagnoses / Procedures Referred By Contac t Referred To Contact Cardiology Diagnoses Varicose veins of lower extremities with complications, bilateral Chronic venous insufficiency Procedures Ultrasound duplex venous leg left Terra Cramer, MOBILE PRODUCT MANAGER [address] [place] [address] Referral ID Status Reason Start Date Expiration Date V isits Requested Visits Authorized [id number] Pending Review 05/27/2022 05/27/2023 1 1 Health Concerns Infection Onset Date Last Indicated Resolved Time COVID-19 Rule-Out 12/05/2021 12/05/2021 Additional Source Comments INFORMATION SOURCE (unrecogn ized section and content) DATE CREATED AUTHOR AUTHOR'S ORGANIZ ATION [facility]11[facility] DATE CREATED AUTHOR AUTHOR'S ORGANIZ ATION 01/19/2022 [facility] DATE CREATED AUTHOR AUTHOR'S ORGANIZ ATION 03/23/2022 [facility] DATE CREATED AUTHOR AUTHOR'S ORGANIZ ATION 04/27/2022 [facility] DATE CREATED AUTHOR AUTHOR'S ORGANIZ ATION 10/01/2022 [facility] Reason for Visit (unrecogniz ed section and content) Specialty Diagnoses / Procedures Referred By Contac t Referred To Contact Cardiovascular Medicine Diagnoses Venous stasis dermatitis, unspecified laterality Lymphedema Jose Garcia MD [address] [place] [address] Henrique Pham DO [address] [place] [address] Referral ID Status Reason Start Date Expiration Date V isits Requested Visits Authorized [id number] New Request 06/19/2021 07/14/2022 1 1 Reason Onset Date Comments Results 09/17/2021 Reason Comments Consult Referral/ Leg Swelli ng, Chronic Specialty Diagnoses / Procedures Referred By Contac t Referred To Contact Cardiology Diagnoses Leg swelling Chronic venous insufficiency Lymphedema Venous stasis dermatitis of both lower extremities Henrique Pham DO [address] [place] [address] Jose Ho MD [address] [place] [address] Referral ID Status Reason Start Date Expiration Date V isits Requested Visits Authorized [id number] Pending Review 08/18/2021 08/18/2022 1 1 Reason Comments New Patient New Immunology visit , 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 Specialty Diagnoses / Procedures Referred By Contac t Referred To Contact Allergy & Immunology Diagnoses Pruritus of skin Henrique Pham, DO [address] [place] [address] Referral ID Status Reason Start Date Expiration Date V isits Requested Visits Authorized [id number] New Request 09/20/2021 10/15/2022 1 1 Reason Comments Med Change Request Reason Comments Chest Congestion cough and sore throa t x 5 days Reason Comments Establish Care Reason Comments Procedure Specialty Diagnoses / Procedures Referred By Contac t Referred To Contact Wound Care Diagnoses Varicose veins of bilateral lower extremities with other complications Procedures ENDOVENOUS ABLATION Jose Ho MD [address] [place] [address] [facility] [place] [address] Referral ID Status Reason Start Date Expiration Date Visits Re quested Visits Authorized [id number] Closed 01/23/2022 07/22/2022 1 1 Reason Comments vein follow up Reason Comments Cough Chest congestion, wh eezing x1 month Reason Comments Refill Request Care Teams (unrecognized sec tion and content) Laundry Supervisor Relationship Specialty Start Date End Date No, Physician [facility] PCP - General 08/17/21 Hernique Pham, DO [address] [place] [address] Consulting Physician Vascular Medicine 08/17/21 Laundry Supervisor Relationship Specialty Start Date End Date Marli Weiss DO [address] [place] [address] PCP - General Family Medicine 06/21/21 Laundry Supervisor Relationship Specialty Start Date End Date Marli Weiss DO [address] [place] [address] PCP - General Family Medicine 06/21/21 Laundry Supervisor Relationship Specialty Start Date End Date Marli Weiss DO [address] [place] [address] [place] [address] PCP - General Family Medicine 10/19/21 Henrique Pham DO [address] [place], [place] [id number] Consulting Physician Vascular Medicine 08/17/21 Laundry Supervisor Relationship Specialty Start Date End Date Marli Weiss DO [address] [place] [address] PCP - General Family Medicine 06/21/21 Laundry Supervisor Relationship Specialty Start Date End Date Marli Weiss DO [address] [place] [address] PCP - General Family Medicine 06/21/21 Laundry Supervisor Relationship Specialty Start Date End Date Marli Weiss DO [address] [place] [address] PCP - General Family Medicine 04/19/16 Ruth rOtega MD [address] [place] [address] Primary Staff Physician Cardiology 05/15/18 Laundry Supervisor Relationship Specialty Start Date End Date Marli Weiss DO [address] [place] [address] [place] [address] PCP - General Family Medicine 10/19/21 Henrique Pham DO [address] [place] [address] Consulting Physician Vascular Medicine 08/17/21 Laundry Supervisor Relationship Specialty Start Date End Date Tara Weisstejinder Cabrera DO [address] [place] [address] [place] [address] PCP - General Family Medicine 10/19/21 Henrique Pham DO [address] [place] [address] Consulting Physician Vascular Medicine 08/17/21 Laundry Supervisor Relationship Specialty Start Date End Date MojganmichealMarli DO [address] [place] [address] [place] [address] PCP - General Family Medicine 10/19/21 Henrique Pham DO [address] [place] [address] Consulting Physician Vascular Medicine 08/17/21 Laundry Supervisor Relationship Specialty Start Date End Date Marli Weiss DO [address] [place] [address] PCP - General Family Medicine 04/19/16 Ruth Ortega MD [address] [place] [address] Primary Staff Physician Cardiology 05/15/18 Laundry Supervisor Relationship Specialty Start Date End Date MojganMarli burton DO [address] [address] PCP - General Family Medicine 04/19/16 Ruth Ortega MD [address] [place] [place] [address] Primary Staff Physician Cardiology 05/15/18 Laundry Supervisor Relationship Specialty Start Date End Date Abhishek Marli Cabrera [address] [facility] [place] [address] PCP - General Family Medicine 04/19/16 Ruth Ortega MD [address] [place] [address] Primary Staff Physician Cardiology 05/15/18 Source Comments (unrecognize d section and content) In the event this informatio n is protected by the Federal Confidentiality of Alcohol and Drug Abuse Patient Records regulations: The Federal rules restrict any use of the information to criminally investigate or prosecute any alcohol or drug abuse patient.[facility] the event this information is protected by the Federal Confidentiality of Alcohol and Drug Abuse Patient Records regulations: The Federal rules restrict any use of the information to criminally investigate or prosecute any alcohol or drug abuse patient.[facility] the event this information is protected by the Federal Confidentiality of Alcohol and Drug Abuse Patient Records regulations: The Federal rules restrict any use of the information to criminally investigate or prosecute any alcohol or drug abuse patient.[facility] the event this information is protected by the Federal Confidentiality of Alcohol and Drug Abuse Patient Records regulations: The Federal rules restrict any use of the information to criminally investigate or prosecute any alcohol or drug abuse patient.[facility] FOR RECORDS PERTAINING TO PATIENTS [...] BE BASED ON THE PRIMARY CLINICAL RECORDS. [facility] [employer] [facility]. provides no warranty or guarantee of the accuracy or completeness of information in this document.
== END | disposition home or self-care (01) ==
PROVIDERS: PCP Family Medicine; Referring Provider Surgery; Visit Provider Surgery
DX: N60.09 Solitary cyst of unspecified breast (principal)
CPT/HCPCS: 76642

== ENCOUNTER → 2024-03-18 | Outpatient (CLI) | payer OTHER, SELFPAY ==
--- NOTE | 2024-03-18 14:34 | BI_ITS ---
MAMMOGRAPHY - BILATERAL SCREENING REASON FOR EXAM: Female, 58 years old. Routine annual screening examination. PERTINENT HISTORY: Non-contributory. History of prior right ultrasound-guided breast biopsy. TECHNIQUE: Digital bilateral breast jn (3D mammographic acquisition) in the CC and MLO projections. 2-D mediolateral oblique (MLO) and craniocaudad (CC) views of both breasts were obtained. CAD: Full Field Digital Mammography with Computer Added Detection was performed. COMPARISON: Comparison is made with prior studies October 25, 2022 and October 14, 2021. FINDINGS: Breast Composition: There are scattered areas of fibroglandular density. There are no dominant masses or suspicious calcifications. A tissue clip marker is once again seen within a 7 mm x 10 mm nodule in the anterior upper lateral aspect of the right breast. No other significant abnormalities are identified. There has been no significant change since the prior study. BI/SCRN MAMM (CAD)W/JN BILAT IMPRESSION: Stable bilateral screening mammogram. Yearly follow-up mammogram recommended. (A) ASSESSMENT CATEGORY: BIRADS Category 2: Benign. A letter regarding these results will be sent to the patient by the facility within 30 days. Approximately 10% of breast cancers are not detected by mammography. A normal mammogram should not delay biopsy of a clinically suspicious abnormality. [id number] Electronically Signed: Jesus Chu MD at 8:37 EST ,
== END | disposition home or self-care (01) ==
LOC: OPBI 14:33
PROVIDERS: PCP Family Medicine; Referring Provider Advanced Practice Midwife; Visit Provider Advanced Practice Midwife
DX: Z12.31 Encounter for screening mammogram for malignant neoplasm of breast (principal)
CPT/HCPCS: 77063; 77067

== ENCOUNTER 2024-05-22 09:04 | Day surgery (SDC) | payer OTHER, SELFPAY ==
[2024-05-22] VITALS (7 sets, daily range): BP systolic 126–147; BP diastolic 64–86; PULSE 64–76; RESP 16; TEMP 36.4–36.8; O2SAT 97–100; BMI 39.4
--- NOTE | 2024-05-22 09:21 | PCM.PRE.AN2 ---
ASA Classification* ASA Classification ASA Classification: 2 Assessment & Plan Anesthesia* Anesthesia Assessment Anesthesia Assessment: Discussed sedation and/or anesthesia options, risks, benefits, and alternatives with patient/parents/legal guardian/POA. Questions invited. The patient/parents/legal guardian/POA seems to understand and agrees to proceed with anesthesia plan. Reviewed the physical assessment, medical history, allergy history and patient home medications list prior to surgery/procedure/anesthetic and documented any changes. Performed airway and anesthesia risk assessments. Anesthesia Type Anesthesia Type: MAC Anesthesia Focused Assessment* Airway Assessment Mouth opens: >3 cm Mallampati Score: II Focused Labs Anesthesia Preop lab: CBC WBC 6.8 K/mm3 (4.4-11.0) 04/05/23 07:40 04/05/23 RBC 4.45 M/mm3 (4.2-5.4) 04/05/23 07:40 04/05/23 Hgb 13.9 g/dL (12.0-15.0) 04/05/23 07:40 04/05/23 Hct 43.6 % (37-47) 04/05/23 07:40 04/05/23 Plt Count 286 K/mm3 (150-450) 04/05/23 07:40 04/05/23 CHEMISTRY Potassium 4.8 mmol/L (3.5-5.1) 04/05/23 07:40 04/05/23 Sodium 140 mmol/L (136-145) 04/05/23 07:40 04/05/23 Magnesium 2.2 mg/dL (1.6-2.6) 09/12/22 13:24 09/12/22 BUN 13 mg/dL (7-18) 04/05/23 07:40 04/05/23 Creatinine 0.94 mg/dL (0.55-1.02) 04/05/23 07:40 04/05/23 Glucose 104 mg/dL (74-106) 04/05/23 07:40 04/05/23 TSH 0.55 uIU/mL (0.358-3.74) 04/05/23 07:40 04/05/23 COAG PT 14.8 SECONDS (11.7-14.9) 10/07/14 16:03 10/07/14 Pre-Assessment Diagnosis/Proposed Procedure Planned Operative Procedure(s): EGD, COLONOSCOPY Anesthesia History 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 When Was Last Pacemaker Check QUESTION #4 FULL TEXT: You/Your Family Experience fever (hyperthermia) with Anesthesia Last Oral Intake Last Oral intake: Last Oral Intake NPO since Meds taken in AM with sips of water? Meds patient instructed to take am of surgery PONV PONV - senior water resources engineer: PONV - senior water resources engineer Female Yes 05/17/24 09:10 HX of Motion Sickness No 05/17/24 09:10 HX of N/V After Surgery No 05/17/24 09:10 Non-Smoker Yes 05/17/24 09:10 Duration of Surgery greater No 05/17/24 09:10 than 60 minutes Number of Risk Factors 2 05/17/24 09:10 PONV Score Moderate Risk 05/17/24 09:10 Height & Weight Height & Weight: Anesthesia: Height & Weight Height 5 ft 6 in 04/29/24 13:06 Respiratory Assessment Respiratory Assessment - senior water resources engineer: Respiratory Tract Infection Hx - senior water resources engineer Hx Respiratory Tract Infection No 05/17/24 09:10 STOP Sleep Apnea STOP Sleep Apnea - senior water resources engineer: STOP Sleep Apnea - senior water resources engineer Hx Hypertension No 05/17/24 09:10 Hx Sleep Apnea Yes 05/17/24 09:10 CPAP Yes: UNABLE TO TOLERATE MASK 05/17/24 09:10 BIPAP No 05/17/24 09:10 Do you snore loudly (louder than talking or can be heard Do you often feel tired/ fatigued/ sleepy during daytime? Has anyone observed you stop breathing during sleep? STOP Results Positive 05/17/24 09:10 QUESTION #5 FULL TEXT : Do you snore loudly (louder than talking or can be heard through closed doors)? Tobacco Use History Tobacco Use History - senior water resources engineer: Tobacco Use History - senior water resources engineer Tobacco Use Smoking Status Former smoker 05/17/24 09:10 Hx Tobacco Use No 05/17/24 09:10 Years Smoking Packs Smoked per Day Smoking Cessation Date was No - quit smoking greater 05/17/24 09:10 within the last 15 years than 15 years ago Hx Smoking Cessation Date Hx Smoking Cessation Counseling Hematologic Medial History Hematologic Hx - senior water resources engineer: Hematologic Medical Hx - primary care md Hx of Blood Transfusion No 05/17/24 09:10 Hx of Transfusion in last 3 No 05/17/24 09:10 Months Date of Last Transfusion (if within last 3 months) Ever experience any problems No 05/17/24 09:10 with transfusion(s)? Specify any problems Hx of Preganancy in last 3 No 05/17/24 09:10 Months Nurse Filling Out Transfusion VLEHMAN 05/17/24 09:10 & Questions: Date: 05/17/24 05/17/24 09:10 Time: 09:19 05/17/24 09:10 Patient unable to answer at this time (ie. confused, unrespo /Reproduction History /Reproductive History - senior water resources engineer: /Reproductive Hx- senior water resources engineer Hx Now No 05/17/24 09:10 Gestational Age (in weeks): EDC: Hx Hx Para Hx Section SAB No 05/17/24 09:10 [facility] Medical History Marijuana use Former smoker History of echocardiogram Wears glasses Alcohol use Rash Thyroid disease Factor 5 Leiden mutation, heterozygous Pulmonary embolism Gastric reflux CPAP (continuous positive airway pressure) dependence Sleep apnea Depression Hypothyroid History of fibula fracture Home Medications ?Medication ?Instructions ?Recorded ?Last Taken ?Type atorvastatin 10 mg tablet 10 mg PO QHS 10/03/14 Unknown History levothyroxine 88 mcg capsule 88 mcg PO DAILY 07/08/22 Unknown History estradiol 2 mg tablet 2 mg PO DAILY #30 tabs 09/23/22 Unknown Rx cholecalciferol (vitamin D3) 250 250 mcg PO QDAY 04/29/24 Unknown History mcg (10,000 unit) capsule levothyroxine 75 mcg capsule 75 mcg PO MOTUWETHFR 04/29/24 Unknown History dabigatran etexilate 150 mg 150 mg PO QDAY 05/01/24 Unknown History capsule (Pradaxa) fluoxetine 10 mg capsule 40 mg PO DAILY 05/01/24 Unknown History furosemide 20 mg tablet (Lasix) 40 mg PO QAM PRN edema 05/01/24 Unknown History hydroxyzine HCl 10 mg tablet 10 - 20 mg PO Q6 PRN itch 05/01/24 Unknown History omeprazole 20 mg tablet,delayed 20 mg PO BID 05/01/24 Unknown History release valacyclovir 500 mg tablet 500 mg PO BID PRN cold sores 05/01/24 Unknown History sodium,potassium,mag sulfates 17.5 180 ml PO DAILY 2 doses #354 mL 05/08/24 Unknown Rx gram-3.13 gram-1.6 gram oral soln (Suprep Bowel Prep Kit) Allergy/AdvReac Type Severity Reaction Status Date / Time apixaban (From Eliquis) Allergy Rash Verified 05/17/24 09:03 rivaroxaban (From Xarelto) Allergy Rash Verified 05/17/24 09:03 Surgical History History of surgery History of elbow surgery History of hysterectomy Social History Smoking Status: Former smoker alcohol intake: former Review of Systems (Anesthesia) ROS Narrative System reviewed and no additional complaints, except as documented.
--- NOTE | 2024-05-22 09:34 | HP.PCM_ITS ---
History and Physical Date of Admission: 05/22/24 Date of Service: 04/29/24 MR#: [id number] Acct: [id number] Name: AVNI LYNN Rep #: [id number] : 1965 Provider: DAHLIA Hilliard Age/Sex: 59/F Location: [facility] Status: Signed Intake Vital Signs 02/22/2312:29 04/29/2512:06 Height 5 ft 6 in 5 ft 6 in Weight: 251 lb BMI 40.5 BP 126/86 H Blood Pressure Location Rt brachial Position Sitting Respiration 17 Pulse 65 Pulse Source Monitor Pulse Oximetry (%) 96 Oxygen Delivery Method room air Intake Visit Reasons: COLONOSCOPY Chief Complaint: colonoscopy Is patient in pain?: No Allergies apixaban (From Eliquis) Allergy (Verified 04/29/24 13:07) Rashrivaroxaban (From Xarelto) Allergy (Verified 04/29/24 13:07) Rash Medications ?Medication ?Instructions ?Recorded ?Confirmed ?Type atorvastatin 10 mg tablet 5 mg PO QHS 10/03/14 04/29/24 History levothyroxine 88 mcg capsule 88 mcg PO DAILY 07/08/22 04/29/24 Histor y estradiol 2 mg tablet 2 mg PO DAILY #30 tabs 09/23/22 04/29/24 Rx cholecalciferol (vitamin D3) 250 250 mcg PO QDAY 04/29/24 04/29/24 Histor y mcg (10,000 unit) capsule levothyroxine 75 mcg capsule 75 mcg PO QDAY 04/29/24 04/29/24 History tirzepatide (weight loss) 5 mg/0.5 5 mg subcut QWEEK 04/29/24 04/29/24 Hist ory mL subcutaneous pen injector (Zepbound) dabigatran etexilate 150 mg 150 mg PO QDAY 05/01/24 05/01/24 History capsule (Pradaxa) dupilumab 200 mg/1.14 mL 200 mg subcut Q2W 05/01/24 05/01/24 Hist ory subcutaneous pen injector (Dupixent) fluoxetine 10 mg capsule 40 mg PO DAILY 05/01/24 05/01/24 History furosemide 20 mg tablet (Lasix) 40 mg PO QAM PRN 05/01/24 05/01/24 Histo ry hydroxyzine HCl 10 mg tablet 10 - 20 mg PO Q6 PRN itch 05/01/2405/01 History mecobalamin (vitamin B12) 1,000 1,000 mcg PO QDAY 05/01/24 05/01/24 Hist ory mcg chewable tablet metformin 500 mg tablet 500 mg PO BIDWMEAL 05/01/24 05/01/24 His tory omeprazole 20 mg tablet,delayed 20 mg PO BID 05/01/24 05/01/24 History release valacyclovir 500 mg tablet 500 mg PO BID 05/01/24 05/01/24 History PFSH Medical History Depression History of fibula fracture Hypothyroid Surgical History History of elbow surgery History of hysterectomy Social History (Updated 04/29/24 @ 13:06 by Libby Barriga) Smoking Status: Former smoker alcohol intake: former HPI HPI Surgical H&P: Yes HPI: Patient is a 59 y/o F I am seeing for screening colonoscopy and personal history of chronic GERD. Patient notes her last colonoscopy was completed by Dr. Mckeon in 2014 and had no findings or biopsies. It was recommended for the patient to return for a repeat colonoscopy in 10 years. Patient denies any change in bowel habits, abdominal pain, melena, hematochezia or family history of colon cancer. Patient notes she is currently on omeprazole and has been chronically. She has never had an upper scope previously. She notes omeprazole does control her symptoms. She notes a history of factor V Leiden. She is currently on Pradaxa. Patient has tried other blood thinners, however they have caused rashes and had to be discontinued. Patient was once previously on Coumadin, however going weekly or more to have her INR completed was interrupting, so she was placed on Pradaxa. Patient notes she is trying to switch back to Coumadin from Pradaxa and have the insurance pay for her to check her INR at home. She notes being diagnosed with Factor V after having bilateral PE's in 2009 and a right lower extremity blood clot in 2012. Patient notes Xarelto and Eliquis caused puritis. Patient notes she had a previous breast biopsy by Dr. Gonsales. Patient notes she is also on Zepbound for weight loss. ROS General General: Yes weight change; No appetite, fatigue, colon cancer, breast cancer or weakness HEENT HEENT: No difficulty swallowing, eye injury, eye surgery, swollen glands or hoarseness Endo Endocrine: Yes thyroid disease; No diabetes mellitus, thyroid cancer, Hair loss, heat intolerance or cold intole cleo Skin Skin: Yes rash; No changing moles Musc Musculoskeletal: No back problems, arthritis, rheumatoid arthritis, gout or joint pain Cardio Cardiovascular: No murmur, pacemaker, heart disease, atrial fibrillation, high blood pressure, heart attack, heart stent, palpitations, shortness of breat with exertion or chest pain Psych Psychiatric: Yes depression; No anxiety or hearing voices Resp Respiratory: No shortness of breath, Yes sleep apnea, No cough, No COPD, No a sthma, No emphysema and No wheezing Gastro Gastrointestinal: No abdominal pain, No nausea or vomiting, No diarrhea, No constipation, No blood in stool, Yes acid reflux, No hemorrhoids, No ulcers, No gallbladder problem and No black,tarry stools Dipak Hematologic: Yes blood thinners, No blood disorders, No bleeding, No anemia and Yes blood clots Neuro Neurologic: No system reviewed and no additional complaints, except as documented, No as per HPI, No abnormal gait, No abnormal hearing, No abnormal movements, No abnormal speech, No behavioral changes, No burning sensations, No confusion, No convulsions, No disequilibrium, No dizziness, No localized weakness, No frequent falls, No headache(s), No lack of coordination, No loss of vision, No memory loss, Yes numbness, No other visual disturbances, No radicular pain, No restless legs, No sensory deficit, No syncope, Yes tingling, No tremor(s), No weakness and No other Exam Const General: cooperative, healthy appearing and comfortable [facility] Head: normal to inspection Eyes General: appearance normal, both eyes and all related structures Neck Neck: normal visual inspection Neck mass: No Resp Effort & Inspection: normal respiratory effort and able to speak in complete sentences Auscultation: clear to auscultation bilaterally Cardio Rate: regular rate Rhythm: regular rhythm GI Inspection: normal to inspection Palpation: soft and nontender Auscultation: normal bowel sounds Musc Cervical Spine: normal cervical lordosis Skin General: no rashes or lesions noted Neuro General: moves all extremities and no focal motor deficits Extrem General: normal to inspection Psych Appearance: grossly normal Affect: normal affect Assessment and Plan Assessment and Plan (1) Encounter for screening for malignant neoplasm of colon: Status: Acute (2) GERD (gastroesophageal reflux disease): Status: Acute Qualifiers: Esophagitis presence: esophagitis presence not specified Qualified Code(s): K21.9 - Gastro-esophageal reflux disease without esophagitis Plan Patient is due for a screening colonoscopy as it has been 10 years since her last colonoscopy. Patient has chronically been on omeprazole for at least 2 years or longer. Patient has never had a follow-up EGD. Dr. Gonsales will plan to perform an upper and lower scope. Procedure details, risks and benefits have been explained. Patient has had the opportunity to ask and have questions answ ered. Patient was provided Miralax prep instructions, however she would like to use Suprep instead. This will be sent into her pharmacy. I would like to have her hold her Pradaxa for 3 days prior to the procedure. We will obtain clearance from Dr. Weiss to make sure she feels comfortable holding the patient's Pradaxa for 3 days. Patient is also instructed to hold her Zepbound for 1 week prior to the procedure. Patient is agreeable to the above instructions and verbally agrees with the proposed procedure. Coding Level of Care Code Off vis,est,level 4 Diagnoses Encounter for screening for malignant neoplasm of colon Z12.11 Gastroesophageal reflux disease, unspecified whether esophagitis present K21.9 Esophagitis presence: esophagitis presence not specified 05/01/24 1517 <Electronically signed by Ya WILDER PA-C> Date Ya WILDER PA-C
--- NOTE | 2024-05-22 10:15 | EGD_PTH ---
PATIENT: MARLI LYNN LOC: EN U#:[id number] AGE/SX: 59/F ROOM: RE05/22/[address]: Dr. Roseanna Gonsales MD : 1965 BED: DIS: 05/22/2024 SPEC #: [id number] RECD: 05/22/24 13:21 STATUS: JACQUI SRAVANI #: [id number] MIKE: 05/22/24 10:[address]: Roseanna Gonsales DEPT: SURGICAL PATHOLOGY RECD BY: Taco Gomez ENTERED: 05/22/24 13:21 SP TYPE: EGD BIOPSY LILI DR: Dr. Marli Weiss DO Tissues: A - Gastric mucous membrane B - Transverse colon Procedures: Immunohistochemical Stains Surgery Specimen Level IV HEADER OPERATION: Colonoscopy with biopsy, EGD with biopsy PRE-OP DIAGNOSIS: Encounter for screening for malignant neoplasm of colon, GERD TISSUE SUBMITTED: A- Antrum biopsy, B- Transverse colon polyp biopsy MICROSCOPIC DIAGNOSIS A. STOMACH, ANTRUM, BIOPSY: -CHRONIC INFLAMMATION WITH FEATURES OF REACTIVE GASTROPATHY. -IHC IS NEGATIVE FOR H PYLORI ORGANISMS. B. TRANSVERSE COLON, POLYP, BIOPSY: -TUBULAR ADENOMA. MICROSCOPIC DESCRIPTION Slides are reviewed. These tests were developed and their performance characteristics determined by [facility]. They may not have been cleared or approved by the U.S. Food and Drug Administration. The FDA has determined that such clearance or approval is not necessary. The above immunohistochemical/dualISH markers are ordered and reviewed by the Pathologist. GROSS DESCRIPTION A. Received in fixative is one container labeled with the patient's name and designated Antrum biopsy. The specimen consists of one irregular fragment of light rodriguez soft tissue that measures 0.6 x 0.3 x 0.2 cm. The specimen is totally submitted in one cassette. B. Received in fixative is one container labeled with the patient's name and designated Transverse colon polyp biopsy. The specimen consists of multiple irregular fragments of light rodriguez soft tissue that in aggregate measure 1.1 x 0.2 x 0.2 cm. The specimen is totally submitted in one cassette. REGGIEBrenna 05/22/2024 CPT:08259a3,15692
--- NOTE | 2024-05-22 11:00 | OP.EGD_ITS ---
Patient Name: Marli Pantoja Procedure Date: 05/22/2024 10:21 AM Date of : 1965 Age: 59 Procedure: Upper GI endoscopy Indications: Heartburn Providers: Roseanna Gonsales MD Medicines: Monitored Anesthesia Care Patient Profile: This is a 59 year old female. Complications: No immediate complications. Procedure: Pre-Anesthesia Assessment: - Prior to the procedure, a History and Physical was performed, and patient medications and allergies were reviewed. The patient's tolerance of previous anesthesia was also reviewed. The risks and benefits of the procedure and the sedation options and risks were discussed with the patient. All questions were answered, and informed consent was obtained. Prior Anticoagulants: The patient has taken Pradaxa (dabigatran), last dose was 3 days prior to procedure. ASA Grade Assessment: Per anesthesia. After reviewing the risks and benefits, the patient was deemed in satisfactory condition to undergo the procedure. After obtaining informed consent, the endoscope was passed under direct vision. Throughout the procedure, the patient's blood pressure, pulse, and oxygen saturations were monitored continuously. The Colonoscope was introduced through the mouth, and advanced to the second part of duodenum. The upper GI endoscopy was accomplished without difficulty. The patient tolerated the procedure well. Scope In: 10:34:22 AM Scope Out: 10:38:40 AM Total Procedure Duration Time 0 hours 4 minutes 18 seconds Findings: A small hiatal hernia was present. The Z-line was regular and was found 35 cm from the incisors. The examined duodenum was normal. No gross lesions were noted in the entire esophagus. Mildly erythematous mucosa without bleeding was found in the gastric antrum. Biopsies were taken with a cold forceps for histology. Biopsies were taken with a cold forceps for Helicobacter pylori cultures. Impression: - Small hiatal hernia. - Z-line regular, 35 cm from the incisors. - Normal examined duodenum. - No gross lesions in the entire esophagus. - Erythematous mucosa in the antrum. Biopsied. Recommendation: - Await pathology results. - Discharge patient to home. - Resume previous diet. - Continue present medications. Procedure Code(s): --- Professional --- 65576, Esophagogastroduodenoscopy, flexible, transoral; with biopsy, single or multiple Diagnosis Code(s): --- Professional --- K44.9, Diaphragmatic hernia without obstruction or gangrene K31.89, Other diseases of stomach and duodenum R12, Heartburn CPT copyright 2021 [employer]. All rights reserved. The codes documented in this report are preliminary and upon user experience researcher review may be revised to meet current compliance requirements. MD Roseanna Rodriguez MD 05/22/2024 11:00:06 AM This report has been signed electronically. Number of Addenda: 0 Note Initiated On: 05/22/2024 10:21 AM
--- NOTE | 2024-05-22 11:00 | OP.CCLET_ITS ---
05/22/2024 Marli Weiss [address] [facility] [place] [address] Re : Upper GI endoscopy procedure for Marli Pantoja Dear Dr. Weiss This procedure was performed on Wednesday, May 22, 2024. My impressions and recommendations are as follows: Impressions : - Small hiatal hernia. - Z-line regular, 35 cm from the incisors. - Normal examined duodenum. - No gross lesions in the entire esophagus. - Erythematous mucosa in the antrum. Biopsied. Recommendations : - Await pathology results. - Discharge patient to home. - Resume previous diet. - Continue present medications. My findings are described in the full procedure note, which is enclosed. If I can be of further assistance, please feel free to contact me at Doctor phone number(s): , Work: . Sincerely, MD Roseanna Rodriguez MD 05/22/2024 11:00:06 AM This report has been signed electronically.
--- NOTE | 2024-05-22 11:03 | OP.COLON_ITS ---
Patient Name: Marli Pantoja Procedure Date: 05/22/2024 10:38 AM Date of : 1965 Age: 59 Procedure: Colonoscopy Indications: Screening for colorectal malignant neoplasm Providers: Roseanna Gonsales MD Medicines: Monitored Anesthesia Care Patient Profile: This is a 59 year old female. Last Colonoscopy: 2014. Complications: No immediate complications. Procedure: Pre-Anesthesia Assessment: - Prior to the procedure, a History and Physical was performed, and patient medications and allergies were reviewed. The patient's tolerance of previous anesthesia was also reviewed. The risks and benefits of the procedure and the sedation options and risks were discussed with the patient. All questions were answered, and informed consent was obtained. Prior Anticoagulants: The patient has taken Pradaxa (dabigatran), last dose was 3 days prior to procedure. ASA Grade Assessment: Per anesthesia. After reviewing the risks and benefits, the patient was deemed in satisfactory condition to undergo the procedure. After I obtained informed consent, the scope was passed under direct vision. Throughout the procedure, the patient's blood pressure, pulse, and oxygen saturations were monitored continuously. The Colonoscope was introduced through the anus and advanced to the cecum, identified by the appendiceal orifice, ileocecal valve and palpation. The colonoscopy was performed without difficulty. The patient tolerated the procedure well. The quality of the bowel preparation was good. Scope In: 10:45:24 AM Scope Withdrawal Time 0 hours 7 minutes 15 seconds Scope Out: 10:56:24 AM Total Procedure Duration Time 0 hours 11 minutes 0 seconds Findings: The perianal and digital rectal examinations were normal. A less than 5 mm polyp was found in the transverse colon. The polyp was sessile. The polyp was removed with a cold biopsy forceps. Resection and retrieval were complete. The exam was otherwise without abnormality on direct and retroflexion views. Impression: - One less than 5 mm polyp in the transverse colon, removed with a cold biopsy forceps. Resected and retrieved. - The examination was otherwise normal on direct and retroflexion views. Recommendation: - Discharge patient to home. - Resume previous diet. - Continue present medications. - Await pathology results. - Repeat colonoscopy in 5 years for surveillance based on pathology results. Procedure Code(s): --- Professional --- 61337, PT, Colonoscopy, flexible; with biopsy, single or multiple Diagnosis Code(s): --- Professional --- Z12.11, Encounter for screening for malignant neoplasm of colon D12.3, Benign neoplasm of transverse colon (hepatic flexure or splenic flexure) CPT copyright 2021 [employer]. All rights reserved. The codes documented in this report are preliminary and upon black top paver operator review may be revised to meet current compliance requirements. MD Roseanna Rodriguez MD 05/22/2024 11:02:59 AM This report has been signed electronically. Number of Addenda: 0 Note Initiated On: 05/22/2024 10:38 AM
--- NOTE | 2024-05-22 11:03 | OP.CCLET_ITS ---
05/22/2024 Marli Weiss [address] [place] [address] Re : Colonoscopy procedure for Marli Pantoja Dear Dr. Weiss This procedure was performed on Wednesday, May 22, 2024. My impressions and recommendations are as follows: Impressions : - One less than 5 mm polyp in the transverse colon, removed with a cold biopsy forceps. Resected and retrieved. - The examination was otherwise normal on direct and retroflexion views. Recommendations : - Discharge patient to home. - Resume previous diet. - Continue present medications. - Await pathology results. - Repeat colonoscopy in 5 years for surveillance based on pathology results. My findings are described in the full procedure note, which is enclosed. If I can be of further assistance, please feel free to contact me at Doctor phone number(s): , Work: . Sincerely, MD Roseanna Rodriguez MD 05/22/2024 11:02:59 AM This report has been signed electronically.
--- NOTE | 2024-05-22 11:10 | PCM.POST.ANE ---
Anesthesia: Postop Eval I Current Vital Signs Temperature: 98.3 F Pulse Rate: 67 Blood Pressure: 130/64 Respiratory Rate: 16 Pulse Ox: 100 Oxygen Delivery Method: Room Air Assessment Airway patent: Yes Spontaneous unlabored respirations: Yes Mental status: Awake and Calm nausea: No Vomiting: No Anesthesia Complication: Yes Anesthesia Complication Comment:: O2 desat during EGD d/t profuse coughing, suctioned, decadron adm, switch to SFM O2, case completed w/out further cx Fluid Hydration Crystalloid volume administer (ml): 75 Total IV fluid infused: 75 Progress Note Anesthesia document: Postop Eval 1 completed: Yes
--- NOTE | 2024-05-22 11:50 | PCM.POSTANE2 ---
Anesthesia Postop Eval I Sum Postop Eval Completion status Anesthesia document: Postop Eval 1 completed: Yes Anesthesia Postop Eval I Summary Anesthesia Postop Eval I Summary: Anesthesia Postop Eval I: Assessment Summary Airway patent Yes 05/22/24 11:13 [email or web address] Spontaneous unlabored Yes 05/22/24 11:13 [email or web address] respirations Mental status Awake,Calm 05/22/24 11:13 [email or web address] nausea No 05/22/24 11:13 [email or web address] Vomiting No 05/22/24 11:13 [email or web address] Anesthesia Postop Eval I: Fluid Summary Crystalloid volume administer 75 05/22/24 11:13 [email or web address] (ml) Colloids volume administered ( ml) Blood Product volume administered (ml) Total IV fluid infused 75 05/22/24 11:13 [email or web address] Anesthesia Postop Eval I: Summary Notes Anesthesia Complication Yes 05/22/24 11:13 [email or web address] Anesthesia Complication O2 desat during 05/22/24 11:13 [email or web address] Comment: EGD d/t profuse coughing, suctioned, decadron adm, switch to SFM O2, case completed w/ out further cx Post-operative progress note Anesthesia: Postop Eval II Evaluation Mental status: Awake Pain Level: 0 nausea: No Vomiting: No
== END 2024-05-22 11:34 | disposition home or self-care (01) ==
LOC: EN 09:07 → AC 09:09
PROVIDERS: PCP Family Medicine; Referring Provider Family Medicine; Visit Provider Surgery
PROC: 0DJD8ZZ Inspection of Lower Intestinal Tract, Via Natural or Artificial Opening Endoscopic (ICD-10-PCS; CPT 45378; principal; 2024-05-22 10:10)
DX: Z12.11 Encounter for screening for malignant neoplasm of colon (principal); D68.2 Hereditary deficiency of other clotting factors; K44.9 Diaphragmatic hernia without obstruction or gangrene; K63.5 Polyp of colon; K31.89 Other diseases of stomach and duodenum; K21.9 Gastro-esophageal reflux disease without esophagitis; Z87.891 Personal history of nicotine dependence; Z79.890 Hormone replacement therapy; D12.3 Benign neoplasm of transverse colon; E03.9 Hypothyroidism, unspecified; Z90.710 Acquired absence of both cervix and uterus
CPT/HCPCS: 43239; 45380; 88305; 88342; A4216; J2405

== ENCOUNTER → 2024-11-18 | Outpatient (CLI) | payer OTHER, SELFPAY ==
--- NOTE | 2024-11-18 13:07 | CT_ITS ---
PROCEDURE: LOW DOSE CT LUNG SCREENING 11/18/2024 REASON FOR EXAM: SCREENIG TECHNIQUE: Procedure Code: [id number] Modality: CT Procedure: LOW DOSE CT LUNG SCREENING Coronal and Sagittal reconstruction series were provided. One or more dose reduction techniques were used (e.g., Automated exposure control, adjustment of the mA and/or kV according to patient size, use of iterative reconstruction technique). REFERENCE LINK: [employer] Lung-RADS RADIATION DOSE SUMMARY: CTDlvol: For mGy DLP: 129 mGycm COMPARISON: Previous examination dated 11/18/[address] of the chest of 01/17/2019. FINDINGS: Base of the neck: Normal. Lymph Nodes:None Heart and Vasculature: The heart is in the upper limits of normal. There is no suspicious coronary arterial calcification. There is no pericardial effusion. The aorta is of normal caliber. Lungs and Airways: The lungs are clear. There is no suspicious pulmonary nodule or ground-glass opacity. The airway is patent. Pleura:No effusion or pneumothorax. No acute abnormality Upper Abdomen: Bones:Multilevel disc disease CT/Low Dose CT Lung Screening IMPRESSION: No suspicious pulmonary nodule or ground-glass opacity. Coronary artery calcification (CAC) is is absent Lung-RADS Category: 1 NEGATIVE. RECOMMEND 12-MONTH SCREENING LDCT. Other Significant Findings: None Reading Location: [facility]
== END | disposition home or self-care (01) ==
PROVIDERS: PCP Family Medicine; Referring Provider Family Medicine; Visit Provider Family Medicine
DX: Z12.2 Encounter for screening for malignant neoplasm of respiratory organs (principal); Z87.891 Personal history of nicotine dependence; R91.8 Other nonspecific abnormal finding of lung field
CPT/HCPCS: 71271